=== PATIENT | male | born 1950 | race Caucasian/White ===

== ENCOUNTER → 2016-11-13 | Outpatient (CLI) | payer MEDICARE ==
[2016-11-13 13:14] VITALS: BP 142/92; PULSE 63; RESP 16; TEMP 97.9
--- NOTE | 2016-11-14 10:59 | P.PN ---
Subjective This is follow-up visit for this patient with a history of severe and chronic low back pain secondary to lumbar degenerative disc disease, lumbar facet arthropathy, and failed back surgery syndrome, with the spinal cord stimulatory trial and patient was referred to see Dr. Bingham for possible spinal cord simulator permanent implant, and Dr. Bingham recommend that patient would be better off to have intrathecal pain pump, and he did not recommend to proceed with the spinal cord stim date of implantation we have done interventional pain management injection,, and is currently on pain medications 1-MS Contin 15 mg every 12 hours 2- Percocet 10/325 every 6 hours 3- Cymbalta 30 mg daily Patient denies any side effects of the medication, denies excessive drowsiness or sleepiness, denies suicidal ideation, and reports that the current pain medication is NOT helping To control the pain and improve activity of daily living Physical Examinations : 1-Constitutiona : Cooperative , not in acute distress . 2-HEENT : nech ; supple , no Lymphadenopathy , no Thyromegaly , normal thyroid size . eyes : no ptosis , no icterus, no photophobia . ENT : normal of hearing , normal oropharynx , no Thrush . 3- Respiratory : Chest clear to auscultations Bilaterally , no wheezing , no Rhonchi . 4- Cardiovascular : regular rate and rhythem , S1 , S2 , no S3 , no S4. 5- Gastrointestinal : abdomen soft no tenderness , bowel sounds positive all four quadrents , no organomegally . 6- Genitourinary : Defferred . 7- neurologic : Cranial nerve II to XII intact , no focal neurological deffecit . 8-psychatric : alert , oriented X 3 , appropriate affect , intact judgment and insight . 9-Lymphatic : no Lymphadenopathy . 10- musculoskeltal : exams of the cervical spine = motor strength normal bilateral upper extremities facet loading test cervical area positive. exams of the Lumber spine = motor strength lower extremities ,thigh and legs .5/5 deep tendon reflexes : normal Knee Jerk , normal ankle Jerk . lumber facet Loading Test positive strait leg raising test positive at 30 degree , RT ,LT , Fabere test positive RT and positive LT . Range of motion: Range of motion in flexion of the lumbar spine 30 degrees Range of motion range of motion of extension of the lumbar spine 10 Sever tenderness over the Sacroiliac joint on the Right , and Left side Assessment and plan = - Chronic low back pain secondary to lumbar degenerative disc disease , lumbar spondylosis with facet arthropathy without myelopathy , failed back surgery syndrome -chronic and current use of high-risk medication (Opioids). The patient was counseled about risk of opioid use, psychological risk associated with opioids and was orally counseled to not overuse , abuse , divert ,or sell dictations to take medications as prescribed only , and to restore medication in safe location , and patient counseled against driving while using narcotic medications, and also not to use alcohol or any illicit recreational drugs the patient's verbalized understanding that the lack of compliance will result in failure to renew narcotic prescription and possible discharge from the clinic - diagnoses, prognosis, and treatment options including but not limited to physical therapy, surgical interventions, interventional therapies and medication management including narcotics and adjuvant medication were discussed with the patient and all questions answered to the patient's satisfaction. -medication refile =1- increase MS Contin to 15 mg every 8 hours dispense 90 with 1 refill 2- continue Percocet 10/325 every 6 hours for breakthrough pain dispense 120 with one refill 3-continue Cymbalta 30 mg daily and patient will be candidate for intrathecal pain pump in the future if pain is not well controlled this option discussed with the patient and he preferre not to do intrathecal pain pump now, he preferred to wait to evaluate the efficacy of the medication management Objective - Vital Signs Vital signs: Vital Signs Temp 97.9 F 11/13/16 13:03 Pulse 63 11/13/16 13:03 Resp 16 11/13/16 13:03 BP 142/92 11/13/16 13:03 Pulse Ox 95 11/13/16 13:03 Intake & Output 11/13/16 11/14/16 11/14/16 18:59 06:59 18:59 Weight 103.873 kg
== END | disposition home or self-care (01) ==
LOC: PNWHC3 12:42
PROVIDERS: ATTEND Specialist
DX: G89.29 Other chronic pain (principal); M51.36 Other intervertebral disc degeneration, lumbar region; M47.816 Spondylosis without myelopathy or radiculopathy, lumbar region; M46.96 Unspecified inflammatory spondylopathy, lumbar region; Z79.891 Long term (current) use of opiate analgesic; Z79.899 Other long term (current) drug therapy
CPT/HCPCS: 99211

== ENCOUNTER → 2017-01-08 | Outpatient (CLI) | payer MEDICARE ==
[2017-01-08 12:22] VITALS: BP 139/79; PULSE 55; RESP 16; TEMP 98.1
--- NOTE | 2017-01-08 13:10 | P.CONS ---
History of Present Illness - Reason for Consult Consult date: 01/08/17 - Chief Complaint Severe persistent low back pain radiating into the legs - History of Present Illness This pleasant 66-year-old male presents today for continuing evaluation of possible therapeutic intervention with regards to his chronic low back and lower extremity related pain complaints. He is interviewed and examined and the chart is reviewed full with patient's full consent. Mr. Romero relates long-standing history of low back lower extremity related symptoms dating back many many years. He most recently has undergone a trial of the spinal cord stimulator which did not provide him with a noticeable and/or significant improvement in his levels pain symptomatology, or his quality of life. The stimulator lead was eventually removed and he is back to essentially his baseline level of discomfort. Despite taking 45 mg of MS Contin in 3 divided doses daily as well as for 10 mg oxycodone tablets as breakthrough medication on a daily basis, he still is experiencing significant discomfort and disability almost every day. He describes pain still as an aching throbbing burning sensation in the midportion of his low back with direct and immediate extension and the bilateral paravertebral areas increased amounts of activity or exercise also workings both the neuraxial as well as the radicular component to his pain. It was at this point time I had a long discussion with Mr. Romero regarding a variety of therapeutic options available to him. I told him that I was not ready to completely give up on either spinal cord stimulation and/or intrathecal pump placement as a definitive course of therapy for him. At today' s visit however I we agreed that we would increase his total MS Contin dosing to 60 mg in 2 divided doses (up from 45 mg), and continue with the oxycodone dosing for breakthrough pain medication as previously ordered. We would see the efficacy of his new pharmacologic regimen, and make further decisions based upon his been a pleasure again participating this very nice traumas care and we look forward to seeing him in the next 4-6 weeks Past Medical History Past Medical History: Eye Disorder, Musculoskeletal Disorder, Osteoarthritis (OA ) Additional Past Medical History / Comment(s): degenerative arthritis of the spine, macular degeneration rt eye, PAIN CLINIC History of Any Multi-Drug Resistant Organisms: None Reported Past Surgical History: Back Surgery, Heart Catheterization, Hernia Repair, Joint Replacement, Orthopedic Surgery Additional Past Surgical History / Comment(s): back surgeries x4 with fusion of 5 disc, ramin. knee replacement, hemorrhoid, COLONOSCOPY, l hand tendon arthroscopy 06/03/2016, r hand surgery 07/2016, RT EYE injection 07/12/16 FOR MACULAR DEGENERATION Past Anesthesia/Blood Transfusion Reactions: No Reported Reaction Past Psychological History: No Psychological Hx Reported Smoking Status: Former smoker Past Alcohol Use History: Occasional Additional Past Alcohol Use History / Comment(s): STARTED SMOKING AT AGE 18 QUIT 1980 SMOKED 1/2PPD Past Drug Use History: None Reported Additional Drug Use History / Comment(s): quit smoking 40 yrs ago, only smoked 2 -3 yrs. - Past Family History Father Family Medical History: Cancer Additional Family Medical History / Comment(s): PROSTATE CANCER Medications and Allergies Home Medications Medication Instructions Recorded Confirmed Type Ascorbic Acid [Vitamin C] 500 mg PO DAILY 09/12/15 01/08/17 History Cholecalciferol [Vitamin D3] 1,000 unit PO DAILY 09/12/15 01/08/17 History DULoxetine HCL [Cymbalta] 30 mg PO HS 09/12/15 01/08/17 History Vit A/Vit C/Vit E/Zinc/Copper 1 cap PO DAILY 09/12/15 01/08/17 History [ICAPS SOFTGEL] Morphine Sulfate ER [Ms Contin] 30 mg PO BID 01/08/17 01/08/17 History Allergies Allergy/AdvReac Type Severity Reaction Status Date / Time Iodine and Iodide Containing Allergy Severe Rash/Hives Verified 01/08/17 12:13 Produc fentanyl [From Duragesic] Allergy Rash/Hives Verified 01/08/17 12:13 iodine Allergy Rash/Hives Verified 01/08/17 12:13 Physical Exam Osteopathic Statement: *. No significant issues noted on an osteopathic structural exam other than those noted in the History and Physical/Consult. Vitals: Vital Signs Temp Pulse Resp BP Pulse Ox 01/08/17 12:15 98.1 F 55 L 16 139/79 95 Intake and Output 01/07/17 01/08/17 01/08/17 22:59 06:59 14:59 Other: Weight 104.326 kg Patient Weight 01/09/17 06:59 Weight 104.326 kg
== END | disposition home or self-care (01) ==
LOC: PNWHC3 11:58
PROVIDERS: ATTEND Anesthesiology
DX: G89.29 Other chronic pain (principal); M54.5 Low back pain; M79.662 Pain in left lower leg; M79.661 Pain in right lower leg; M47.9 Spondylosis, unspecified; Z98.1 Arthrodesis status; Z79.899 Other long term (current) drug therapy; Z87.891 Personal history of nicotine dependence; Z88.8 Allergy status to other drugs, medicaments and biological substances
CPT/HCPCS: 99211

== ENCOUNTER → 2017-03-05 | Outpatient (CLI) | payer MEDICARE ==
[2017-03-05 14:51] VITALS: BP 153/89; PULSE 57; RESP 16; TEMP 98
--- NOTE | 2017-03-05 15:24 | P.PN ---
Subjective This is follow-up visit for this patient with a history of severe and chronic low back pain , diagnosed with failed back surgery syndrome and lumbar area, patient had multiple lumbar laminectomy and fusion surgeries, and he continued to have severe low back pain we have done interventional pain management injection, spinal cord stimulator trial, and it was negative, and is currently on pain medications 1-MS Contin 60 mg twice a day 2-Percocet 10/325 every 6 hours 3-symbiotic for 30 mg daily at bedtime Patient denies any side effects of the medication, denies excessive drowsiness or sleepiness, denies suicidal ideation, and reports that the current pain medication is NOT helping To control the pain and improve activity of daily living Patient denies any motor or sensory deficit , patient denies any fever or night sweats, denies any change in the bowel movements or urination, the pain intensity interfering with his quality of life and patient not able to do any activity of daily livings because of the intensity of the pain Physical Examinations : 1-Constitutiona : Cooperative , not in acute distress . 2-HEENT : nech ; supple , no Lymphadenopathy , no Thyromegaly , normal thyroid size . eyes : no ptosis , no icterus, no photophobia . ENT : normal of hearing , normal oropharynx , no Thrush . 3- Respiratory : Chest clear to auscultations Bilaterally , no wheezing , no Rhonchi . 4- Cardiovascular : regular rate and rhythem , S1 , S2 , no S3 , no S4. 5- Gastrointestinal : abdomen soft no tenderness , bowel sounds positive all four quadrents , no organomegally . 6- Genitourinary : Defferred . 7- neurologic : Cranial nerve II to XII intact , no focal neurological deffecit . 8-psychatric : alert , oriented X 3 , appropriate affect , intact judgment and insight . 9-Lymphatic : no Lymphadenopathy . 10- musculoskeltal : exams of the cervical spine = motor strength normal bilateral upper extremities facet loading test cervical area positive. exams of the Lumber spine = motor strength lower extremities ,thigh and legs .5/5 deep tendon reflexes : normal Knee Jerk , normal ankle Jerk . lumber facet Loading Test positive strait leg raising test positive at 30 degree , RT ,LT , Fabere test positive RT and positive LT . Range of motion: Range of motion in flexion of the lumbar spine 30 degrees Range of motion range of motion of extension of the lumbar spine 10 Sever tenderness over the Sacroiliac joint on the Right , and Left side Assessment and plan = - Chronic low back pain secondary to lumbar failed back surgery syndrome and lumbar area - chronic and current use of high-risk medication (Opioids). The patient was counseled about risk of opioid use, psychological risk associated with opioids and orally counseled to not overuse , divert,or sell dictations to take medications as prescribed only , and to restore medication in safe location , and the patient counseled against driving while using narcotic medications, and also not to use alcohol or any illicit recreational drugs, the patient's verbalized understanding that the lack of compliance will result in failure to renew narcotic prescription and possible discharge from the clinic - diagnoses, prognosis, and treatment options including but not limited to physical therapy, surgical interventions, interventional therapies , and medication management including narcotics and adjuvant medication were discussed with the patient and all questions answered Patient continued to have severe pain , even though he is on a high-dose pain medication, patient could be a candidate to have intrathecal pain pump, risk and benefit of intrathecal pain pump discussed with the patient and he agreed with the preceding patient will be scheduled to have, intrathecal pain pump trial, patient already had psychiatric evaluation done in the past, there was no contraindication to the pump, patient given prescription refills for MS Contin 60 mg twice a day dispense 60 with 1 refill and Percocet 10/325 every 6 hours dispense 120 with one refill and Cymbalta 30 mg daily at bedtime dispense 30 with one refill Objective - Vital Signs Vital signs: Vital Signs Temp 98.0 F 03/05/17 14:45 Pulse 57 L 03/05/17 14:45 Resp 16 03/05/17 14:45 BP 153/89 03/05/17 14:45 Pulse Ox 97 03/05/17 14:45 Intake & Output 03/04/17 03/05/17 03/05/17 18:59 06:59 18:59 Weight 102.058 kg
== END | disposition home or self-care (01) ==
LOC: PNWHC3 13:37
PROVIDERS: ATTEND Specialist
DX: M54.5 Low back pain (principal); G89.29 Other chronic pain; M96.1 Postlaminectomy syndrome, not elsewhere classified; Z79.891 Long term (current) use of opiate analgesic
CPT/HCPCS: 99211

== ENCOUNTER 2017-04-21 06:45 | Day surgery (SDC) | payer MEDICARE ==
[2017-04-21] MEDS ORDERED: LACTATED RINGERS 1,000 ML IV SCH (07:45)
[2017-04-21] MEDS ORDERED: MORPHINE SULFATE (PF) 1 MG/ML AMP INTRATHECA ONE (08:00)
[2017-04-21] MEDS ORDERED: LIDOCAINE 1% 20 ML VIAL (10MG/ML) FOR IV START INTRADERMA ONE (08:07)
[2017-04-21 08:22] VITALS: TEMP 97.8
[2017-04-21] MEDS ORDERED: MIDAZOLAM 2 MG/2 ML VIAL ONE (08:28)
[2017-04-21] MEDS ORDERED: IOHEXOL 180 MG/ML 1 ML ML ONE (08:28)
[2017-04-21] MEDS ORDERED: MORPHINE SULFATE (PF) 1 MG/ML AMP ONE (08:28)
[2017-04-21] MEDS ORDERED: IV FLUID CONTINUATION 1,000 ML IV ONE (08:46)
[2017-04-21 09:23] VITALS: BP 153/82; PULSE 55; RESP 16
--- NOTE | 2017-04-21 09:27 | FL ---
EXAMINATION TYPE: FL guided pain mgmt statistic DATE OF EXAM: 04/21/2017 CLINICAL HISTORY: Low back pain. Lumbar pain pump trial. TECHNIQUE: Fluoroscopy. COMPARISON: MRI lumbar spine August 26, 2016. FINDINGS: Fluoroscopic guidance was provided during pain relief procedure performed by Dr. Clark . A total of 8 seconds of fluoroscopic time was utilized during the procedure and two spot images are a cquired. Images acquired shows needle localization from posterior approach at L4 level. Artificial d isc material is present above this. IMPRESSION: As Above.
--- NOTE | 2017-04-21 11:27 | P.PCN ---
Date of Procedure: 04/21/17 Preoperative Diagnosis: Postoperative Diagnosis: Procedure(s) Performed: Implants: Surgeon: Joon Clark Pathology: none sent Condition: stable Disposition: PACU Indications for Procedure: Operative Findings: Description of Procedure: PREOPERATIVE DIAGNOSIS: -Postlaminectomy syndrome, lumbar -Intractable back pain POSTOPERATIVE DIAGNOSIS: same ANESTHESIA: : Local with 1% lidocaine; IV sedation with Versed. EBL: Minimal. PROCEDURE INDICATION: History of back pain secondary to lumbar postlaminectomy syndrome that has been only moderately responsive to oral opioids but not without intolerable opioid-related side effects including sedation and constipation. Only intrathecal fentanyl and morphine are available at our institution and the patient has an allergy to fentanyl and thus intrathecal morphine was used. No use of blood thinners. Fluoroscopy was used to optimize visualization of the needle placement, to maximize safety, and to decrease patients discomfort. Patient did not use any of his oral narcotics this morning. PROCEDURE DESCRIPTION: The patient was seen and identified in the preoperative area. Risks, benefits, complications, and alternatives, with risks including but not limited to bleeding, infection, nerve damage, incomplete pain relief, and allergic reactions to medications, were discussed with the patient. The patient agreed to proceed with the procedure and signed the consent after all questions were answered. IV was started, and vital signs were stable. Patient was taken to the OR and time out was completed. The patient was placed in the prone position on procedure table and a pillow was placed under the abdomen to reduce lumbar lordosis. The lumbosacral area was prepped and draped in the usual sterile fashion. Critical pause was taken. Vital signs were closely monitored during the procedure. Conscious sedation was used during the procedure to decrease patients anxiety. The fluoroscopic camera was then placed over the lumbar spine to identify the L4-5 interlaminar space. The skin and deeper structures were infiltrated with 1 mL of 1% lidocaine. Then a 22-gauge 3-1/2-inch spinal needle was guided by fluoroscopy using the paramedian approach into the intrathecal space and there was positive back flow of CSF. There was no paresthesia. Then after negative aspiration for blood and negative for paresthesia and positive aspiration for CSF, preservative free morphine 1 mg was injected and 1 ml PF 0.9% NS was injected after to spread the medication. The needle was withdrawn intact, skin was cleansed, and bandages were applied. COMPLICATIONS: None. COMMENTS: Patient reported a 70% improvement in pain level after the procedure but was still having some pain with walking. DISPOSITION / PLANS: The patient was placed in a supine position and transferred to the recovery area in a stable condition for observation for 4hrs and remained stable until discharge home. Level of pain and occurrence of any side effects were monitored throughout the stay. Home discharge instructions given to the patient by the staff and it is understood that someone needed to stay with the patient over the next 24hrs and if difficulty of breathing or changes in the level of consciousness should occur to go to the nearest ER; I also educated the patient's regarding nausea, vomiting, constipation, sedation, possibility of severe respiratory depression, and possible postdural puncture headache. The patient was reexamined prior to discharge and there were no issues.
== END 2017-04-21 10:23 | disposition home or self-care (01) ==
LOC: ORPAIN 06:45
PROVIDERS: ATTEND Anesthesiology
DX: G89.29 Other chronic pain (principal); M96.1 Postlaminectomy syndrome, not elsewhere classified; F32.9 Major depressive disorder, single episode, unspecified; Z88.5 Allergy status to narcotic agent; Z88.8 Allergy status to other drugs, medicaments and biological substances; Y83.8 Other surgical procedures as the cause of abnormal reaction of the patient, or of later complication, without mention of misadventure at the time of the procedure; Z79.891 Long term (current) use of opiate analgesic; Z79.899 Other long term (current) drug therapy
CPT/HCPCS: 62350; J2250; Q9965; J2274; 99152

== ENCOUNTER → 2017-05-26 | Outpatient (CLI) | payer MEDICARE ==
[2017-05-26 11:09] VITALS: BP 126/77; PULSE 56; RESP 16; TEMP 98.6
--- NOTE | 2017-05-26 11:33 | P.PN ---
Progress Note - Text This is a 67-year-old gentleman with history of failed back surgery syndrome. The patient underwent intrathecal morphine trial a few weeks ago which gave him more than 80% of pain relief for about 24 hours. It also give him short period of difficulty with urination. During this 24 hours of pain improvement he did not use any of his oral opioids. The patient denies any history of prostate problems. This point I think the patient may benefit from getting intrathecal morphine pump implantation I will refer him Dr. Bingham for that. The plan will be to reduce his oral opioids gradually over time after he gets the pump placed. Today I'll give her prescription for 2 months of his MS Contin 60 mg twice a day and Percocet 10 mg 3-4 times a day. He is alert oriented 3 in no apparent distress he does not show any drug-seeking behavior.
== END ==
LOC: PNWHC3 10:51
PROVIDERS: ATTEND Anesthesiology
DX: M54.9 Dorsalgia, unspecified (principal)
CPT/HCPCS: 99211

== ENCOUNTER → 2017-07-21 | Outpatient (CLI) | payer MEDICARE ==
[2017-07-21 13:31] VITALS: BP 138/68; PULSE 58; RESP 16; TEMP 97.9
--- NOTE | 2017-07-21 13:48 | P.PN ---
Progress Note - Text Progress Note Date: 07/21/17 This is a 67-year-old male with history of failed back surgery syndrome and chronic lower back pain. The patient had very good response to an intrathecal opioid trial and he was scheduled to have intrathecal opioid pump placed by Dr. Bingham however the case was canceled due to the inability to receive the pump from its commercial appraiser.] The patient is doing relatively well with his Daily dose of opioids including MS Contin 60 mg twice a day and Percocet 10 mg 4 times a day. And today I will give him prescription for the above-mentioned medications for 2 months in addition to his Cymbalta 30 mg once a day. The patient is alert oriented 3 no apparent distress he came with his and he denies any suicidal ideation ideation and he does not show any signs of oversedation. We will see the patient 2 months from now.
== END ==
LOC: PNWHC3 12:47
PROVIDERS: ATTEND Anesthesiology
DX: M54.5 Low back pain (principal); G89.29 Other chronic pain; Z79.891 Long term (current) use of opiate analgesic
CPT/HCPCS: 99211

== ENCOUNTER → 2017-09-11 | Outpatient (CLI) | payer MEDICARE ==
[2017-09-11 12:16] VITALS: BP 130/72; PULSE 55; RESP 16
--- NOTE | 2017-09-11 13:59 | P.PCN ---
Date of Procedure: 09/11/17 Procedure(s) Performed: OPERATION: Intrathecal pain pump analysis, programming and reprogramming, and intrathecal pain pump initial filling . PREOPERATIVE DIAGNOSES: 1. opioid tolerance 2. failed back surgery syndrome lumbar area POSTOPERATIVE DIAGNOSES: Same as. Preop Diagnoses ANESTHESIA: None. CONDITION: Stable. Description of the procedure; Intrathecal pain pump analysed ,it showed patient currently had reservoir volume[ 19,5 ] mL. The patient is receiving medication normal saline, (this is the initial pump filling. The location of the pump ( left upper quadrent abdominal area ) Prepped with chlorhexidine x3 , then using 22-gauge needle [employer] kit advanced through the pump port, Total of [ 20 ] ml removed from the pump, the pump refills with the new medication total volume [ 40 ] ml . The concentration of morphine sulfate 5 mg /ml , The patient will get daily dose morphine sulfate 0.6 mg/day and patien follow -up in the pain clinic in 2-3 weeks for medication adjustment Condition for Percocet 7.5/325 every 6 hours dispensed 90 with 2 refills given
== END | disposition home or self-care (01) ==
LOC: PNWHC3 11:28
PROVIDERS: ATTEND Specialist
DX: Z01.818 Encounter for other preprocedural examination (principal); Z79.891 Long term (current) use of opiate analgesic; Z79.899 Other long term (current) drug therapy
CPT/HCPCS: 62370; G0463; 99211

== ENCOUNTER → 2017-09-25 | Outpatient (CLI) | payer MEDICARE ==
[2017-09-25 12:16] VITALS: BP 133/65; PULSE 55; RESP 16
--- NOTE | 2017-09-25 12:51 | P.PN ---
Subjective Progress Note Date: 09/25/17 this is 67 years old male , with chronic pain syndrome secondary to ,failed back surgery syndrome ,and opioid tolerance, he was on MS Contin 60 mg twice a day and Percocet 10/325 every 6 hours, she had intrathecal pain pump implanted few weeks ago, and last visit we started him on intrathecal opioid, and patient here today to evaluate his response to the intrathecal treatment, the Pain pump analyzed, and short patient currently on morphine sulfate intrathecally concentration 5 mg per mL and is receiving a daily dose of morphine 0.6 mg per day, patients reported that his pain level 3/10 ,and he reported that he feels symptoms of withdrawal,if he does not take his Percocet ,he feels agitated and some runny nose , denies any side effect of intrathecal treatment , the intrathecal pain medication that helped him significantly and he is able to function more , his activity of daily livings improved significantly ,today, I analyzed, the intrathecal pain pump ,and I increased the dose to 0.7 mg per day , 17% increase dose ,and patient will follow up in the pain clinic in 2-1/2 months for intrathecal pain pump refill , and a give the patient prescription for Percocet 5/325 twice a day 60 with 1 refill and the next visit he will not need any oral medication Objective - Vital Signs Vital signs: Vital Signs Temp Pulse 55 L 09/25/17 12:09 Resp 16 09/25/17 12:09 BP 133/65 09/25/17 12:09 Pulse Ox 97 09/25/17 12:09 Intake & Output 09/24/17 09/25/17 09/25/17 18:59 06:59 18:59 Weight 101.605 kg
== END | disposition home or self-care (01) ==
LOC: PNWHC3 11:46
PROVIDERS: ATTEND Specialist
DX: G89.4 Chronic pain syndrome (principal); Z79.891 Long term (current) use of opiate analgesic; Z98.890 Other specified postprocedural states
CPT/HCPCS: 99211

== ENCOUNTER → 2017-11-24 | Day surgery (SDC) | payer MEDICARE ==
[2017-11-13 14:30] VITALS: BMI 33.3
[~2017-11-24] MED LIST: HYDROmorphone 0.5 MG/0.5 ML SYRINGE IVP PRN; KETAMINE 10 MG/ML 20 ML VIAL ONE; LACTATED RINGERS 1,000 ML IV ONE; LACTATED RINGERS 1,000 ML IV SCH; LIDOCAINE 1% 20 ML VIAL (10MG/ML) FOR IV START INTRADERMA PRN; LIDOCAINE 1% INJ 10MG/ML (20 ML MDV) ONE; MIDAZOLAM 2 MG/2 ML VIAL IV ONE; MIDAZOLAM 2 MG/2 ML VIAL ONE; ONDANSETRON 4 MG/2 ML VIAL IVP ONE; PROPOFOL 10 MG/ML 20 ML VIAL IV ONE; Pre Op ABX Message 1 EACH MISC MISCELLANE ONE; ROPIVACAINE 5 MG/ML 30 ML VIAL ONE; fentaNYL (PF) 50 MCG/ML 2 ML AMP ONE
[2017-11-24 13:29] VITALS: RESP 16; TEMP 98.2
[2017-11-24 15:55] VITALS: BP 155/95; PULSE 62
--- NOTE | 2017-11-24 16:41 | XR ---
Fluoroscopy INDICATION: Pain FINDINGS: Fluoroscopy time: 41 seconds. Images obtained: 2. IMPRESSIONS: 1. Documentation of fluoroscopy.
--- NOTE | 2017-11-24 18:09 | OP ---
OPERATIVE REPORT DATE OF SERVICE: 11/24/2017. 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 PROCEDURE: Excision of scaphoid with midcarpal arthritis, distal radial bone graft, and K-wire fixation of the right wrist. BEVERAGE DISTILLER: Liz Gambino NP DESCRIPTION OF PROCEDURE: The patient was taken to the Operative Suite after an axillary block was performed by the Department of Anesthesia with good result. The hand was prepped and draped in the usual manner. The arm was then elevated, exsanguinated, and cuff was inflated to 250 mm of mercury. Longitudinal incision was made over the dorsum of the wrist. Dissection was taken through the skin and subcutaneous tissue, with care taken to avoid sensory nerves. The extensor retinaculum was then opened in the third compartment, reflecting the extensor pollicis longus to the radial side. The subperiosteal dissection was then performed underneath the 4th and 5th dorsal extensor compartments. A longitudinal arthrotomy was therefore performed and developed, exposing the wrist joint. Intraoperatively, the radial scaphoid joint was completely devoid of articular cartilage. In addition, the capital lunate joint was also devoid of articular cartilage. The radiolunate joint however, was well preserved. The scaphoid was osteotomized into small fragments and removed by a rongeur, in piecemeal fashion. Combination of rongeur, small osteotomy and curette was then used to decorticate the lunate triquetrum, triquetrum hamate and hamate capitate joints. At this time, Kirby's tubercle was osteotomized and a generous portion of cancellous bone was harvested from the distal radius. This bone was then packed into the four quadrant fusion just described. Fixation was accomplished internally with either Luis screws or K wires. Note that prior to fixation a ?jaelyn stick? dorsal K wire was drilled through the lunate so it could be reduced and taken out of its DISI deformity. The wound had been thoroughly irrigated throughout the procedure, including prior to application of the bone graft. The wrist was again irrigated at this point and the dorsal capsule was closed where possible. The extensor retinaculum was then closed with a running 4-0 PDS suture. The wound was again irrigated. Tourniquet was released. Hemostasis acquired with pressure and electrocautery. The skin was then closed with running 5-0 nylon suture. A soft, bulky dressing was then applied, followed by application of a volar plaster splint, immobilizing the wrist in a neutral position. The patient was then taken to the Recovery Room in satisfactory condition. VIDHYA / SUNDAY: [id number] /
== END ==
LOC: OR 11:59
PROVIDERS: ATTEND Orthopaedic Surgery Hand Surgery
DX: M19.031 Primary osteoarthritis, right wrist (principal); I10 Essential (primary) hypertension; I25.10 Atherosclerotic heart disease of native coronary artery without angina pectoris; E11.9 Type 2 diabetes mellitus without complications; G89.29 Other chronic pain; M54.5 Low back pain; Z86.19 Personal history of other infectious and parasitic diseases; Z86.11 Personal history of tuberculosis; J45.909 Unspecified asthma, uncomplicated; E07.9 Disorder of thyroid, unspecified; B20 Human immunodeficiency virus [HIV] disease; R60.0 Localized edema; Z86.73 Personal history of transient ischemic attack (TIA), and cerebral infarction without residual deficits; Z79.891 Long term (current) use of opiate analgesic; Z91.041 Radiographic dye allergy status
CPT/HCPCS: 73100; 25332; J2250; J2001; J3010; J2795; J2704

== ENCOUNTER → 2017-12-03 | Day surgery (SDC) | payer MEDICARE ==
[2017-12-03 13:18] VITALS: BP 154/96; PULSE 57; RESP 16
--- NOTE | 2017-12-03 13:42 | P.PN ---
Progress Note - Text Progress Note Date: 12/03/17 PROCEDURE: Intrathecal pain pump analysis, programming and reprogramming, and intrathecal pain pump refill. PREOPERATIVE DIAGNOSES: 1. near empty intrathecal pain pump time for refill. 2. opioid tolerance 3. lumbar PLPS POSTOPERATIVE DIAGNOSES: 1. near empty intrathecal pain pump time for refill. 2. opioid tolerance 3. lumbar PLPS ANESTHESIA: None. CONDITION: Stable. 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 Patient previously had an intrathecal pump placed, which is now close to empty, and patient presents for refill today. Patient denies any side effects of the intrathecal medication, including new weakness, new numbness , excessive drowsiness or sleepiness, nausea/vomiting, weight gain, or night sweats. Patient also denies suicidal ideation, and reports that the current pain medication is helping control the chronic pain and improve the patient's activities of daily living. DESCRIPTION: The intrathecal pain pump was analyzed and showed that the patient currently has reservoir volume of [11.6] mL. The patient is receiving intrathecal Morphine sulfate PF at concentration [5] mg / ml. Patient receiving daily dose of Morphine Sulfate [0.7] mg/day. The location of the pump (left buttock) was prepped with chlorhexidine x3. Then , the 22-gauge needle from the [employer] kit was advanced through the pump port. Total of [14] ml was removed from the pump, and it was refilled with the new medication total volume of [40] ml of a solution containing morphine sulfate at concentration [5] mg /ml. The patient will continue with dose increase 15% morphine [0.8] mg/day. The patient is no longer using any oral opioids and is off most of his adjuvant medications as well. Patient will follow up in three months for pump refill.
== END ==
LOC: PNWHC3 12:57
PROVIDERS: ATTEND Anesthesiology
DX: G89.29 Other chronic pain (principal); M96.1 Postlaminectomy syndrome, not elsewhere classified; Z45.1 Encounter for adjustment and management of infusion pump; Z79.891 Long term (current) use of opiate analgesic
CPT/HCPCS: 62370

== ENCOUNTER 2017-12-08 21:00 | Observation (INO) | payer MEDICARE ==
--- NOTE | 2017-12-08 21:49 | ED ---
SOB HPI - General Chief Complaint: Shortness of Breath Stated Complaint: chest pain/labored breathing Time Seen by Provider: 12/08/17 21:18 Source: patient, family Mode of arrival: wheelchair Limitations: no limitations - History of Present Illness MD Complaint: chest pain Onset/Timin -: hour(s) Severity: moderate Quality: sharp Consistency: intermittent Worsens With: movement, inspiration Associated Symptoms: denies other symptoms Treatments Prior to Arrival: none - Related Data Home Medications Medication Instructions Recorded Confirmed Ascorbic Acid [Vitamin C] 500 mg PO DAILY 09/12/15 12/03/17 Cholecalciferol [Vitamin D3] 1,000 unit PO DAILY 09/12/15 12/03/17 Vit A/Vit C/Vit E/Zinc/Copper 1 cap PO DAILY 09/12/15 12/03/17 [ICAPS SOFTGEL] Morphine Pain Pump 0.597 pump SQ CONTINUOUS 11/13/17 12/03/17 Hydrocodone/Acetaminophen [[place] 1 tab PO Q4H PRN 12/03/17 12/03/17 10-325] Allergies Allergy/AdvReac Type Severity Reaction Status Date / Time No Known Allergies Allergy Verified 12/09/17 00:13 Review of Systems ROS Statement: Those systems with pertinent positive or pertinent negative responses have been documented in the HPI. ROS Other: All systems not noted in ROS Statement are negative. Constitutional: Denies: fever, chills Respiratory: Reports: dyspnea. Denies: cough, wheezes, hemoptysis Cardiovascular: Reports: as per HPI, chest pain. Denies: palpitations, orthopnea, edema, syncope Gastrointestinal: Denies: abdominal pain, nausea, vomiting Genitourinary: Denies: dysuria Musculoskeletal: Denies: back pain Skin: Denies: rash Neurological: Denies: headache Past Medical History Past Medical History: Deep Vein Thrombosis (DVT), Eye Disorder, Musculoskeletal Disorder, Osteoarthritis (OA) Additional Past Medical History / Comment(s): degenerative arthritis of the spine, macular degeneration rt eye, PAIN CLINIC History of Any Multi-Drug Resistant Organisms: None Reported Past Surgical History: Back Surgery, Heart Catheterization, Hernia Repair, Joint Replacement, Orthopedic Surgery Additional Past Surgical History / Comment(s): back surgeries x4 with fusion of 5 disc, ramin. knee replacement, hemorrhoid, COLONOSCOPY, l hand tendon arthroscopy 06/03/2016, r hand surgery 07/2016, RT EYE injection 07/12/16 FOR MACULAR DEGENERATION. Intrathecal Pain Pump surgically implanted - 08-25-2017. RIGHT HAND SURGERY WITH PINS. right hand bone graft 11/24/17. Past Anesthesia/Blood Transfusion Reactions: No Reported Reaction Past Psychological History: No Psychological Hx Reported Smoking Status: Former smoker - Past Family History Father Family Medical History: Cancer Additional Family Medical History / Comment(s): PROSTATE CANCER General Exam Limitations: no limitations General appearance: alert, in no apparent distress Head exam: Present: atraumatic, normocephalic Eye exam: Present: normal appearance. Absent: scleral icterus, conjunctival injection ENT exam: Present: normal oropharynx Respiratory exam: Present: chest wall tenderness. Absent: normal lung sounds bilaterally, respiratory distress, wheezes, rales, rhonchi, stridor, accessory muscle use, decreased breath sounds, prolonged expiratory Cardiovascular Exam: Present: regular rate, normal rhythm, normal heart sounds. Absent: systolic murmur, diastolic murmur, rubs, gallop GI/Abdominal exam: Present: soft. Absent: distended, tenderness, guarding, rebound Extremities exam: Present: normal inspection, normal capillary refill. Absent: pedal edema, calf tenderness Back exam: Present: normal inspection. Absent: CVA tenderness (R), CVA tenderness (L) Neurological exam: Present: alert Skin exam: Present: warm, dry, intact, normal color. Absent: rash Course Vital Signs 12/08/17 12/08/17 12/09/17 21:01 22:51 00:12 Temperature 97.8 F 98.5 F Pulse Rate 83 65 64 Respiratory 20 18 18 Rate Blood Pressure 152/81 125/61 144/66 O2 Sat by Pulse 97 97 97 Oximetry Medical Decision Making - Lab Data Result diagrams: 12/08/17 21:25 12/08/17 21:25 Lab Results 12/08/17 12/08/17 12/08/17 Range/Units 21:25 21:25 21:25 WBC 8.2 (3.8-10.6) k/uL RBC 4.48 (4.30-5.90) m/uL Hgb 12.4 L (13.0-17.5) gm/dL Hct 39.1 (39.0-53.0) % MCV 87.2 (80.0-100.0) fL MCH 27.6 (25.0-35.0) pg MCHC 31.7 (31.0-37.0) g/dL RDW 12.1 (11.5-15.5) % Plt Count 380 (150-450) k/uL Neutrophils % 53 % Lymphocytes % 33 % Monocytes % 10 % Eosinophils % 2 % Basophils % 1 % Neutrophils # 4.3 (1.3-7.7) k/uL Lymphocytes # 2.7 (1.0-4.8) k/uL Monocytes # 0.8 (0-1.0) k/uL Eosinophils # 0.2 (0-0.7) k/uL Basophils # 0.1 (0-0.2) k/uL D-Dimer 1.78 H (<0.60) mg/L FEU Sodium 141 (137-145) mmol/L Potassium 4.3 (3.5-5.1) mmol/L Chloride 104 (98-107) mmol/L Carbon Dioxide 28 (22-30) mmol/L Anion Gap 9 mmol/L BUN 14 (9-20) mg/dL Creatinine 0.80 (0.66-1.25) mg/dL Est GFR (MDRD) Af Amer >60 (>60 ml/min/1.73 sqM) Est GFR (MDRD) Non-Af >60 (>60 ml/min/1.73 sqM) Glucose 117 H (74-99) mg/dL Calcium 9.4 (8.4-10.2) mg/dL Total Bilirubin 0.2 (0.2-1.3) mg/dL AST 21 (17-59) U/L ALT 24 (21-72) U/L Alkaline Phosphatase 117 (38-126) U/L Troponin I (0.000-0.034) ng/mL Total Protein 7.2 (6.3-8.2) g/dL Albumin 3.6 (3.5-5.0) g/dL Amylase 53 (30-110) U/L Lipase 190 (23-300) U/L 12/08/17 Range/Units 21:25 WBC (3.8-10.6) k/uL RBC (4.30-5.90) m/uL Hgb (13.0-17.5) gm/dL Hct (39.0-53.0) % MCV (80.0-100.0) fL MCH (25.0-35.0) pg MCHC (31.0-37.0) g/dL RDW (11.5-15.5) % Plt Count (150-450) k/uL Neutrophils % % Lymphocytes % % Monocytes % % Eosinophils % % Basophils % % Neutrophils # (1.3-7.7) k/uL Lymphocytes # (1.0-4.8) k/uL Monocytes # (0-1.0) k/uL Eosinophils # (0-0.7) k/uL Basophils # (0-0.2) k/uL D-Dimer (<0.60) mg/L FEU Sodium (137-145) mmol/L Potassium (3.5-5.1) mmol/L Chloride (98-107) mmol/L Carbon Dioxide (22-30) mmol/L Anion Gap mmol/L BUN (9-20) mg/dL Creatinine (0.66-1.25) mg/dL Est GFR (MDRD) Af Amer (>60 ml/min/1.73 sqM) Est GFR (MDRD) Non-Af (>60 ml/min/1.73 sqM) Glucose (74-99) mg/dL Calcium (8.4-10.2) mg/dL Total Bilirubin (0.2-1.3) mg/dL AST (17-59) U/L ALT (21-72) U/L Alkaline Phosphatase (38-126) U/L Troponin I <0.012 (0.000-0.034) ng/mL Total Protein (6.3-8.2) g/dL Albumin (3.5-5.0) g/dL Amylase (30-110) U/L Lipase (23-300) U/L - EKG Data -: EKG Interpreted by Ca EKG shows normal: sinus rhythm, axis (Normal), intervals (Normal), QRS complexes (Normal), ST-T waves (Normal) Rate: normal (Rate 72 bpm) Interpretation: normal EKG Disposition Clinical Impression: Pleuritic chest pain Disposition: ADMITTED IP TO THIS [facility] Condition: Fair Referrals: Rolo Sesay MD [Primary Care Provider] - 1-2 days
[2017-12-08] MEDS ORDERED: MORPHINE SULFATE 4 MG/ML SYRINGE IV STA (21:55)
[2017-12-08 22:24] LABS: Basophils # (A) 0.1 k/uL (0-0.2); Basophils % (A) 1 %; Eosinophils # (A) 0.2 k/uL (0-0.7); Eosinophils % (A) 2 %; HCT 39.1 % (39.0-53.0); HGB 12.4 gm/dL (13.0-17.5); Lymphocytes # (A) 2.7 k/uL (1.0-4.8); Lymphocytes % (A) 33 %; MCH 27.6 pg (25.0-35.0); MCHC 31.7 g/dL (31.0-37.0); MCV 87.2 fL (80.0-100.0); Mean Platelet Volume 7.2; Monocytes # (A) 0.8 k/uL (0-1.0); Monocytes % (A) 10 %; Neutrophils # (A) 4.3 k/uL (1.3-7.7); Neutrophils % (A) 53 %; Platelet Count 380 k/uL (150-450); RBC 4.48 m/uL (4.30-5.90); RDW 12.1 % (11.5-15.5); WBC 8.2 k/uL (3.8-10.6)
--- NOTE | 2017-12-08 22:34 | XR ---
EXAMINATION TYPE: XR chest 2V DATE OF EXAM: 12/08/2017 COMPARISON: 08/09/2016 HISTORY: Postop. Spinal cord stimulator TECHNIQUE: Frontal and lateral views of the chest are obtained. FINDINGS: There is small linear density at the right lung base. The other lung dickey are clear. The re is no heart failure. There are chest leads. There is no evidence of pleural effusion. There is no pneumothorax. IMPRESSION: There is new mild subsegmental atelectasis at right lung base compared to old exam. Norm al heart.
[2017-12-08 22:43] LABS: ALT 24 U/L (21-72); AST 21 U/L (17-59); Albumin 3.6 g/dL (3.5-5.0); Alkaline Phosphatase 117 U/L (38-126); Amylase 53 U/L (30-110); Anion Gap 9 mmol/L; Blood Urea Nitrogen 14 mg/dL (9-20); Calcium 9.4 mg/dL (8.4-10.2); Carbon Dioxide 28 mmol/L (22-30); Chloride 104 mmol/L (98-107); Glucose 117 mg/dL (74-99); Lipase 190 U/L (23-300); Potassium 4.3 mmol/L (3.5-5.1); Sodium 141 mmol/L (137-145); Total Bilirubin 0.2 mg/dL (0.2-1.3); Total Protein 7.2 g/dL (6.3-8.2)
[2017-12-08] MEDS ORDERED: RX INFO: IV CONTRAST WAS GIVEN 1 EACH MISC MISCELLANE PRN (23:21)
[2017-12-08] MEDS ORDERED: methylPREDNISolone SOD SUCCI 125 MG/2 ML VIAL IV STA (23:23)
[2017-12-08] MEDS ORDERED: FAMOTIDINE 20 MG/2 ML VIAL IV STA (23:23)
[2017-12-08] MEDS ORDERED: diphenhydrAMINE 50 MG/ML 1 ML VIAL IVP STA (23:23)
--- NOTE | 2017-12-09 00:22 | CT ---
EXAMINATION TYPE: CT chest angio for PE DATE OF EXAM: 12/09/2017 COMPARISON: NONE HISTORY: No prior, chest pain, indigestion, pt s/p wrist surgery 2 weeks, elevated d-dimer, R/O PE CT DLP: 1000.30 mGycm Automated exposure control for dose reduction was used. CONTRAST: CT Chest for pulmonary embolism performed with with IV Contrast, patient injected with 100 mL of Omni paque 350. FINDINGS: There are 3-D post processed images. The lungs are clear of consolidation. There is no evidence of a pulmonary mass. There is mild linear density at the lung bases consistent with subsegmental atelectasis. There is no pericardial effusion. There is no pleural effusion. Thoracic aorta appears normal. There is no sign of aneurysm or dissection. I see no filling defects in the pulmonary arteries. There is no mediastinal adenopathy. There are no hilar masses. The bony thorax is intact. There is mild spurring in the thoracic spine. There is subop timal contrast opacification of the smaller branches of the pulmonary arteries. IMPRESSION: No evidence of pulmonary embolism. Patchy atelectasis at the lung bases.
[2017-12-09] MEDS ORDERED: ONDANSETRON 4 MG/2 ML VIAL IVP PRN (01:14)
[2017-12-09] MEDS ORDERED: MORPHINE SULFATE 4 MG/ML SYRINGE IV PRN (01:14)
[2017-12-09] MEDS ORDERED: ACETAMINOPHEN TAB 325 MG TAB PO PRN (01:14)
[2017-12-09] MEDS ORDERED: NALOXONE 0.4 MG/ML 1 ML VIAL IV PRN (01:14)
[2017-12-09] MEDS ORDERED: ENOXAPARIN 100 MG/ML SYRINGE SQ STA (01:14)
[2017-12-09] MEDS ORDERED: SODIUM CHLORIDE 0.9% 1,000 ML IV SCH (01:15)
[2017-12-09 02:24] VITALS: BMI 33.3
[2017-12-09] MEDS ORDERED: HYDROcodone/APAP 10-325MG 1 EACH TAB PO PRN (05:32)
[2017-12-09] MEDS ORDERED: MORPHINE SQ SCH (05:45)
--- NOTE | 2017-12-09 06:47 | P.HPIM ---
History of Present Illness H&P Date: 12/09/17 Chief Complaint: Right-sided chest pain 67-year-old male with past medical history of osteoarthritis. Patient presented to the hospital with 1 day history of right-sided chest pain described as intermittent sharp in nature 10 out of 10 in severity precipitated by movement and deep breaths lasting few seconds at a time. No radiation of the pain . Not associated with any coughing, fevers, chills, any trauma, denies any sick contacts or any recent traveling, denies any diagnoses of cancer. He reports that possibly similar event happened years ago where he was diagnosed with some acid reflux at that time so at home when he experienced the pain on Friday morning when he was going to the [place] it was associated with some sweating he tried some Tums however that did not help he tried to power through it for a day but because of the pain has persisted he decided to come to the hospital. Patient reports that he had some surgery done to his right hand 2 weeks ago where bone graft and pins were inserted, and the ER d-dimer was checked and was elevated for which CTA of the chest was performed that showed no PE. However due to persistence of the pain patient was admitted for observation and further management. Review of Systems Constitutional: Patient denies fever, denies chills, denies night sweating, denies significant weight changes Eyes: Patient denies visual changes, denies eye pain ENT: Patient denies ear pain, denies rhinorrhea, denies sore throat Cardiovascular: Patient denies exertional dyspnea, denies peripheral leg edema, denies orthopnea, denies paroxysmal nocturnal dyspnea Respiratory:Patient denies cough, denies wheezing, denies shortness of breath Gastrointestinal: Patient denies diarrhea, denies constipation, denies nausea , denies vomiting, denies abdominal pain Genitourinary: Patient denies dysuria, denies hematuria, denies changes in urinary habits, denies genital lesions Musculoskeletal: Patient denies muscle pain, chronic low back pain, currently patient has a pain pump intrathecally Psychiatric: Patient denies changes in mood or memory, denies suicidal ideation, denies anxiety Endocrine: Patient denies heat intolerance, denies cold intolerance, denies excessive thirst, denies polyuria Neurological: Patient denies focal neurologic deficits, denies weakness, denies numbness, denies tingling Hem/Lymphatic: Patient denies bleeding tendency, denies bruising, denies swollen lymph glands Allergic/Immun: Patient denies recent allergic reactions Skin: Patient denies rashes, denies pruritis, denies ulcers Past Medical History Past Medical History: Eye Disorder, Musculoskeletal Disorder, Osteoarthritis (OA ) Additional Past Medical History / Comment(s): degenerative arthritis of the spine, macular degeneration rt eye, PAIN CLINIC History of Any Multi-Drug Resistant Organisms: None Reported Past Surgical History: Back Surgery, Heart Catheterization, Hernia Repair, Joint Replacement, Orthopedic Surgery Additional Past Surgical History / Comment(s): back surgeries x4 with fusion of 5 disc, raimn. knee replacement, hemorrhoid, COLONOSCOPY, L hand tendon arthroscopy 06/03/2016, r hand surgery 07/2016, RT EYE injection 07/12/16 FOR MACULAR DEGENERATION. Intrathecal Pain Pump surgically implanted - 08-25-2017. RIGHT HAND SURGERY WITH PINS. right hand bone graft 11/24/17. Past Anesthesia/Blood Transfusion Reactions: No Reported Reaction Smoking Status: Former smoker - Past Family History Mother Family Medical History: No Reported History Father Family Medical History: Cancer Additional Family Medical History / Comment(s): PROSTATE CANCER Medications and Allergies Home Medications Medication Instructions Recorded Confirmed Type Ascorbic Acid [Vitamin C] 500 mg PO DAILY 09/12/15 12/09/17 History Cholecalciferol [Vitamin D3] 1,000 unit PO DAILY 09/12/15 12/09/17 History Vit A/Vit C/Vit E/Zinc/Copper 1 cap PO DAILY 09/12/15 12/09/17 History [ICAPS SOFTGEL] Morphine Pain Pump 0.597 pump SQ CONTINUOUS 11/13/17 12/09/17 History Hydrocodone/Acetaminophen [[place] 1 tab PO Q4H PRN 12/03/17 12/09/17 History 10-325] Allergies Allergy/AdvReac Type Severity Reaction Status Date / Time No Known Allergies Allergy Verified 12/09/17 00:13 Physical Exam Vitals: Vital Signs Temp Pulse Pulse Resp BP BP Pulse Ox 12/09/17 03:03 98.5 F 60 18 160/82 99 12/09/17 01:40 99.0 F 62 18 119/59 97 12/09/17 00:12 98.5 F 64 18 144/66 97 12/08/17 22:51 65 18 125/61 97 02/26/18 21:01 97.8 F 83 20 152/81 97 Intake and Output 12/08/17 12/08/17 12/09/17 14:59 22:59 06:59 Other: # Voids 1 Weight 102.512 kg 102.5 kg Patient Weight 12/09/17 06:59 Weight 102.5 kg Constitutional: No acute distress, conversant, pleasant Eyes: Anicteric sclerae, moist conjunctiva, no lid-lag Pupils equal round reactive to light ENMT: NC/AT Oropharynx clear, no erythema, exudates Neck: Supple, FROM, no masses, or JVD No carotid bruits No thyromegaly Lungs: Clear to auscultation Clear to percussion Normal respiratory effort, no accessory muscle use Cardiovascular: Heart regular in rate and rhythm, No murmurs, gallops, or rubs No peripheral edema Abdominal: Soft Nontender, no guarding, rebound or rigidity Abdomen moving with respiration Normoactive bowel sounds No hepatomegaly, No splenomegaly No palpable mass No abdominal wall hernia noted Skin: Normal temperature, tone, texture, turgor No induration No subcutaneous nodules No rash, lesions No ulcers Extremities: right arm with surgical dressing and splint due to recent surgeyr No digital cyanosis No clubbing Pedal pulses intact and symmetrical Radial pulses intact and symmetrical No calf tenderness Psychiatric: Alert and oriented to person, place and time Appropriate affect fair judgment Neuro Muscles Strength 5/5 in all 4 extremities (limited exam over right upper extremity , due to recent surgery Sensation to light touch grossly present throughout Cranial nerves II-XII grossly intact No focal sensory deficits Lymphatics: no palpable cervical or supraclavicular , or inguinal lymph nodes Results CBC & Chem 7: 12/08/17 21:25 12/08/17 21:25 Labs: Abnormal Lab Results - Last 24 Hours (Table) 12/08/17 12/08/17 12/08/17 Range/Units 21:25 21:25 21:25 Hgb 12.4 L (13.0-17.5) gm/dL D-Dimer 1.78 H (<0.60) mg/L FEU Glucose 117 H (74-99) mg/dL Thrombosis Risk Factor Assmnt - Choose All That Apply Each Risk Factor Represents 2 Points: Age 61-74 years Thrombosis Risk Factor Assessment Total Risk Factor Score: 2 Thrombosis Risk Factor Assessment Level: Low Risk Assessment and Plan (1) Pleuritic chest pain Narrative/Plan: This musculoskeletal in origin due to abnormal positioning after recent surgery in his right hand due to fear of pain. CT angiogram the chest showed no evidence of acute PE Patient declined the use of any patches I was suggesting lidocaine patch We'll consider warm compressors to see if it helps with the pain Continue with when necessary NSAIDs Check ambulatory oxygen saturation Respiratory spirometry to help with some atelectasis that was found on the CAT scan Current Visit: Yes Status: Acute Code(s): R07.81 - PLEURODYNIA SNOMED Code (s): 1689497 (2) Elevated d-dimer Narrative/Plan: this could be related to recent surgery CTA of the chest showed no evidence of acute PE. discontinue theraputic dose of lovenox EKG unremarkable no hypoxemia Current Visit: Yes Status: Acute Code(s): R79.89 - OTHER SPECIFIED ABNORMAL FINDINGS OF BLOOD CHEMISTRY SNOMED Code(s): 343971690 (3) Osteoarthritis Narrative/Plan: chronic back pain, patient has intrathecal pain pump , surgically implanted Current Visit: No Status: Chronic Code(s): M19.90 - UNSPECIFIED OSTEOARTHRITIS, UNSPECIFIED SITE SNOMED Code(s): 703550245 (4) Anemia Narrative/Plan: mild , asymptomatic, possibly related to blood loss from recent surgery 2 weeks ago denies any evidence of GI bleeding check FOBT, iron studies Current Visit: Yes Status: Acute Code(s): D64.9 - ANEMIA, UNSPECIFIED SNOMED Code(s): 351841192 (5) Elevated blood pressure reading Narrative/Plan: continue to monitor patient denies any diagnosis of Hypertension possibly related to anxiety of being hospitalized Current Visit: Yes Status: Acute Code(s): R03.0 - ELEVATED BLOOD-PRESSURE READING, W/O DIAGNOSIS OF HTN SNOMED Code(s): 61789857 (6) DVT prophylaxis Narrative/Plan: Lovenox. SC Current Visit: Yes Status: Acute Code(s): LWU8094 - SNOMED Code(s): 556571775 Plan: Surrogate decision-maker: Jaylene , patient CODE STATUS:full code DVT prophylaxis: Lovenox sc Discussed with: Patient, ER, RN Anticipated discharge: <[address]: home A total of 50 minutes were spent on the care of this complex patient more than 50% of the time was spent in counseling and care coordination.
[2017-12-09] MEDS ORDERED: IBUPROFEN 800 MG TAB PO PRN (07:04)
[2017-12-09 07:45] VITALS: BP 121/63; PULSE 51; RESP 16; TEMP 98.2
[2017-12-09] MEDS ORDERED: HEPARIN SODIUM,PORCINE 5,000 UNIT/ML 1 ML VIAL SQ SCH (08:00)
[2017-12-09] MEDS ORDERED: FAMOTIDINE 20 MG TAB PO SCH (09:00)
[2017-12-09] MEDS ORDERED: ENOXAPARIN 100 MG/ML SYRINGE SQ SCH (09:00)
[2017-12-09] MEDS ORDERED: VIT A,C & E-LUTEIN-MINERALS 1 EACH TAB PO SCH (09:00)
--- NOTE | 2017-12-09 09:30 | P.DS ---
Providers Date of admission: 12/09/17 01:17 Expected date of discharge: 12/09/17 Attending physician: Beena Mcahado MD Primary care physician: Rolo Sesay MD - Discharge Diagnosis(es) (1) Pleuritic chest pain Current Visit: Yes Status: Acute (2) Elevated d-dimer Current Visit: Yes Status: Acute (3) Elevated blood pressure reading Current Visit: Yes Status: Acute Hospital Course: Patient is a 67-year-old male with a recent right hand surgery done 2 weeks prior which involved a bone graft, pins, who presented to the ED with right- sided chest pain worse on deep breaths. Patient does report he has been sleeping in an awkward positions due to the right hand casting. Patient states that the right-sided chest pain is worsened with deep breaths, improved with more shallow breaths. Denies any associated shortness of breath beyond the difficulty breathing associated with pain on deep breaths. While in the ED, a d -dimer was done which was elevated however patient did have a recent surgery, started on enoxaparin in the ED. Patient underwent CT angiogram of the chest which showed no evidence of pulmonary embolism. The patient was then sent to the observation unit due to the pleuritic chest pain and elevated d-dimer. The ED also ordered bilateral lower extremity duplex and a VQ scan. Patient reports improved symptoms of his right sided pleuritic chest pain with the incentive spirometer. Instructed the patient to take Tylenol or Motrin alternating if needing medication for the pain, continued use of the incentive spirometer, warm compresses to the area. D-dimer is elevated secondary to his recent surgery, CT angiogram of the chest showed no evidence of pulmonary embolism. There is no role of doing a VQ scan in this setting, discontinued. Patient reports no new lower extremity swelling, no calf tenderness; no role of bilateral LE duplex in this setting, canceled. The patient did have an elevated blood pressure reading while in the ED however this was in the setting of having ongoing pleuritic pain, has since resolved. Patient discharged home. Patient Condition at Discharge: Good Plan - Discharge Summary Discharge Rx Participant: No New Discharge Prescriptions: No Action Vit A/Vit C/Vit E/Zinc/Copper [ICAPS SOFTGEL] 1 cap PO BID Cholecalciferol [Vitamin D3] 1,000 unit PO DAILY Ascorbic Acid [Vitamin C] 500 mg PO BID Morphine Pain Pump 0.597 pump SQ CONTINUOUS Hydrocodone/Acetaminophen [Marcus 10-325] 1 tab PO Q4H PRN PRN Reason: Pain Discharge Medication List Ascorbic Acid [Vitamin C] 500 mg PO BID 09/12/15 [History] Cholecalciferol [Vitamin D3] 1,000 unit PO DAILY 09/12/15 [History] Vit A/Vit C/Vit E/Zinc/Copper [ICAPS SOFTGEL] 1 cap PO BID 09/12/15 [History] Morphine Pain Pump 0.597 pump SQ CONTINUOUS 11/13/17 [History] Hydrocodone/Acetaminophen [Marcus 10-325] 1 tab PO Q4H PRN 12/03/17 [History] Follow up Appointment(s)/Referral(s): Rolo Sesay MD [Primary Care Provider] - 1-2 days Activity/Diet/Wound Care/Special Instructions: Activity as tolerated Discharge Disposition: HOME SELF-CARE
[2017-12-09 13:09] LABS: Iron Saturation 10.38 (15.00-50.00)
== END 2017-12-09 10:55 | disposition home or self-care (01) ==
LOC: EC 21:00 → 3OBS 12-09 01:17
PROVIDERS: ADMIT Internal Medicine; ATTEND Internal Medicine
DX: R07.81 Pleurodynia (principal); R79.89 Other specified abnormal findings of blood chemistry; R03.0 Elevated blood-pressure reading, without diagnosis of hypertension; R61 Generalized hyperhidrosis; J98.11 Atelectasis; G89.29 Other chronic pain; M54.9 Dorsalgia, unspecified; D64.9 Anemia, unspecified; Z98.890 Other specified postprocedural states; M19.90 Unspecified osteoarthritis, unspecified site; H35.30 Unspecified macular degeneration; M46.90 Unspecified inflammatory spondylopathy, site unspecified; Z96.89 Presence of other specified functional implants; Z86.718 Personal history of other venous thrombosis and embolism; Z98.1 Arthrodesis status; Z87.891 Personal history of nicotine dependence; Z80.42 Family history of malignant neoplasm of prostate
CPT/HCPCS: 36415; 71046; 71275; 80053; 82150; 82728; 83540; 83550; 83690; 84484; 85025; 85379; 93005; 96372; 96374; 99285

== ENCOUNTER → 2018-01-23 | Day surgery (SDC) | payer MEDICARE ==
[2018-01-19 15:41] VITALS: BMI 33.5
[~2018-01-23] MED LIST changes: +BUPIVACAINE (PF) 0.5% 30 ML VIAL SQ ONE; +DEXAMETHASONE SOD PHOSPHATE 10 MG/ML 1 ML VIAL IV ONE; -HYDROmorphone 0.5 MG/0.5 ML SYRINGE IVP PRN; -KETAMINE 10 MG/ML 20 ML VIAL ONE; -LACTATED RINGERS 1,000 ML IV ONE; +LIDOCAINE 1% 20 ML VIAL (10MG/ML) FOR IV START INTRADERMA ONE; -LIDOCAINE 1% 20 ML VIAL (10MG/ML) FOR IV START INTRADERMA PRN; -LIDOCAINE 1% INJ 10MG/ML (20 ML MDV) ONE; +LIDOCAINE 2% INJ 20 MG/ML SQ ONE; -MIDAZOLAM 2 MG/2 ML VIAL IV ONE; +MIDAZOLAM 2 MG/2 ML VIAL IV PRN; -Pre Op ABX Message 1 EACH MISC MISCELLANE ONE; -ROPIVACAINE 5 MG/ML 30 ML VIAL ONE; +ceFAZolin IN SWFI 2 GM/20 ML SYRINGE IVP ONE; +fentaNYL (PF) 50 MCG/ML 2 ML AMP IV PRN
[2018-01-23 11:36] VITALS: TEMP 98.8
[2018-01-23 14:44] VITALS: BP 152/92; PULSE 80; RESP 16
--- NOTE | 2018-01-23 14:55 | XR ---
Fluoroscopy INDICATION: Pain, pin removal FINDINGS: Fluoroscopy time: 4 seconds. Images obtained: 2. IMPRESSIONS: 1. Documentation of fluoroscopy.
--- NOTE | 2018-01-23 14:56 | FL ---
Fluoroscopy INDICATION: Pain FINDINGS: Fluoroscopy time: 4 seconds. Images obtained: 2. IMPRESSIONS: 1. Documentation of fluoroscopy.
--- NOTE | 2018-01-23 21:01 | OP ---
OPERATIVE REPORT DATE OF SERVICE: 01/23/2018. PREOPERATIVE DIAGNOSIS:: Status post midcarpal fusion right wrist with retained K-wires x4. POSTOPERATIVE DIAGNOSIS:: Status post midcarpal fusion right wrist with retained K-wires x4. OPERATION:: Removal of K-wires right wrist midcarpal fusion x4. ESTIMATED BLOOD LOSS:: SPECIMEN TAKEN:: INDICATIONS: A 67-year-old man had an excision of scaphoid with midcarpal fusion 8 weeks ago with apparent solid fusion and no other complications. The pins are irritating, but not infected and it is time for their removal. NARRATIVE:: A 67-year-old man was taken operative suite, given IV sedation and his right arm was prepped and draped in the usual manner. It was elevated, exsanguinated. Cuff was inflated to 250 mmHg. Using C-arm fluoroscopy, each of the 4 pins were identified and removed through small incisions. A final C-arm picture demonstrated complete removal of the hardware and an apparent stable, solid midcarpal fusion in good alignment. The tourniquet was released. His wounds were irrigated. Two of the wounds were small enough they not require any closure. A 3rd incision was approximately 1-2 cm in length. The wound was closed with 2 or 3 simple sutures of 5-0 nylon. Soft bulky dressing with a couple of ABD pads to create a soft cast was applied and he was taken to recovery room in satisfactory condition. Note that prior to wound closure, the incision sites were anesthetized with a combination of Xylocaine and Marcaine, both without epinephrine. Postoperatively, he will change his dressing in a couple days with routine wound cleansing. He will then proceed with use of a Velcro standard wrist splint with no strenuous activities until recheck in a couple of weeks. MMODL / IJN: [id number] /
== END ==
LOC: OR 10:42
PROVIDERS: ATTEND Orthopaedic Surgery Hand Surgery
DX: T84.84XA Pain due to internal orthopedic prosthetic devices, implants and grafts, initial encounter (principal); Z98.1 Arthrodesis status; M19.032 Primary osteoarthritis, left wrist; M19.031 Primary osteoarthritis, right wrist; H91.90 Unspecified hearing loss, unspecified ear; K21.9 Gastro-esophageal reflux disease without esophagitis; Z79.891 Long term (current) use of opiate analgesic; Z91.09 Other allergy status, other than to drugs and biological substances; Z87.891 Personal history of nicotine dependence
CPT/HCPCS: 73100; 20670; J2001; J2250; J1100; J3010; J2704; J0690

== ENCOUNTER → 2018-03-04 | Day surgery (SDC) | payer MEDICARE ==
[2018-03-04 14:53] VITALS: BP 152/82; PULSE 59; RESP 18
--- NOTE | 2018-03-04 15:17 | P.PCN ---
Date of Procedure: 03/04/18 Surgeon: Darrel Santos Description of Procedure: OPERATION: Intrathecal pain pump analysis, programming and reprogramming, and intrathecal pain pump refill. PREOPERATIVE DIAGNOSES: 1. near empty intrathecal pain pump time for refill. 2. 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 near empty intrathecal pain pump time for refill. 2. 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 CONDITION: Stable. Description of the procedure; Intrathecal pain pump analysed ,it showed patient currently had reservoir volume[ ] mL. The patient is receiving medication morphine 5 mg/ ml. Pain is well controlled , patient using medication for breakthrough pain [ ] orally . The location of the pump left lower abdomen Prepped with chlorhexidine x3 , then using 22-gauge needle Music[employer] kit advanced through the pump port, Total of and a 25 ml removed from the pump, the pump refills with the new medication total volume 40 ml . The concentration [ 5] mg /ml. The patient will continue to see the daily dose [ 0.9] mg/day and patient will follow up with the pain clinic in 3 months. This represents a 12% increase in his amount of medication. I discussed with him at length the risks and benefits of increasing his medication. He reports that he has seen a significant increase in his activity after having intrathecal pump placed and that it has substantially improved his quality of life.
== END | disposition home or self-care (01) ==
LOC: PNWHC3 13:40
PROVIDERS: ATTEND Pain Medicine Pain Medicine
DX: Z45.1 Encounter for adjustment and management of infusion pump (principal); M96.1 Postlaminectomy syndrome, not elsewhere classified
CPT/HCPCS: 62370

== ENCOUNTER → 2018-05-27 | Day surgery (SDC) | payer MEDICARE ==
[2018-05-26 15:56] VITALS: BMI 33.7
[2018-05-27 14:13] VITALS: BP 144/81; PULSE 63; RESP 18; TEMP 98
--- NOTE | 2018-05-27 15:12 | P.PCN ---
Date of Procedure: 05/27/18 Procedure(s) Performed: Surgeon: Darrel Santos Description of Procedure: OPERATION: Intrathecal pain pump analysis, programming and reprogramming, and intrathecal pain pump refill. PREOPERATIVE DIAGNOSES: 1. near empty intrathecal pain pump time for refill. 2. 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 near empty intrathecal pain pump time for refill. 2. 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 CONDITION: Stable. Description of the procedure; Intrathecal pain pump analysed ,it showed patient currently had reservoir volume[ 24.9 ] mL. The patient is receiving medication morphine 5 mg/ ml. Pain is well controlled , patient not using any medication for breakthrough pain The location of the pump left lower abdomen Prepped with chlorhexidine x3 , then using 22-gauge needle cookdinner kit advanced through the pump port, Total of and a 25 ml removed from the pump, the pump refills with the new medication total volume 40 ml . The concentration [ 5] mg /ml. The patient will continue to see the daily dose [ 0.9] mg/day and patient will follow up with the pain clinic in 3 months. He reports that he has seen a significant increase in his activity after having intrathecal pump placed and that it has substantially improved his quality of life.
== END | disposition home or self-care (01) ==
LOC: PNWHC3 13:47
PROVIDERS: ATTEND Specialist
DX: Z45.1 Encounter for adjustment and management of infusion pump (principal); M96.1 Postlaminectomy syndrome, not elsewhere classified
CPT/HCPCS: 62370

== ENCOUNTER → 2018-08-19 | Day surgery (SDC) | payer MEDICARE ==
[2018-08-14 14:48] VITALS: BMI 33.0
[2018-08-19 14:32] VITALS: BP 123/60; PULSE 95; RESP 16
--- NOTE | 2018-08-19 15:18 | P.PCN ---
Date of Procedure: 08/19/18 Preoperative Diagnosis: Failed back surgery syndrome Near empty intrathecal morphine pump Postoperative Diagnosis: Same as above Procedure(s) Performed: Intrathecal morphine pump refill and reprogramming Anesthesia: none Surgeon: Elizabeth Lerner Pathology: none sent Condition: stable Description of Procedure: This is a 68-year-old gentleman with history of failed back surgery syndrome with intrathecal morphine pump at a dose of 0.9 mg per day. He denies any new neurologic symptoms in the lower extremities, or any bowel or bladder dysfunction. His neuro exam of the lower extremities showed absent deep tendon reflexes bilaterally and symmetrically and decreased but symmetrical muscle strength to 4 out of 5 bilaterally and symmetrically. 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 The patient has only morphine in his pump solution. The pump location is in the left lower abdomen. I used 22-gauge Medtr[employer] needle to get physical the pump port and obtained a 24 MLS of residuals then I replaced them with 4 MLS of the new solution of morphine 5 mg per mL. I will increase his daily dose of morphine to 1 mg per day and I will give him a bolus of 0.1 mg over 30 minutes today. I think the patient may benefit from adding bupivacaine to the pump solution. I injected 40 MLS of the solution incrementally with frequent aspiration to avoid any subcu infiltration. Patient tolerated procedure well. He will be seen 3 months from now.
== END | disposition home or self-care (01) ==
LOC: PNWHC3 13:52
PROVIDERS: ATTEND Anesthesiology
DX: M96.1 Postlaminectomy syndrome, not elsewhere classified (principal); Z45.1 Encounter for adjustment and management of infusion pump
CPT/HCPCS: 62370

== ENCOUNTER → 2018-11-18 | Day surgery (SDC) | payer MEDICARE ==
[2018-11-12 15:44] VITALS: BMI 32.1
[2018-11-18 13:10] VITALS: BP 159/90; PULSE 54; RESP 16
--- NOTE | 2018-11-18 13:46 | P.PN ---
Subjective Progress Note Date: 11/18/18 This is a 68-year-old gentleman with history of failed back surgery syndrome. The patient's pain has been reasonably controlled with intrathecal morphine pump area and he denies any new paresthesia or weakness in the lower extremities. His intrathecal solution were changed today by adding bupivacaine 5 mg per 1 MLS to the morphine solution of 5 mg per 1 MLS. The pump refill will be done with reprogramming. Today, pt denies new-onset weakness, bowel/bladder incontinence, or any other signs or symptoms of cauda equina syndrome. There are no signs of acute intoxication, and no indications of medication diversion or overuse. In addition to above, 13-point review of systems is also negative for chest pain , shortness of breath, changes in vision, changes in hearing, new onset weakness , abdominal pain, diarrhea, extreme fatigue, malaise, fever, skin changes, homicidal or suicidal ideation, or bowel or bladder incontinence. Vital Signs: Reviewed in EMR Gen: AAOx3, NAD HEENT: PERRLA,hearing grossly normal Pulm: resp unlabored,CTA Heart:S1,S2, No Mur Neck: supple, trachea midline Neuro exam of the lower extremities: Normal muscle strength in the lower extremities. Absent left knee reflex and decreased right knee reflex. Normal left ankle reflex and absent right ankle reflex. Straight leg raising test: Negative bilaterally Colt's test: Range of motion of the lumbar spine: Decreased Facet loading test: Tenderness in the paravertebral musculature: Positive on the lumbar area Neuro: CN II-XII grossly intact, Imaging: Reviewed in EMR/chart Assessment: Failed back surgery syndrome Opioid dependence Intrathecal opioid infusion for pump Plan: 1. Explanation: Opioid and psychological risk scores were reviewed. Diagnoses , prognoses, and multiple treatment options including but not limited to physical therapy, interventional therapies, adjuvant medical therapies, narcotic medication therapies, and surgery were discussed with the patient and all questions were answered to the patient's satisfaction. 2. Opioid agreement: Signed with the patient and the patient is warned not to use opioids while driving or before driving and not to combine opioids with benzodiazepines or alcohol. 3. Counseling: The patient was counseled extensively on SMOKING CESSATION, BODY MASS INDEX, EXERCISE. Specifically, the patient was instructed regarding the importance of smoking cessation, obesity, and exercise in the context of both chronic pain and overall health. 4. Procedures: Pump refill and reprogramming 5. Consultations: None 6. Investigations: None 7. Medications: The patient has been off oral opioids 8. Disposition: Return to clinic in 12 weeks 9. Maps were reviewed and were appropriate. PQRS measures: 1-Patient's medications are documented in the chart. 2-Tobacco use is negative, counseling given 3-Patient has had a pneumococcal vaccine. 4-Advanced care planning discussed, patient unable to give 5-Opioid contract signed with the patient. 6-Pain positive, follow-up visit or procedure scheduled 7-Patient's blood pressure measured and documented higher than normal, the patient will follow up with his care physician. 8-Patient's weight was measured, and body mass index ABOVE the normal limits, and counseling was done. Patient instructed to follow up with PCP. 9-Patient WAS NOT identified as an unhealthy alcohol user. Controlled Substance Measures Is patient prescribed a controlled substance at discharge?: Yes When asked, does pt state using other controlled substances?: No If prescribed controlled substance>3 days was MAPS reviewed?: Yes If Rx opioid, was Start Talking consent form obtained?: Yes If opioid is for acute pain is fill amount 7 days or less?: No Was information provided regarding opioid addiction?: Yes Objective - Vital Signs Vital signs: Vital Signs Temp Pulse 54 L 11/18/18 13:03 Resp 16 11/18/18 13:03 BP 159/90 11/18/18 13:03 Pulse Ox 94 L 11/18/18 13:03
--- NOTE | 2018-11-18 13:49 | P.PCN ---
Date of Procedure: 11/18/18 Description of Procedure: Preoperative Diagnosis: Failed back surgery syndrome Near empty intrathecal morphine pump Postoperative Diagnosis: Failed back surgery syndrome Procedure(s) Performed: Intrathecal morphine pump refill and reprogramming Anesthesia: none Surgeon: Elizabeth Lerner Pathology: none sent Condition: stable Description of Procedure: The patient assumed the supine position. Skin was prepped with DuraPrep and draped in a sterile manner. A facemask and hat with a sterile gloves were used for complete sterilely for this procedure. The pump location is in the left lower abdomen. I used 22-gauge [facility] [employer] needle to get physical the pump port and obtained a 22 MLS of residuals then I replaced them with 40 MLS of the new solution of morphine 5 mg per mL and bupivacaine 5 mg per mL. I will continue his his daily dose of morphine of 1 mg per day . I injected 40 MLS of the solution incrementally with frequent aspiration to avoid any subcu infiltration. Patient tolerated procedure well. The pump was reprogrammed. He will be seen 3 months from now.
== END ==
LOC: PNWHC3 12:48
PROVIDERS: ATTEND Anesthesiology
DX: Z45.49 Encounter for adjustment and management of other implanted nervous system device (principal); M96.1 Postlaminectomy syndrome, not elsewhere classified; Z79.891 Long term (current) use of opiate analgesic
CPT/HCPCS: 62370

== ENCOUNTER → 2019-02-03 | Day surgery (SDC) | payer MEDICARE ==
[2019-02-03 13:32] VITALS: BP 166/81; PULSE 55; RESP 20
--- NOTE | 2019-02-03 13:52 | P.PCN ---
Date of Procedure: 02/03/19 Surgeon: Darrel Santos Description of Procedure: Procedure: Intrathecal pump refill with analysis and reprogramming Preoperative diagnosis: Postlaminectomy syndrome Postoperative diagnosis: Same Surgeon: Darrel Santos M.D. Anesthesia: Skin local Indication for procedure: This is a very pleasant 68-year-old gentleman with a history of postlaminectomy syndrome who presents today for refill of his intrathecal pump. Procedure in detail: After potential risks and benefits reviewed the patient, the patient signed informed consent. The area over the intrathecal pump was then prepped and draped in the usual sterile fashion. The pump was accessed using the Atterocor refill kit. Their refill protocol was followed. Contents of the pump were aspirated. The new solution was then verified in then injected through a bacteriostatic filter into the pump with aspiration occurring every 3- 5 mL to confirm intrathecal placement. The needle was then withdrawn once the entire volume was injected and a Band-Aid was applied. Amount of fluid removed: 25 mL Current medications solution: Morphine 5 mg per mL and bupivacaine 5 mg per mL Current medication dosage: Medication dosage was 1 mg per day of morphine and bupivacaine. I did increase this to 1.25 mg per day for both. Refill solution injected: Morphine 5 mg per mL and bupivacaine 5 mg per mL Elective replacement interval: 63 months Low reservoir refill date: 06/30/2019
== END ==
LOC: PNWHC3 13:07
PROVIDERS: ATTEND Pain Medicine Pain Medicine
DX: Z45.1 Encounter for adjustment and management of infusion pump (principal); M96.1 Postlaminectomy syndrome, not elsewhere classified
CPT/HCPCS: 62370

== ENCOUNTER → 2019-02-16 | Outpatient (CLI) | payer MEDICARE ==
[2019-02-16 12:15] VITALS: BP 153/79; PULSE 56; RESP 18
--- NOTE | 2019-02-16 13:02 | P.PN ---
Progress Note - Text Progress Note Date: 02/16/19 Zachary 68-year-old gentleman who presents today for follow-up. He reports right lower quadrant pain. He's began having this pain around the same time he had his pump refilled. His pump is in the left lower quadrant. He reports his nagging discomfort in the right lower quadrant. He denies any fevers or chills. He denies any erythema in the area. He denies any respiratory depression or any signs of inflammation near or around the pump. He's had a chronic lower extremity infection which appears to have been some type of fungal infection in the groin and his thighs which she's been treated for by his primary care physician. He currently have given him nystatin cream as well as Flagyl and ciprofloxacin. He reports his pain is about the same as sometimes worse in his back. He reports he believes his pump is working. He came in today due to his concern of the right lower quadrant pain. Physical exam Abdominal exam shows tenderness to palpation in the right lower quadrant, there is no rebound tenderness, there is no significant erythema. There is no tenderness palpation over the pump, there is no erythema, there is no fluctuance around her near the pump. Lower extremity: Strength is 5 out of 5 bilateral. Assessment and plan: Due to the persistent discomfort in the right lower quadrant and the fact that he has a pump placed in the abdomen I would like to rule out any infection and rule out any infectious processes that may be causing his pain. Patient is really concerned because pain is new and is persistent. I do believe a computed tomography scan with and without contrast would be required to rule out any si gnificant infection either intra-abdominal or in the fascia. Patient was instructed to give us a call when he has a CAT scan done and we will review it
== END | disposition home or self-care (01) ==
LOC: PNWHC3 11:51
PROVIDERS: ATTEND Specialist
DX: R10.31 Right lower quadrant pain (principal); Z96.89 Presence of other specified functional implants
CPT/HCPCS: 99211

== ENCOUNTER → 2019-02-18 | Outpatient (CLI) | payer MEDICARE ==
[2019-02-18 17:07] LABS: Blood Urea Nitrogen 12 mg/dL (9-20)
--- NOTE | 2019-02-18 22:13 | CT ---
EXAMINATION TYPE: CT abdomen wo/w con DATE OF EXAM: 02/18/2019 COMPARISON: None HISTORY: Right sided abdominal pain x2 weeks. CT DLP: 2572.3 mGycm, Automated Exposure Control for Dose Reduction was Utilized. CONTRAST: CT scan of the abdomen and pelvis is performed with oral and without and with IV Contrast, patient in jected with 100ml mL of Isovue 300. FINDINGS: LUNG BASES: There is some scattered bibasilar linear scarring and/or atelectasis. Some coronary arter y calcification is present which is noted marker for underlying coronary artery disease. LIVER/GB: Subcentimeter hypodense lesion anterior left hepatic lobe axial image 32 is too small to fu rther characterize but presumed benign. PANCREAS: No significant abnormality is seen. SPLEEN: No significant abnormality is seen. ADRENALS: No significant abnormality is seen. KIDNEYS: No renal calculi seen on noncontrast CT. There is some cortical thinning in both kidneys. T here is symmetric cortical medullary uptake and excretion without hydronephrosis seen bilaterally. BOWEL: Oral contrast only reaches distal jejunal loops in the left abdomen. There is however no suspi cious small or large bowel dilatation. LYMPH NODES: No greater than 1cm abdominal lymph nodes are appreciated. OSSEOUS STRUCTURES: Extensive surgery in the lumbar spine with multilevel laminectomy defects and spi nous process resection. There is artificial disc material at L1-L2, L2-L3, L3-L4, and L4-L5 levels. T here is advanced disc space narrowing L5-S1 level. There is moderate narrowing with some anterior niya dging osteophyte at T12-L1 level. Exaggerated kyphosis is noted at this level. OTHER: Stimulator device is seen in the deep subcutaneous tissue of the left mid abdomen. IMPRESSION: No significant finding is seen to account for patient's clinical symptoms of right-side d abdominal pain.
== END | disposition home or self-care (01) ==
LOC: RADCTMAIN 16:23
PROVIDERS: ATTEND Hospitalist
DX: R10.31 Right lower quadrant pain (principal)
CPT/HCPCS: 82565; 84520; 74170; 36415; Q9967

== ENCOUNTER → 2019-03-04 | Outpatient (CLI) | payer MEDICARE ==
[2019-03-04 12:42] VITALS: BP 149/78; PULSE 60; RESP 16
--- NOTE | 2019-03-10 07:31 | P.PN ---
Progress Note - Text Progress Note Date: 03/04/19 Zachary 68-year-old gentleman, with a history of postlaminectomy pain syndrome, we ordered a computed tomography scan of the abdomen with and without contrast, because patient developed abdominal pain(right side ) after we filled out intrathecal pain pump, the pain pump is located on the left lower quadrant, and patient came for follow-up visit to discuss the results of the computed tomography scan of the abdomen, the computed tomography scan dated 02/18 2019 was negative for any abnormalities, and patient reported that his pain improved , he denies any symptoms, he reported that he feels great he has no motor or sensory deficit. He denies any fevers or chills. He denies any erythema in the area. He denies any respiratory depression or any signs of inflammation near or around the pump. Physical exam Abdominal exam shows tenderness to palpation in the right lower quadrant, there is no rebound tenderness, there is no significant erythema. There is no tenderness palpation over the pump, there is no erythema, there is no fluctuance around her near the pump. Lower extremity: Strength is 5 out of 5 bilateral. Assessment and plan: Post laminectomy pain syndrome, she developed right lower quadrant abdominal pain after intrathecal pain pump refill ( the Pump is located on the left side lower quadrant abdomem ) Computed tomography scan of the abdomen negative for any abnormalities, patient reported that his pain improved he feels very well ,and he reports his pain improved, he denies any nausea or vomiting, and he had no focal neurological deficit. Patient will follow with the pain clinic on his regular pump refill date
== END ==
LOC: PNWHC3 12:01
PROVIDERS: ATTEND Specialist
DX: M96.1 Postlaminectomy syndrome, not elsewhere classified (principal); R10.31 Right lower quadrant pain; Z45.1 Encounter for adjustment and management of infusion pump
CPT/HCPCS: 99211

== ENCOUNTER 2019-04-18 13:49 | Emergency (ER) | payer MEDICARE ==
[2019-04-18 14:00] VITALS: BP 134/81; PULSE 60; RESP 18; TEMP 98.7
--- NOTE | 2019-04-18 14:28 | ED ---
Extremity Problem HPI - General Chief complaint: Extremity Problem,Nontraumatic Stated complaint: Swollen leg Time Seen by Provider: 04/18/19 14:15 Source: patient, RN notes reviewed Mode of arrival: ambulatory Limitations: no limitations - History of Present Illness Initial comments: 68-year-old male presents emergency Department with chief complaint of left leg swelling. Patient states that he fell a few days ago states that he a prescription his knee but that healed over. Patient states that he's noticed pain diffusely in his calf, pain with walking. Denies any bony pain states he has no knee pain does have history of knee replacement to his left leg. Patient states that he has no history of DVT. Patient denies any fevers or chills no re dness to leg. - Related Data Home Medications Medication Instructions Recorded Confirmed Ascorbic Acid [Vitamin C] 500 mg PO DAILY 09/12/15 03/04/19 Cholecalciferol [Vitamin D3] 1,000 unit PO DAILY 09/12/15 03/04/19 Vit A/Vit C/Vit E/Zinc/Copper 1 cap PO BID 09/12/15 03/04/19 [ICAPS SOFTGEL] Morphine Pain Pump 0.597 pump SQ CONTINUOUS 11/13/17 03/04/19 Ibuprofen [Motrin] 400 mg PO Q6HR PRN 08/14/18 03/04/19 Allergies Allergy/AdvReac Type Severity Reaction Status Date / Time No Known Allergies Allergy Verified 04/18/19 13:58 Review of Systems ROS Statement: Those systems with pertinent positive or pertinent negative responses have been documented in the HPI. ROS Other: All systems not noted in ROS Statement are negative. Past Medical History Past Medical History: Eye Disorder, Hearing Disorder / Deafness, Musculoskeletal Disorder, Osteoarthritis (OA) Additional Past Medical History / Comment(s): Degenerative arthritis of the spine, chronic BACK PAIN, macular degeneration ramin. eyes -(wet right eye,dry left eye) Intrathecal pain pump, Bilateral hearing aids History of Any Multi-Drug Resistant Organisms: None Reported Past Surgical History: Back Surgery, Heart Catheterization, Hernia Repair, Joint Replacement, Orthopedic Surgery Additional Past Surgical History / Comment(s): Back surgeries x4 with fusion of 5 discs, bilateral knee replacements, hemorrhoidectomy, COLONOSCOPY, ramin. hand tendon arthroscopy, right eye injection FOR MACULAR DEGENERATION. Intrathecal Pain Pump surgically implanted - 08-25-2017. RIGHT HAND SURGERY WITH PINS, later removed. Right hand bone graft. Past Anesthesia/Blood Transfusion Reactions: No Reported Reaction Past Psychological History: No Psychological Hx Reported Smoking Status: Former smoker Past Alcohol Use History: None Reported, Rare Past Drug Use History: None Reported - Past Family History Mother Family Medical History: No Reported History Father Family Medical History: Cancer Additional Family Medical History / Comment(s): PROSTATE CANCER General Exam Limitations: no limitations General appearance: alert, in no apparent distress Head exam: Present: atraumatic, normocephalic, normal inspection Eye exam: Present: normal appearance, PERRL, EOMI. Absent: scleral icterus, conjunctival injection, periorbital swelling Respiratory exam: Present: normal lung sounds bilaterally. Absent: respiratory distress, wheezes, rales, rhonchi, stridor Cardiovascular Exam: Present: regular rate, normal rhythm, normal heart sounds. Absent: systolic murmur, diastolic murmur, rubs, gallop, clicks GI/Abdominal exam: Present: soft, normal bowel sounds. Absent: distended, tenderness, guarding, rebound, rigid Extremities exam: Present: other (Left lower extremity diffuse swelling noted, pedal pulses equal bilaterally there is tenderness the left calf full range of motion left ankle left knee and left hip) Back exam: Present: normal inspection, full ROM. Absent: tenderness Neurological exam: Present: alert, oriented X3, CN II-XII intact, reflexes normal. Absent: motor sensory deficit Skin exam: Present: warm, dry, intact, normal color. Absent: rash Course Vital Signs 04/18/19 13:56 Temperature 98.7 F Pulse Rate 60 Respiratory 18 Rate Blood Pressure 134/81 O2 Sat by Pulse 98 Oximetry Medical Decision Making - Medical Decision Making 68-year-old male presents emergency Department chief complaint of left leg pain and swelling , ultrasound was obtained negative for acute DVT there is evidence of popliteal cyst and chronic hematoma. Patient will follow-up with Dr. Armando is orthopedic physician and primary care physician. Disposition Clinical Impression: Hematoma of left lower extremity, Popliteal cyst Disposition: HOME SELF-CARE Condition: Stable Instructions (If sedation given, give patient instructions): Hematoma (ED), Bakers Cyst (ED) Additional Instructions: Please return to the Emergency Department if symptoms worsen or any other concerns. Is patient prescribed a controlled substance at d/c from ED?: No Referrals: Rolo Sesay MD [Primary Care Provider] - 1-2 days Time of Disposition: 15:33
--- NOTE | 2019-04-18 15:13 | US ---
EXAMINATION TYPE: US venous doppler duplex LE LT DATE OF EXAM: 04/18/2019 2:56 PM COMPARISON: NONE CLINICAL HISTORY: Pain. Pt states left leg pain and swelling x 1 week s/p fall / no known prior DVT SIDE PERFORMED: Left TECHNIQUE: The lower extremity deep venous system is examined utilizing real time linear array sonog shannon with graded compression, doppler sonography and color-flow sonography. VESSELS IMAGED: External Iliac Vein (EIV) Common Femoral Vein Deep Femoral Vein Greater Saphenous Vein * Femoral Vein Popliteal Vein Small Saphenous Vein * Proximal Calf Veins (* superficial vessels) Left Leg: Negative for DVT, Complex Ventura's cyst within left pop fossa= 7.3 x 2.6 x 5.9 cm/ Non-vasc ular, complex area left medial calf in area of pt's pain= 8.2 x 2.1 x 4.0 cm IMPRESSION: No evidence of deep venous thrombosis in the left leg. Large complex popliteal cyst. Ther e is also a complex calf mass that could be chronic hematoma.
== END 2019-04-18 15:59 | disposition home or self-care (01) ==
LOC: EC 13:49
DX: S80.12XA Contusion of left lower leg, initial encounter (principal); M71.22 Synovial cyst of popliteal space [Baker], left knee; M19.90 Unspecified osteoarthritis, unspecified site; H91.93 Unspecified hearing loss, bilateral; Z87.891 Personal history of nicotine dependence; Z79.891 Long term (current) use of opiate analgesic; Z96.653 Presence of artificial knee joint, bilateral; Z97.4 Presence of external hearing-aid; Z98.1 Arthrodesis status; Z96.9 Presence of functional implant, unspecified; W19.XXXA Unspecified fall, initial encounter
CPT/HCPCS: 99283

== ENCOUNTER → 2019-04-28 | Day surgery (SDC) | payer MEDICARE ==
[2019-04-28 13:50] VITALS: BP 167/76; PULSE 54; RESP 18
--- NOTE | 2019-04-28 16:48 | P.PCN ---
Date of Procedure: 04/28/19 Procedure(s) Performed: OPERATION: Intrathecal pain pump analysis, programming and reprogramming, and intrathecal pain pump refill. PREOPERATIVE DIAGNOSES: 1. near empty intrathecal pain pump time for refill. 2. 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 near empty intrathecal pain pump time for refill. 2. 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 CONDITION: Stable. Description of the procedure; Intrathecal pain pump analysed ,it showed patient currently had reservoir volume[ 19 ] mL. The patient is receiving medication morphine 5 mg/ ml. and Bupivacaine 5 mg per mL Pain is well controlled , patient not using any medication for breakthrough pain The location of the pump left lower abdomen Prepped with chlorhexidine x3 , then using 22-gauge needle [employer] kit advanced through the pump port, Total of and a 20 ml removed from the pump, the pump refills with the new medication total volume 40 ml . The concentration morphine sulfate preservative-free [ 5] mg /ml. Bupivacaine 5 mg per mL The patient will continue to see the daily dose [ 1.25 ] mg/day and bupivacaine 1.25 mg per day and patient will follow up with the pain clinic in 3 months. He reports that he has seen a significant increase in his activity after having intrathecal pump placed and that it has substantially improved his quality of life Patient denies any side effect of the medication , he denies any excessive drowsiness or sleepiness and he reports the intrathecal treatment helping him to do activities of daily livings.
== END ==
LOC: PNWHC3 13:27
PROVIDERS: ATTEND Specialist
DX: Z45.1 Encounter for adjustment and management of infusion pump (principal); M96.1 Postlaminectomy syndrome, not elsewhere classified; Z79.891 Long term (current) use of opiate analgesic
CPT/HCPCS: 62370

== ENCOUNTER → 2019-07-21 | Day surgery (SDC) | payer MEDICARE ==
--- NOTE | 2019-07-22 14:45 | P.PCN ---
Date of Procedure: 07/21/19 Procedure(s) Performed: OPERATION: Intrathecal pain pump analysis, programming and reprogramming, and intrathecal pain pump refill. PREOPERATIVE DIAGNOSES: 1. near empty intrathecal pain pump time for refill. 2. 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 near empty intrathecal pain pump time for refill. 2. 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 Description of the procedure; Intrathecal pain pump analysed ,it showed patient currently had reservoir volume[ 19 ] mL. The patient is receiving medication morphine 5 mg/ ml. and Bupivacaine 5 mg per mL Pain is well controlled , patient not using any medication for breakthrough pain The location of the pump left lower abdomen Prepped with chlorhexidine x3 , then using 22-gauge needle [facility] kit advanced through the pump port, Total of 19 ml removed from the pump, the pump refills with the new medication total volume 40 ml . The concentration morphine sulfate preservative-free [ 5] mg /ml. Bupivacaine 5 mg per mL The patient will continue to see the daily dose [ 1.25 ] mg/day and bupivacaine 1.25 mg per day and patient will follow up with the pain clinic in 3 months. He reports that he has seen a significant increase in his activity after having intrathecal pump placed and that it has substantially improved his quality of life Patient denies any side effect of the medication , he denies any excessive drowsiness or sleepiness and he reports the intrathecal treatment helping him to do activities of daily living. Of note, the patient has lateral hip pain, and was evaluated by Dr. Caballero, and was informed that the pain is likely coming from his low back, he requests a computed tomography scan of the lumbar spine to be performed. I have ordered this today.
== END ==
LOC: PNWHC3 13:09
PROVIDERS: ATTEND Anesthesiology
DX: M96.1 Postlaminectomy syndrome, not elsewhere classified (principal); Z45.1 Encounter for adjustment and management of infusion pump; Z79.891 Long term (current) use of opiate analgesic
CPT/HCPCS: 62370

== ENCOUNTER → 2019-08-05 | Outpatient (CLI) | payer MEDICARE ==
--- NOTE | 2019-08-05 10:18 | CT ---
EXAMINATION TYPE: CT lumbar spine w con DATE OF EXAM: 08/05/2019 COMPARISON: MRI HISTORY: Spondylosis without myelopathy or radiculopathy, back pain CT DLP: 2201 mGycm CONTRAST: CT scan of the lumbar is performed with IV Contrast, patient injected with 100 mL of Isovue 300. TECHNIQUE: CT of the lumbar spine is performed on a spiral scan at 3 mm thick sections. Reconstructed images are performed in the coronal and sagittal planes. FINDINGS: T12-L1: Degenerative disc changes are present. The posterior wall displacement is evident. No spinal canal stenosis or neural foraminal stenosis present. Mild posterior lateral right thecal sac compress ion is present. L1-L2: Disc spacers present. Laminectomy has been performed. No spinal canal stenosis or neural angelique inal stenosis present. L2-L3: Disc spacers present. There is narrowing of the disc height. No posterior wall displacement is evident. No spinal canal stenosis present. Some mild left foraminal narrowing may be present. L3-L4: Disc spacers present. No focal disc herniation is evident. As loss of disc height. Facet degen erative changes are present. No spinal canal stenosis present. Neural foramen are patent. L4-L5: Disc spacers present. There is narrowing of the disc height. No spinal canal stenosis is prese nt. Mild bilateral foraminal narrowing is present. L5-S1: No focal disc herniation or significant disc bulge is evident. There is loss of disc height. M ild vacuum disc phenomenon is present. Spondylosis is present. Laminectomies been performed. There is kyphosis at the thoracolumbar junction. Sacroiliac joint vacuum phenomenon is present. Small pseudomeningocele may be present posterior to the L4 level measuring approximately 1.3 cm. This may be smaller than the comparison MRI. IMPRESSION: 1. Multilevel postsurgical changes including disc spacers at L1-2 through L4-5 laminectomy cell 1 thr ough L5. 2. Mild foraminal narrowing from facet hypertrophy discussed above. 3. Pseudomeningocele posterior to the L4 level. This appears to be slightly smaller than the comparis on MRI 2016. 4. Significant changes from the MRI are not evident.
== END | disposition home or self-care (01) ==
LOC: RADCTMAIN 08:07
PROVIDERS: ATTEND Anesthesiology
DX: M48.061 Spinal stenosis, lumbar region without neurogenic claudication (principal); G96.19 Other disorders of meninges, not elsewhere classified; Z98.890 Other specified postprocedural states
CPT/HCPCS: 82565; 84520; 72132; 36415; Q9967

== ENCOUNTER → 2019-09-29 | Day surgery (SDC) | payer MEDICARE ==
[2019-09-29 11:45] VITALS: BP 148/87; PULSE 56; RESP 16
--- NOTE | 2019-09-30 14:32 | P.PCN ---
Date of Procedure: 09/29/19 Procedure(s) Performed: OPERATION: Intrathecal pain pump analysis, programming and reprogramming, and intrathecal pain pump refill. PREOPERATIVE DIAGNOSES: 1. near empty intrathecal pain pump time for refill. 2. 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 near empty intrathecal pain pump time for refill. 2. 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 CONDITION: Stable. Description of the procedure; Intrathecal pain pump analysed ,it showed patient currently had reservoir volume[ 22.5 ] mL. The patient is receiving medication morphine 5 mg/ ml. and Bupivacaine 5 mg per mL Pain is well controlled , patient not using any medication for breakthrough pain The location of the pump left lower abdomen Prepped with chlorhexidine x3 , then using 22-gauge needle [employer] kit advanced through the pump port, Total of and a 23 ml removed from the pump, the pump refills with the new medication total volume 40 ml . The concentration morphine sulfate preservative-free [ 5] mg /ml. Bupivacaine 5 mg per mL The patient will continue to see the daily dose [ 1.25 ] mg/day and bupivacaine 1.25 mg per day and patient will follow up with the pain clinic in 3 months. He reports that he has seen a significant increase in his activity after having intrathecal pump placed and that it has substantially improved his quality of life Patient denies any side effect of the medication , he denies any excessive drowsiness or sleepiness and he reports the intrathecal treatment helping him to do activities of daily livings. - PQRS measures = - Patient's medications are documented in the chart. -Tobacco use is negative and counseling.Given. -Patient's has received pneumococcal vaccine. -Advanced care planning discussed, patient not eligible. -Opiate contract signed. -Pain positive and follow-up visit/procedure is scheduled. -Patient's blood pressure measured [ 148/87 ] , and documented in the record ,and patient will follow up with the primary care. -Patient's weight was measured and body mass index above the normal limits and counseling was done. and patient instructed to follow-up with the primary care physician. -Patient was not identified as an unhealthy alcohol user
== END ==
LOC: PNWHC3 11:26
PROVIDERS: ATTEND Specialist
DX: Z45.1 Encounter for adjustment and management of infusion pump (principal); M96.1 Postlaminectomy syndrome, not elsewhere classified
CPT/HCPCS: 62370; 99211

== ENCOUNTER → 2019-12-22 | Day surgery (SDC) | payer MEDICARE ==
[2019-12-22 13:18] VITALS: BP 137/70; PULSE 70; RESP 18; TEMP 98.6
--- NOTE | 2019-12-22 15:21 | P.PCN ---
Date of Procedure: 12/22/19 Procedure(s) Performed: OPERATION: Intrathecal pain pump analysis, programming and reprogramming, and intrathecal pain pump refill. PREOPERATIVE DIAGNOSES: 1. near empty intrathecal pain pump time for refill. 2. 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 near empty intrathecal pain pump time for refill. 2. 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 CONDITION: Stable. Description of the procedure; Intrathecal pain pump analysed ,it showed patient currently had reservoir volume[ 22.5 ] mL. The patient is receiving medication morphine 5 mg/ ml. and Bupivacaine 5 mg per mL Pain is well controlled , patient not using any medication for breakthrough pain The location of the pump left lower abdomen Prepped with chlorhexidine x3 , then using 22-gauge needle [employer] kit advanced through the pump port, Total of 20 ml removed from the pump, the pump refills with the new medication total volume 40 ml . The concentration morphine sulfate preservative-free [ 5] mg /ml. Bupivacaine 5 mg per mL The patient will continue to see the daily dose [ 1.25 ] mg/day and bupivacaine 1.25 mg per day and patient will follow up with the pain clinic in 3 months. He reports that he has seen a significant increase in his activity after having intrathecal pump placed and that it has substantially improved his quality of life Patient denies any side effect of the medication , he denies any excessive drowsiness or sleepiness and he reports the intrathecal treatment helping him to do activities of daily livings. - PQRS measures = - Patient's medications are documented in the chart. -Tobacco use is negative . -Patient's has received pneumococcal vaccine. -Advanced care planning discussed, patient not eligible. -Opiate contract signed. -Pain positive and follow-up visit/procedure is scheduled. -Patient's blood pressure measured [ 131/70 ] , and documented in the record ,and patient will follow up with the primary care. -Patient's weight was measured and body mass index above the normal limits and counseling was done. and patient instructed to follow-up with the primary care physician. -Patient was not identified as an unhealthy alcohol user
== END ==
LOC: PNWHC3 11:41
PROVIDERS: ATTEND Specialist
DX: Z45.1 Encounter for adjustment and management of infusion pump (principal); M96.1 Postlaminectomy syndrome, not elsewhere classified; Z79.891 Long term (current) use of opiate analgesic
CPT/HCPCS: 62370

== ENCOUNTER → 2020-03-09 | Day surgery (SDC) | payer MEDICARE ==
--- NOTE | 2020-03-09 08:18 | P.PCN ---
Date of Procedure: 03/09/20 Procedure(s) Performed: OPERATION: Intrathecal pain pump analysis, programming and reprogramming, and intrathecal pain pump refill. PREOPERATIVE DIAGNOSES: 1. near empty intrathecal pain pump time for refill. 2. 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 near empty intrathecal pain pump time for refill. 2. 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 CONDITION: Stable. Description of the procedure; Intrathecal pain pump analysed ,it showed patient currently had reservoir volume[ 20.6 ] mL. The patient is receiving medication morphine 5 mg/ ml. and Bupivacaine 5 mg per mL Pain is well controlled , patient not using any medication for breakthrough pain The location of the pump left lower abdomen Prepped with chlorhexidine x3 , then using 22-gauge needle [employer] kit advanced through the pump port, Total of 21 ml removed from the pump, the pump refills with the new medication total volume 40 ml . The concentration morphine sulfate preservative-free [ 5] mg /ml. Bupivacaine 5 mg per mL The patient will continue to see the daily dose [ 1.25 ] mg/day and bupivacaine 1.25 mg per day and patient will follow up with the pain clinic in 3 months. He reports that he has seen a significant increase in his activity after having intrathecal pump placed and that it has substantially improved his quality of life Patient denies any side effect of the medication , he denies any excessive drowsiness or sleepiness and he reports the intrathecal treatment helping him to do activities of daily livings. - PQRS measures = - Patient's medications are documented in the chart. -Tobacco use is negative . -Patient's has received pneumococcal vaccine. -Advanced care planning discussed, patient not eligible. -Opiate contract signed. -Pain positive and follow-up visit/procedure is scheduled. -Patient's blood pressure measured [ 160/82 ] , and documented in the record ,and patient will follow up with the primary care. -Patient's weight was measured and body mass index above the normal limits and counseling was done. and patient instructed to follow-up with the primary care physician. -Patient was not identified as an unhealthy alcohol user
[2020-03-09 08:49] VITALS: BP 160/82; PULSE 52; RESP 16; TEMP 98
== END ==
LOC: PNWHC3 07:18
PROVIDERS: ATTEND Anesthesiology
DX: Z45.1 Encounter for adjustment and management of infusion pump (principal); M96.1 Postlaminectomy syndrome, not elsewhere classified; Z79.891 Long term (current) use of opiate analgesic
CPT/HCPCS: 62370

== ENCOUNTER → 2020-05-24 | Day surgery (SDC) | payer MEDICARE ==
[2020-05-24 12:11] VITALS: BP 159/71; PULSE 48; RESP 18; TEMP 98.3
--- NOTE | 2020-05-24 12:40 | P.PCN ---
Date of Procedure: 05/24/20 Procedure(s) Performed: OPERATION: Intrathecal pain pump analysis, programming and reprogramming, and intrathecal pain pump refill. PREOPERATIVE DIAGNOSES: 1. near empty intrathecal pain pump time for refill. 2. 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 near empty intrathecal pain pump time for refill. 2. 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 CONDITION: Stable. Description of the procedure; Intrathecal pain pump analysed ,it showed patient currently had reservoir volume[ 21 ] mL. The patient is receiving medication morphine 5 mg/ ml. and Bupivacaine 5 mg per mL Pain is well controlled , patient not using any medication for breakthrough pain The location of the pump left lower abdomen Prepped with chlorhexidine x3 , then using 22-gauge needle [employer] kit advanced through the pump port, Total of 20 ml removed from the pump, the pump refills with the new medication total volume 40 ml . The concentration morphine sulfate preservative-free [ 5] mg /ml. Bupivacaine 5 mg per mL The patient will continue to see the daily dose [ 1.25 ] mg/day and bupivacaine 1.25 mg per day and patient will follow up with the pain clinic in 3 months. He reports that he has seen a significant increase in his activity after having intrathecal pump placed and that it has substantially improved his quality of life Patient denies any side effect of the medication , he denies any excessive drowsiness or sleepiness and he reports the intrathecal treatment helping him to do activities of daily livings. - PQRS measures = - Patient's medications are documented in the chart. -Tobacco use is negative . -Patient's has received pneumococcal vaccine. -Advanced care planning discussed, patient not eligible. -Opiate contract signed. -Pain positive and follow-up visit/procedure is scheduled. -Patient's blood pressure measured 159/71 , and documented in the record ,and patient will follow up with the primary care. -Patient's weight was measured and body mass index above the normal limits and counseling was done. and patient instructed to follow-up with the primary care physician. -Patient was not identified as an unhealthy alcohol user
== END ==
LOC: PNWHC3 11:52
PROVIDERS: ATTEND Specialist
DX: Z45.1 Encounter for adjustment and management of infusion pump (principal); M96.1 Postlaminectomy syndrome, not elsewhere classified; Z79.891 Long term (current) use of opiate analgesic
CPT/HCPCS: 62370

== ENCOUNTER → 2020-08-16 | Day surgery (SDC) | payer MEDICARE ==
[2020-08-16 12:18] VITALS: BP 129/75; PULSE 52; RESP 18; TEMP 98.3
--- NOTE | 2020-08-16 12:40 | P.PCN ---
Date of Procedure: 08/16/20 Surgeon: Elizabeth Lerner Pathology: none sent Condition: stable Description of Procedure: OPERATION: Intrathecal pain pump analysis, programming and reprogramming, and intrathecal pain pump refill. PREOPERATIVE DIAGNOSES: 1. near empty intrathecal pain pump time for refill. 2. 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 opioid tolerance 2. failed back surgery syndrome lumbar area ANESTHESIA: None. CONDITION: Stable. Description of the procedure; Intrathecal pain pump analyzed ,it showed patient currently had reservoir volume[ 40 ] mL. The patient is receiving medication morphine 5 mg/ ml. and Bupivacaine 5 mg per mL Pain is well controlled , patient not using any medication for breakthrough pain The location of the pump left lower abdomen Prepped with chlorhexidine x3 , then using 22-gauge needle [employer] needle advanced through the pump port, Total of 20 mls removed from the pump, the pump was refilled with the new medication total volume 40 ml . The morphine sulfate preservative-free concentration is [ 5] mg /ml. Bupivacaine 5 mg per mL The patient will continue to use the daily dose [ 1.25 ] mg/day and bupivacaine 1.25 mg per day .patient will follow up with the pain clinic in 3 months. He reports that he has seen a significant increase in his activity after murphy ving intrathecal pump placed and that it has substantially improved his quality of life Patient denies any side effect of the medication , he denies any excessive drowsiness or sleepiness and he reports that the intrathecal treatment is helping him do his daily activities.
== END ==
LOC: PNWHC3 11:58
PROVIDERS: ATTEND Anesthesiology
DX: Z45.1 Encounter for adjustment and management of infusion pump (principal); Z79.891 Long term (current) use of opiate analgesic; M96.1 Postlaminectomy syndrome, not elsewhere classified
CPT/HCPCS: 62370

== ENCOUNTER → 2020-11-08 | Day surgery (SDC) | payer MEDICARE ==
[~2020-11-08] MED LIST changes: -BUPIVACAINE (PF) 0.5% 30 ML VIAL SQ ONE; +BUPIVACAINE UP TO 8 MG/ML, 31-60 ML SYRINGE MC ONE; -DEXAMETHASONE SOD PHOSPHATE 10 MG/ML 1 ML VIAL IV ONE; -LACTATED RINGERS 1,000 ML IV SCH; -LIDOCAINE 1% 20 ML VIAL (10MG/ML) FOR IV START INTRADERMA ONE; -LIDOCAINE 2% INJ 20 MG/ML SQ ONE; -MIDAZOLAM 2 MG/2 ML VIAL IV PRN; -MIDAZOLAM 2 MG/2 ML VIAL ONE; +MORPHINE FOR ANAZAO - PER 10 MG MISCELLANE ONE; -ONDANSETRON 4 MG/2 ML VIAL IVP ONE; -PROPOFOL 10 MG/ML 20 ML VIAL IV ONE; -ceFAZolin IN SWFI 2 GM/20 ML SYRINGE IVP ONE; -fentaNYL (PF) 50 MCG/ML 2 ML AMP IV PRN; -fentaNYL (PF) 50 MCG/ML 2 ML AMP ONE
[2020-11-08 12:13] VITALS: BP 149/73; PULSE 54; RESP 18; TEMP 98.7
--- NOTE | 2020-11-08 12:39 | P.PCN ---
Date of Procedure: 11/08/20 Anesthesia: none Pathology: none sent Condition: stable Disposition: PACU Description of Procedure: OPERATION: Intrathecal pain pump analysis, programming and reprogramming, and intrathecal pain pump refill. PREOPERATIVE DIAGNOSES: 1. near empty intrathecal pain pump time for refill. 2. 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 opioid tolerance 2. failed back surgery syndrome lumbar area ANESTHESIA: None. CONDITION: Stable. Description of the procedure; Intrathecal pain pump analyzed ,it showed patient currently had reservoir volume[ 40 ] mL. The patient is receiving medication morphine 5 mg/ ml. and Bupivacaine 5 mg per mL Pain is well controlled , patient not using any medication for breakthrough pain The location of the pump left lower abdomen Prepped with chlorhexidine x3 , then using 22-gauge needle i[employer]rumz needle advanced through the pump port, Total of 20 mls removed from the pump, the pump was refilled with the new medication total volume 40 ml . The morphine sulfate preservative-free concentration is [ 5] mg /ml. Bupivacaine 5 mg per mL The patient will continue to use the daily dose [ 1.25 ] mg/day and bupivacaine 1.25 mg per day . Due to the patient's increasing pain lately I will give him a bolus of morphine 0.1 mg over 15 minutes and I will increase his daily dose to 1.35 mg a day .patient will follow up with the pain clinic in 3 months. He reports that he has seen a significant increase in his activity after having intrathecal pump placed and that it has substantially improved his quality of life Patient denies any side effect of the medication , he denies any excessive shaniqua wsiness or sleepiness and he reports that the intrathecal treatment is helping him do his daily activities. He does complain today of some itching in his back which might be due to the intrathecal morphine.
== END ==
LOC: PNWHC3 11:53
PROVIDERS: ATTEND Anesthesiology
DX: Z45.1 Encounter for adjustment and management of infusion pump (principal); M96.1 Postlaminectomy syndrome, not elsewhere classified; Z79.891 Long term (current) use of opiate analgesic
CPT/HCPCS: 80307; 62370; G0482

== ENCOUNTER → 2021-01-31 | Day surgery (SDC) | payer MEDICARE ==
--- NOTE | 2021-01-31 12:43 | P.PCN ---
Date of Procedure: 01/31/21 Procedure(s) Performed: OPERATION: Intrathecal pain pump analysis, programming and reprogramming, and intrathecal pain pump refill. PREOPERATIVE DIAGNOSES: 1. near empty intrathecal pain pump time for refill. 2. 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 near empty intrathecal pain pump time for refill. 2. 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 CONDITION: Stable. Description of the procedure; Intrathecal pain pump analysed ,it showed patient currently had reservoir volume[ 17.3 ] mL. The patient is receiving medication morphine 5 mg/ ml. and Bupivacaine 5 mg per mL Pain is well controlled , patient not using any medication for breakthrough pain The location of the pump left lower abdomen Prepped with chlorhexidine x3 , then using 22-gauge needle [employer] kit advanced through the pump port, Total of 19 ml removed from the pump, the pump refills with the new medication total volume 40 ml . The concentration morphine sulfate preservative-free [ 5] mg /ml. Bupivacaine 5 mg per mL The patient will continue to see the daily dose [ 1.35 ] mg/day and bupivacaine 1.35 mg per day and patient will follow up with the pain clinic in 3 months. He reports that he has seen a significant increase in his activity after having intrathecal pump placed and that it has substantially improved his quality of life Patient denies any side effect of the medication , he denies any excessive drowsiness or sleepiness and he reports the intrathecal treatment helping him to do activities of daily livings. - PQRS measures = - Patient's medications are documented in the chart. -Tobacco use is negative . -Patient's has received pneumococcal vaccine. -Advanced care planning discussed, patient not eligible. -Opiate contract signed. -Pain positive and follow-up visit/procedure is scheduled. -Patient's blood pressure measured 147/801 , and documented in the record ,and patient will follow up with the primary care. -Patient's weight was measured and body mass index above the normal limits and counseling was done. and patient instructed to follow-up with the primary care physician. -Patient was not identified as an unhealthy alcohol user
[2021-01-31 12:45] VITALS: BP 147/80; PULSE 55; RESP 16; TEMP 98.5
== END ==
LOC: PNWHC3 11:58
PROVIDERS: ATTEND Specialist
DX: Z45.1 Encounter for adjustment and management of infusion pump (principal); M51.36 Other intervertebral disc degeneration, lumbar region
CPT/HCPCS: 62370; J2274

== ENCOUNTER → 2021-04-25 | Day surgery (SDC) | payer MEDICARE ==
[2021-04-25 12:25] VITALS: BP 159/88; PULSE 51; RESP 20; TEMP 98
--- NOTE | 2021-04-25 12:54 | P.PCN ---
Date of Procedure: 04/25/21 Procedure(s) Performed: OPERATION: Intrathecal pain pump analysis, programming and reprogramming, and intrathecal pain pump refill. PREOPERATIVE DIAGNOSES: 1. near empty intrathecal pain pump time for refill. 2. 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 near empty intrathecal pain pump time for refill. 2. 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 CONDITION: Stable. Description of the procedure; Intrathecal pain pump analysed ,it showed patient currently had reservoir volume[ 17.3 ] mL. The patient is receiving medication morphine 5 mg/ ml. and Bupivacaine 5 mg per mL Pain is well controlled , patient not using any medication for breakthrough pain The location of the pump left lower abdomen Prepped with chlorhexidine x3 , then using 22-gauge needle [employer] kit advanced through the pump port, Total of 18 ml removed from the pump, the pump refills with the new medication total volume 40 ml . The concentration morphine sulfate preservative-free [ 5] mg /ml. Bupivacaine 5 mg per mL The patient will continue to see the daily dose [ 1.35 ] mg/day and bupivacaine 1.35 mg per day and patient will follow up with the pain clinic in 3 months. He reports that he has seen a significant increase in his activity after having intrathecal pump placed and that it has substantially improved his quality of life Patient denies any side effect of the medication , he denies any excessive drowsiness or sleepiness and he reports the intrathecal treatment helping him to do activities of daily livings. - PQRS measures = - Patient's medications are documented in the chart. -Tobacco use is negative . -Patient's has received pneumococcal vaccine. -Advanced care planning discussed, patient not eligible. -Opiate contract signed. -Pain positive and follow-up visit/procedure is scheduled. -Patient's blood pressure measured 159/881 , and documented in the record ,and patient will follow up with the primary care. -Patient's weight was measured and body mass index (31 )above the normal limits and counseling was done. and patient instructed to follow-up with the primary care physician. -Patient was not identified as an unhealthy alcohol user
== END ==
LOC: PNWHC3 11:58
PROVIDERS: ATTEND Specialist
DX: Z45.1 Encounter for adjustment and management of infusion pump (principal); M96.1 Postlaminectomy syndrome, not elsewhere classified; Y83.8 Other surgical procedures as the cause of abnormal reaction of the patient, or of later complication, without mention of misadventure at the time of the procedure
CPT/HCPCS: 80307; 62370; G0482; J2274

== ENCOUNTER → 2021-07-18 | Day surgery (SDC) | payer MEDICARE ==
--- NOTE | 2021-07-18 12:55 | P.PCN ---
Date of Procedure: 07/18/21 Procedure(s) Performed: OPERATION: Intrathecal pain pump analysis, programming and reprogramming, and intrathecal pain pump refill. PREOPERATIVE DIAGNOSES: 1. near empty intrathecal pain pump time for refill. 2. 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 near empty intrathecal pain pump time for refill. 2. 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 CONDITION: Stable. Description of the procedure; Intrathecal pain pump analysed ,it showed patient currently had reservoir volume[ 17.3 ] mL. The patient is receiving medication morphine 5 mg/ ml. and Bupivacaine 5 mg per mL Pain is well controlled , patient not using any medication for breakthrough pain The location of the pump left lower abdomen Prepped with chlorhexidine x3 , then using 22-gauge needle [employer] kit advanced through the pump port, Total of 19 ml removed from the pump, the pump refills with the new medication total volume 40 ml . The concentration morphine sulfate preservative-free [ 5] mg /ml. Bupivacaine 5 mg per mL The patient will continue to see the daily dose [ 1.35 ] mg/day and bupivacaine 1.35 mg per day and patient will follow up with the pain clinic in 3 months. He reports that he has seen a significant increase in his activity after having intrathecal pump placed and that it has substantially improved his quality of life Patient denies any side effect of the medication , he denies any excessive drowsiness or sleepiness and he reports the intrathecal treatment helping him to do activities of daily livings. - PQRS measures = - Patient's medications are documented in the chart. -Tobacco use is negative . -Patient's has received pneumococcal vaccine. -Advanced care planning discussed, patient not eligible. -Opiate contract signed. -Pain positive and follow-up visit/procedure is scheduled. -Patient's blood pressure measured 148/781 , and documented in the record ,and patient will follow up with the primary care. -Patient's weight was measured and body mass index (31 )above the normal limits and counseling was done. and patient instructed to follow-up with the primary care physician. -Patient was not identified as an unhealthy alcohol user
[2021-07-18 13:01] VITALS: BP 148/78; PULSE 57; RESP 18; TEMP 96.5
== END ==
LOC: PNWHC3 12:06
PROVIDERS: ATTEND Specialist
DX: Z45.1 Encounter for adjustment and management of infusion pump (principal); M96.1 Postlaminectomy syndrome, not elsewhere classified; Z79.891 Long term (current) use of opiate analgesic
CPT/HCPCS: 62370; J2274

== ENCOUNTER → 2021-09-24 | Day surgery (SDC) | payer MEDICARE ==
[2021-09-24 09:37] VITALS: BP 140/75; PULSE 54; RESP 18; TEMP 98.1
--- NOTE | 2021-09-24 13:09 | P.PCN ---
Date of Procedure: 09/24/21 Description of Procedure: Preoperative diagnosis: Lumbar post laminectomy, and chronic pain syndrome Status post intrathecal pump for chronic pain management Postoperative diagnosis: Lumbar post laminectomy, and chronic pain syndrome Status post intrathecal pump for chronic pain management PROCEDURES: 1. Intrathecal pump analysis. 2. Intrathecal pump reprogramming. 3. Intrathecal pump refill ANESTHESIA: None. EBL: None. COMPLICATIONS: None. IV FLUIDS: None. PROCEDURE INDICATION: Patient is well known to pain clinic for management of intrathecal pump for his chronic pain management. Patient denied any side effects with the medications. But patient complaining(low back pain and pain radiating to his lower extremities getting worse. He rated his pain is 8-9 out of 10 in severity. On examination lower extremity muscle strength normal, no clonus. Patient came here for pump refill for 3 months duration of the the intrathecal pump. PROCEDURE DESCRIPTION: The patient was seen and identified in the preoperative area. Risks, benefits, complications, and alternatives were discussed with the patient. The patient agreed to proceed with the procedure. Intrathecal pump was analyzed and displayed the following information: Type: SynchroMed Type II B Medication: Morphine 5 mg/ml , and bupivacaine 5 MG per mL infusion at 1.3518 mg/day Pump Volume: 40 ml [place] Volume: 21 ml PTM: Disabled At this time, the area of the intrathecal pump was exposed, prepped with ChloraPrep x1 , and draped in the usual sterile fashion. After which, the [employer] template was used to identify the area of the skin overlying the refill port at 2 o'clock position. After which, a 22-gauge Sultana needle attached to an extension tubing, which was clamped, attached to a syringe and inserted through the skin into the refill port. At that point, 23 mL of clear fluid was aspirated. The tubing was reclamped. This was discarded. A new medication was then identified from pharmacy, . This was then attached to a filter, which was primed and subsequently injected into the pump in increments with intermittent aspiration to ensure placement into the intrathecal pump. At this point, the pump was reprogrammed. The dose was increased by 5 %. Type: SynchroMed Type II B Medication: Morphine 5 mg/ml , and bupivacaine 5 MG per mL infusion at 1. 4184 mg/day Pump Volume: 40 ml [place] Volume: 40 ml PTM: Disabled The patient tolerated the procedure well and was sent home from the discharge area once meeting discharge criteria. Plan: The patient will follow up for further management and pump refills. Patient was discussed regarding adding Marcaine preservative-free to his intrathecal pump for better pain management patient was explained regarding the side effects and complications patient understood want to pursue local anesthetic along with his pain medication. In future plan to decrease his concentration 2 morphine 3 mg per mL, and bupivacaine preservative free 3 MG per mL so that we can decrease the concentration patient had more than 20 mL of [place] volume at the time of removing the medicine. Naloxone 4 mg intranasal for respiratory depression as needed, discussed with the patient and family how to use it if needed
== END ==
LOC: PNWHC3 08:49
DX: G89.4 Chronic pain syndrome (principal)
CPT/HCPCS: 62370; J2274

== ENCOUNTER → 2021-12-18 | Day surgery (SDC) | payer MEDICARE ==
[2021-12-17 10:44] VITALS: BMI 32.1
[2021-12-18 11:30] VITALS: BP 176/84; PULSE 69; RESP 16; TEMP 96.8
--- NOTE | 2021-12-18 12:14 | P.PCN ---
Date of Procedure: 12/18/21 Description of Procedure: Description of Procedure: Preoperative diagnosis: Lumbar post laminectomy, and chronic pain syndrome Status post intrathecal pump for chronic pain management Postoperative diagnosis: Lumbar post laminectomy, and chronic pain syndrome Status post intrathecal pump for chronic pain management PROCEDURES: 1. Intrathecal pump analysis. 2. Intrathecal pump reprogramming. 3. Intrathecal pump refill ANESTHESIA: None. EBL: None. COMPLICATIONS: None. IV FLUIDS: None. PROCEDURE INDICATION: Patient is well known to pain clinic for management of intrathecal pump for his chronic pain management. Patient denied any side effects with the medications. But patient complaining(low back pain and pain radiating to his lower extremities getting worse. He rated his pain is 8-9 out of 10 in severity. On examination lower extremity muscle strength normal, no clonus. Patient came here for pump refill for 3 months duration of the the intrathecal pump. PROCEDURE DESCRIPTION: The patient was seen and identified in the preoperative area. Risks, benefits, complications, and alternatives were discussed with the patient. The patient agreed to proceed with the procedure. Intrathecal pump was analyzed and displayed the following information: Type: SynchroMed Type II B Medication: Morphine 5 mg/ml , and bupivacaine 5 MG per mL infusion at 1.4184 mg/day Pump Volume: 40 ml [place] Volume: 17.5 ml PTM: Disabled At this time, the area of the intrathecal pump was exposed, prepped with ChloraPrep x2 , and draped in the usual sterile fashion. After which, the [employer] template was used to identify the area of the skin overlying the refill port at 2 o'clock position. After which, a 22-gauge Sultana needle attached to an extension tubing, which was clamped, attached to a syringe and inserted through the skin into the refill port. At that point, 17.5 mL of clear fluid was aspirated. The tubing was reclamped. This was discarded. A new medication was then identified from pharmacy, . This was then attached to a filter, which was primed and subsequently injected into the pump in increments with intermittent aspiration to ensure placement into the intrathecal pump. At this point, the pump was reprogrammed. The dose was not altered from previous dose Type: SynchroMed Type II B Medication: Morphine 5 mg/ml , and bupivacaine 5 MG per mL infusion at 1.4184 mg/day Pump Volume: 40 ml [place] Volume: 40 ml PTM: Disabled The patient tolerated the procedure well and was sent home from the discharge area once meeting discharge criteria. Plan: The patient will follow up for further management and pump refills. Patient was discussed regarding adding Marcaine preservative-free to his intrathecal pump for better pain management patient was explained regarding the side effects and complications patient understood want to pursue local anesthetic along with his pain medication. Naloxone 4 mg intranasal for respiratory depression as needed, discussed with the patient and family how to use it if needed
== END ==
LOC: ORPAIN 11:10
PROVIDERS: ATTEND Anesthesiology
DX: M96.1 Postlaminectomy syndrome, not elsewhere classified (principal); G89.4 Chronic pain syndrome; Z79.891 Long term (current) use of opiate analgesic
CPT/HCPCS: 80307; 62370; G0482; J2274

== ENCOUNTER → 2022-03-12 | Day surgery (SDC) | payer MEDICARE ==
[2022-03-12 11:37] VITALS: BP 163/91; PULSE 59; RESP 20; TEMP 97.5
--- NOTE | 2022-03-12 12:32 | P.PCN ---
Date of Procedure: 03/12/22 Procedure(s) Performed: Preoperative diagnosis: Lumbar post laminectomy, and chronic pain syndrome Status post intrathecal pump for chronic pain management Postoperative diagnosis: Lumbar post laminectomy, and chronic pain syndrome Status post intrathecal pump for chronic pain management PROCEDURES: 1. Intrathecal pump analysis. 2. Intrathecal pump reprogramming. 3. Intrathecal pump refill ANESTHESIA: None. EBL: None. COMPLICATIONS: None. IV FLUIDS: None. PROCEDURE INDICATION: Patient is well known to pain clinic for management of intrathecal pump for his chronic pain management. Patient denied any side effects with the medications. But patient complaining(low back pain and pain radiating to his lower extremities getting worse. He rated his pain is 8-9 out of 10 in severity. On examination lower extremity muscle strength normal, no clonus. Patient came here for pump refill for 3 months duration of the the intrathecal pump. PROCEDURE DESCRIPTION: The patient was seen and identified in the preoperative area. Risks, benefits, complications, and alternatives were discussed with the patient. The patient agreed to proceed with the procedure. Intrathecal pump was analyzed and displayed the following information: Type: SynchroMed Type II B Medication: Morphine 5 mg/ml , and bupivacaine 5 MG per mL infusion at 1.4184 mg/day Pump Volume: 40 ml [place] Volume: 16.3 ml PTM: Disabled At this time, the area of the intrathecal pump was exposed, prepped with ChloraPrep x3 , and draped in the usual sterile fashion. After which, the [employer] template was used to identify the area of the skin overlying the refill port at 2 o'clock position. After which, a 22-gauge Sultana needle attached to an extension tubing, which was clamped, attached to a syringe and inserted through the skin into the refill port. At that point, 16.5 mL of clear fluid was aspirated. The tubing was reclamped. This was discarded. A new medication was then identified from pharmacy, . This was then attached to a filter, which was primed and subsequently injected into the pump in increments with intermittent aspiration to ensure placement into the intrathecal pump. At this point, the pump was reprogrammed. The does increase by 3% because patient complaining of increased pain Type: SynchroMed Type II B Medication: Morphine 5 mg/ml , and bupivacaine 5 MG per mL infusion at 1.46 mg/day preservative-free morphine sulfate at 1.46 mg per day of preservative free bupivacaine Pump Volume: 40 ml [place] Volume: 40 ml PTM: Disabled The patient tolerated the procedure well and was sent home from the discharge area once meeting discharge criteria. Plan: The patient will follow up for further management and pump refills. Naloxone 4 mg intranasal for respiratory depression as needed, discussed with the patient and family how to use it if needed
== END ==
LOC: ORPAIN 11:16
PROVIDERS: ATTEND Specialist
DX: M96.1 Postlaminectomy syndrome, not elsewhere classified (principal); G89.4 Chronic pain syndrome; Z87.891 Personal history of nicotine dependence
CPT/HCPCS: 62370; J2274

== ENCOUNTER → 2022-06-04 | Day surgery (SDC) | payer MEDICARE ==
[2022-06-03 13:47] VITALS: BMI 33.9
[~2022-06-04] MED LIST changes: +LACTATED RINGERS 1,000 ML IV SCH
[2022-06-04 11:44] VITALS: BP 176/75; PULSE 53; RESP 16; TEMP 96.9
--- NOTE | 2022-06-04 12:54 | P.PCN ---
Date of Procedure: 06/04/22 Description of Procedure: Preoperative diagnosis: Lumbar post laminectomy, and chronic pain syndrome Status post intrathecal pump for chronic pain management Postoperative diagnosis: Lumbar post laminectomy, and chronic pain syndrome Status post intrathecal pump for chronic pain management PROCEDURES: 1. Intrathecal pump analysis. 2. Intrathecal pump reprogramming. 3. Intrathecal pump refill ANESTHESIA: None. EBL: None. COMPLICATIONS: None. IV FLUIDS: None. PROCEDURE INDICATION: Patient is well known to pain clinic for management of intrathecal pump for chronic pain management. Patient denied any side effects with the medications. Rated his pain is 5 out of 10 in severity. On examination lower extremity muscle strength normal, no clonus. Patient came here for pump refill. PROCEDURE DESCRIPTION: The patient was seen and identified in the preoperative area. Risks, benefits, complications, and alternatives were discussed with the patient. The patient agreed to proceed with the procedure. Intrathecal pump was analyzed and displayed the following information: Type: SynchroMed Type II B Medication: Morphine 5mg /ml infusion at 1.4607 mg/day Bupivacaine 5 MG per mL infusion at 1.4607 MG per day Pump Volume: 40 ml [place] Volume: 15 ml PTM: Disabled At this time, the area of the intrathecal pump was exposed, prepped with ChloraPrep x2 , and draped in the usual sterile fashion. After which, the [employer] template was used to identify the area of the skin overlying the refill port. After which, a 22-gauge Sultana needle attached to an extension tubing, which was clamped, attached to a syringe and inserted through the skin into the refill port. At that point, 18 mL of clear fluid was aspirated. The tubing was reclamped. This was discarded. A new medication was then identified from pharmacy, . This was then attached to a filter, which was primed and subsequently injected into the pump in increments with intermittent aspiration to ensure placement into the intrathecal pump. At this point, the pump was reprogrammed. The dose was adjusted : none Type: SynchroMed Type II B Medication: Morphine 10mg /ml infusion at 1.4607 mg/day Bupivacaine 5 MG per mL infusion at 1.4607 MG per day Pump Volume: 40 ml [place] Volume: 40 ml [place] Alarm Date: 12 weeks PTM: Disabled The patient tolerated the procedure well and was sent home from the discharge area once meeting discharge criteria. Plan: The patient will follow up for further management and pump refills. Medications given : Naloxone 4 mg intra-nasal for respiratory depression as needed dispense #2 .
== END ==
LOC: ORPAIN 11:11
DX: M96.1 Postlaminectomy syndrome, not elsewhere classified (principal); G89.4 Chronic pain syndrome; M54.50 Low back pain, unspecified; Z51.81 Encounter for therapeutic drug level monitoring
CPT/HCPCS: 80307; 62370; G0482; J2274

== ENCOUNTER → 2022-08-27 | Day surgery (SDC) | payer MEDICARE ==
[2022-08-22 12:00] VITALS: BMI 31.0
[~2022-08-27] MED LIST changes: -LACTATED RINGERS 1,000 ML IV SCH
[2022-08-27 11:21] VITALS: BP 159/85; PULSE 60; RESP 16; TEMP 98
--- NOTE | 2022-08-27 11:51 | P.PCN ---
Date of Procedure: 08/27/22 Description of Procedure: PROCEDURE: Intrathecal pain pump analysis, programming and reprogramming, and intrathecal pain pump refill. PREOPERATIVE DIAGNOSES: 1. near empty intrathecal pain pump 2. opioid tolerance POSTOPERATIVE DIAGNOSES: 1. near empty intrathecal pain pump 2. 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 CONDITION: Stable. DESCRIPTION OF PROCEDURE: Intrathecal pain pump analysed, it showed patient currently had reservoir .5 mL. The patient is receiving medication morphine 5 mg/ ml, and bupivacaine concentration bupivacaine 5 mg/ml. Patient receiving daily dose of 1.4607 mg mg/day and bupivacaine 1.4607 mg/day. Pain is well controlled , patient using medication for breakthrough pain 0 orally . The location of the pump left abdomen Prepped with chlorhexidine x3 , then using 22-gauge needle [employer] kit advanced through the pump port, Total of 17 ml removed from the pump, the pump refills with the new medication total volume 40 ml . The concentration was unchanged The patient will continue to see the daily dose above and patient will follow up with the pain clinic in 3 months.
== END ==
LOC: ORPAIN 10:59
PROVIDERS: ATTEND Hospitalist
DX: T85.840A Pain due to nervous system prosthetic devices, implants and grafts, initial encounter (principal); F11.288 Opioid dependence with other opioid-induced disorder
CPT/HCPCS: 62370; J2274

== ENCOUNTER 2022-09-17 12:56 | Observation (INO) | payer MEDICARE ==
--- NOTE | 2022-09-17 13:04 | ED ---
General Adult HPI - General Chief complaint: Chest Pain Stated complaint: Chest Pain Time Seen by Provider: 09/17/22 12:57 - History of Present Illness Initial comments: 72 year-old male coming in to the ED for chest pain. Patient notes he has had multiple episodes of chest tightness for the last week. These episodes l ast about 15 minutes and do not follow a pattern. He has been taking TUMS with mild relief. He reports that he had a cardiac catheterization procedure at this facility 10 years ago. Denies accompanying symptoms like nausea vomiting diaphoresis with arm pain shortness of breath. Denies alcohol/tobacco use, hx of angina. - Related Data Home Medications Medication Instructions Recorded Confirmed Morphine Pain Pump 0.01 pump SQ CONTINUOUS 11/13/17 09/17/22 Allergies Allergy/AdvReac Type Severity Reaction Status Date / Time No Known Allergies Allergy Verified 09/17/22 13:45 Review of Systems ROS Statement: Those systems with pertinent positive or pertinent negative responses have been documented in the HPI. ROS Other: All systems not noted in ROS Statement are negative. Past Medical History Past Medical History: Eye Disorder, Hearing Disorder / Deafness, Osteoarthritis (OA) Additional Past Medical History / Comment(s): Degenerative arthritis of the spine, chronic BACK PAIN, macular degeneration rmain. eyes -(wet right eye,dry left eye) Intrathecal pain pump, Bilateral hearing aids. History of Any Multi-Drug Resistant Organisms: None Reported Past Surgical History: Back Surgery, Heart Catheterization, Hernia Repair, Joint Replacement, Orthopedic Surgery Additional Past Surgical History / Comment(s): Back surgeries x4 w/ fusion of 5 discs, bilat knee replacements, hemorrhoidectomy, COLONOSCOPY, bilat hand tendon. arthroscopy ramin knees, right eye injection FOR MACULAR DEGENERATION. Intrathecal Pain Pump surgically implanted - 08-25-2017. RIGHT HAND SURGERY W/ PINS, later removed. Right hand bone graft. Past Anesthesia/Blood Transfusion Reactions: No Reported Reaction Smoking Status: Former smoker - Past Family History Mother Family Medical History: No Reported History Father Family Medical History: Cancer Additional Family Medical History / Comment(s): PROSTATE CANCER General Exam General appearance: alert, in no apparent distress Head exam: Present: atraumatic, normocephalic, normal inspection Eye exam: Present: normal appearance, PERRL, EOMI. Absent: scleral icterus, conjunctival injection, periorbital swelling ENT exam: Present: normal exam, mucous membranes moist Neck exam: Present: normal inspection. Absent: tenderness, meningismus, lymphadenopathy Respiratory exam: Present: normal lung sounds bilaterally. Absent: respiratory distress, wheezes, rales, rhonchi, stridor Cardiovascular Exam: Present: regular rate, normal rhythm, normal heart sounds. Absent: systolic murmur, diastolic murmur, rubs, gallop, clicks GI/Abdominal exam: Present: soft, normal bowel sounds. Absent: distended, tende rness, guarding, rebound, rigid Extremities exam: Present: normal inspection, full ROM, normal capillary refill. Absent: tenderness, pedal edema, joint swelling, calf tenderness Back exam: Present: normal inspection Neurological exam: Present: alert, oriented X3, CN II-XII intact Psychiatric exam: Present: normal affect, normal mood Skin exam: Present: warm, dry, intact, normal color. Absent: rash Course Vital Signs 09/17/22 13:10 Temperature 98.8 F Pulse Rate 60 Respiratory 18 Rate Blood Pressure 152/92 O2 Sat by Pulse 96 Oximetry - Reevaluation(s) Reevaluation #1: 09/17/22 14:11 updated patient on results and POC. EKG Findings - EKG Comments: EKG Findings:: EKF performed 13:14. rate 58bpm, sinus bradycardia with marked arrhythmia, GA 171, QRS 106 Medical Decision Making - Medical Decision Making 72 year old male coming in to the ED for chest pain. Patient had full cardiac workup, including lab work chest x-ray EKG ED. Lab work essentially unremarkable, EKG reviewed. I interpreted the following; chest x-ray negative for acute process. I discussed in detail the results the patient. My decision to admit, discussed case with Dr. Thomas who agrees and accepts the patient for admission. Case discussed with Dr. Fernando ELIAS. - Lab Data Result diagrams: 09/17/22 13:07 09/17/22 13:07 Lab Results 09/17/22 09/17/22 09/17/22 Range/Units 13:07 13:07 13:07 WBC 5.4 (3.8-10.6) k/uL RBC 4.47 (4.30-5.90) m/uL Hgb 13.1 (13.0-17.5) gm/dL Hct 39.6 (39.0-53.0) % MCV 88.7 (80.0-100.0) fL MCH 29.4 (25.0-35.0) pg MCHC 33.1 (31.0-37.0) g/dL RDW 12.0 (11.5-15.5) % Plt Count 281 (150-450) k/uL MPV 7.6 Neutrophils % 59 % Lymphocytes % 31 % Monocytes % 6 % Eosinophils % 1 % Basophils % 1 % Neutrophils # 3.2 (1.3-7.7) k/uL Lymphocytes # 1.7 (1.0-4.8) k/uL Monocytes # 0.4 (0-1.0) k/uL Eosinophils # 0.1 (0-0.7) k/uL Basophils # 0.0 (0-0.2) k/uL PT 10.1 (9.0-12.0) sec INR 0.9 (<1.2) APTT 24.0 (22.0-30.0) sec Sodium 138 (137-145) mmol/L Potassium 4.7 (3.5-5.1) mmol/L Chloride 102 (98-107) mmol/L Carbon Dioxide 33 H (22-30) mmol/L Anion Gap 3 mmol/L BUN 18 (9-20) mg/dL Creatinine 0.89 (0.66-1.25) mg/dL Est GFR (CKD-EPI)AfAm >90 (>60 ml/min/1.73 sqM) Est GFR (CKD-EPI)NonAf 85 (>60 ml/min/1.73 sqM) Glucose 118 H (74-99) mg/dL Calcium 9.5 (8.4-10.2) mg/dL Magnesium 1.8 (1.6-2.3) mg/dL Total Bilirubin 0.4 (0.2-1.3) mg/dL AST 31 (17-59) U/L ALT 24 (4-49) U/L Alkaline Phosphatase 108 (38-126) U/L Troponin I (0.000-0.034) ng/mL Total Protein 7.0 (6.3-8.2) g/dL Albumin 3.8 (3.5-5.0) g/dL 09/17/22 Range/Units 13:07 WBC (3.8-10.6) k/uL RBC (4.30-5.90) m/uL Hgb (13.0-17.5) gm/dL Hct (39.0-53.0) % MCV (80.0-100.0) fL MCH (25.0-35.0) pg MCHC (31.0-37.0) g/dL RDW (11.5-15.5) % Plt Count (150-450) k/uL MPV Neutrophils % % Lymphocytes % % Monocytes % % Eosinophils % % Basophils % % Neutrophils # (1.3-7.7) k/uL Lymphocytes # (1.0-4.8) k/uL Monocytes # (0-1.0) k/uL Eosinophils # (0-0.7) k/uL Basophils # (0-0.2) k/uL PT (9.0-12.0) sec INR (<1.2) APTT (22.0-30.0) sec Sodium (137-145) mmol/L Potassium (3.5-5.1) mmol/L Chloride (98-107) mmol/L Carbon Dioxide (22-30) mmol/L Anion Gap mmol/L BUN (9-20) mg/dL Creatinine (0.66-1.25) mg/dL Est GFR (CKD-EPI)AfAm (>60 ml/min/1.73 sqM) Est GFR (CKD-EPI)NonAf (>60 ml/min/1.73 sqM) Glucose (74-99) mg/dL Calcium (8.4-10.2) mg/dL Magnesium (1.6-2.3) mg/dL Total Bilirubin (0.2-1.3) mg/dL AST (17-59) U/L ALT (4-49) U/L Alkaline Phosphatase (38-126) U/L Troponin I <0.012 (0.000-0.034) ng/mL Total Protein (6.3-8.2) g/dL Albumin (3.5-5.0) g/dL Disposition Clinical Impression: Chest pain Disposition: ADMITTED IP TO THIS [facility] Condition: Fair Is patient prescribed a controlled substance at d/c from ED?: No Time of Disposition: 14:13
[2022-09-17 13:13] LABS: Basophils % (A) 1 %; Eosinophils # (A) 0.1 k/uL (0-0.7); Eosinophils % (A) 1 %; HCT 39.6 % (39.0-53.0); HGB 13.1 gm/dL (13.0-17.5); Lymphocytes # (A) 1.7 k/uL (1.0-4.8); Lymphocytes % (A) 31 %; MCH 29.4 pg (25.0-35.0); MCHC 33.1 g/dL (31.0-37.0); MCV 88.7 fL (80.0-100.0); Mean Platelet Volume 7.6; Monocytes # (A) 0.4 k/uL (0-1.0); Monocytes % (A) 6 %; Neutrophils # (A) 3.2 k/uL (1.3-7.7); Neutrophils % (A) 59 %; Platelet Count 281 k/uL (150-450); RBC 4.47 m/uL (4.30-5.90); WBC 5.4 k/uL (3.8-10.6)
[2022-09-17 13:22] LABS: ALT 24 U/L (4-49); AST 31 U/L (17-59); African American GFR (CKD) >90 (>60 ml/min/1.73 sqM); Albumin 3.8 g/dL (3.5-5.0); Alkaline Phosphatase 108 U/L (38-126); Anion Gap 3 mmol/L; Blood Urea Nitrogen 18 mg/dL (9-20); Calcium 9.5 mg/dL (8.4-10.2); Carbon Dioxide 33 mmol/L (22-30); Chloride 102 mmol/L (98-107); Glucose 118 mg/dL (74-99); INR 0.9 (<1.2); Magnesium 1.8 mg/dL (1.6-2.3); Non-African American GFR(CKD) 85 (>60 ml/min/1.73 sqM); Potassium 4.7 mmol/L (3.5-5.1); Prothrombin Time 10.1 sec (9.0-12.0); Sodium 138 mmol/L (137-145); Total Bilirubin 0.4 mg/dL (0.2-1.3)
[2022-09-17] MEDS ORDERED: NITROGLYCERIN SL TABS 0.4 MG TAB SUBLINGUAL PRN (14:14)
--- NOTE | 2022-09-17 14:16 | XR ---
EXAMINATION TYPE: XR chest 2V DATE OF EXAM: 09/17/2022 COMPARISON: 12/08/2017 HISTORY: 72-year-old male with chest pain TECHNIQUE: AP and lateral views FINDINGS: Heart upper limits of normal in size. Large body habitus catheter patency densities over the lungs. E ventration anterior right hemidiaphragm. Accentuated kyphosis at the thoracolumbar junction. No conso lidation or pleural effusion seen. IMPRESSION: Borderline heart size and chronic changes. No definite acute process.
[2022-09-17] MEDS ORDERED: MORPHINE SQ PRN (14:30)
[2022-09-18] MEDS ORDERED: VALSARTAN 160 MG TAB PO SCH (09:00)
[2022-09-18] MEDS ORDERED: ASPIRIN 325 MG TAB PO SCH (09:00)
[2022-09-18] MEDS: ATORVASTATIN 40 MG TAB PO SCH (09:15)
[2022-09-18] MEDS: ASPIRIN 81 MG PO SCH (09:15)
[2022-09-18 09:21] LABS: Chol/HDL Ratio 3.04 Ratio; LDL Cholesterol,Calculated 103.2 mg/dL (0.0-131.0); VLDL Calculation 19.68 mg/dL (5.00-40.00)
[2022-09-18 10:35] LABS: Chol/HDL Ratio 2.89 Ratio; LDL Cholesterol,Calculated 113.1 mg/dL (0.0-131.0); VLDL Calculation 16.44 mg/dL (5.00-40.00)
--- NOTE | 2022-09-18 11:14 | CA ---
Transthoracic Echo Report Name: Zachary Romero Age: 72 Gender: M : 1950 Exam Date: 09/18/2022 08:20 Exam Location: [place] [facility] Ht (in): 69 Wt (lb): 220 Ordering Physician: Elizabeth Haque Attending/Referring Phys: Polisher Sand Penny Hawley RDCS Procedure CPT: Indications: Chest Pain Cardiac Hx: Technical Quality: Fair Contrast 1: Total Dose (mL): Contrast 2: Total Dose (mL): MEASUREMENTS (Male / Female) Normal Values 2D ECHO LV Diastolic Diameter PLAX 5.0 cm 4.2 - 5.9 / 3.9 - 5.3 cm LV Systolic Diameter PLAX 2.3 cm IVS Diastolic Thickness 1.6 cm 0.6 - 1.0 / 0.6 - 0.9 cm LVPW Diastolic Thickness 1.7 cm 0.6 - 1.0 / 0.6 - 0.9 cm LV Relative Wall Thickness 0.7 RV Internal Dim ED PLAX 3.5 cm LA Volume 66.7 cm??? 18 - 58 / 22 - 52 cm??? M-MODE Aortic Root Diameter MM 3.6 cm LA Systolic Diameter MM 4.2 cm LA Ao Ratio MM 1.2 AV Cusp Separation MM 2.5 cm DOPPLER AV Peak Velocity 163.2 cm/s AV Peak Gradient 10.6 mmHg AV Mean Velocity 116.0 cm/s AV Mean Gradient 5.9 mmHg AV Velocity Time Integral 36.2 cm AI Peak Velocity 483.9 cm/s AI Peak Gradient 93.7 mmHg AI Pressure Half Time 619.1 ms LVOT Peak Velocity 110.3 cm/s LVOT Peak Gradient 4.9 mmHg LVOT Velocity Time Integral 28.2 cm MV Area PHT 3.3 cm??? Mitral E Point Velocity 65.5 cm/s Mitral A Point Velocity 88.8 cm/s Mitral E to A Ratio 0.7 MV Deceleration Time 231.7 ms MV E' Velocity 4.1 cm/s Mitral E to MV E' Ratio 15.8 TR Peak Velocity 284.2 cm/s TR Peak Gradient 32.3 mmHg Right Ventricular Systolic Press 34.4 mmHg FINDINGS Left Ventricle Moderately increased left ventricular wall thickness. Normal left ventricular systolic function with no obvious regional wall motion abnormalities. Left ventricular ejection fraction is estimated at 55 %. Right Ventricle Mild right ventricular dilatation. Right ventricular systolic pressure within normal limits. Right Atrium Normal right atrial size. Left Atrium Mildly increased left atrial volume. Mildly increased left atrial area. Mitral Valve Structurally normal mitral valve. No mitral stenosis. [id number] mitral regurgitation. Aortic Valve Mild aortic regurgitation. Aortic valve sclerosis. Tricuspid Valve Structurally normal tricuspid valve. Mild tricuspid regurgitation. Pulmonic Valve Trace pulmonic regurgitation. Pericardium No pericardial effusion. Aorta Normal size aortic root and proximal ascending aorta. CONCLUSIONS LVH with preserved systolic function Aortic root normal size Previewed by: Dr. Arnav Verma MD (Electronically Signed) Final Date: 18 September 2022 11:13
--- NOTE | 2022-09-18 11:16 | P.CRDCN ---
History of Present Illness History of present illness: This is Dr. Verma dictating a consult on this patient The patient was interviewed and examined IMPRESSION / ASSESSMENT: Uncontrolled hypertension Atypical chest discomfort with elevated blood pressure readings Mildly abnormal d-dimer Repeat EKG during active chest discomfort did not show any ST segment abnormalities consistent with ischemia. EKG unchanged from before Repeat troponin is also normal Repeat troponin and repeat EKG during active chest discomfort normal PLAN: Valsartan 160 mg twice daily A baby aspirin 81 mg daily Atorvastatin 40 mg by mouth daily Lipid panel, d-dimer, repeat troponin Hypertension management BMP tomorrow CT of the chest to evaluate the thoracic aorta Continue monitoring on 6 N., blood pressure monitoring HPI Patient presented with recurrent chest discomfort in the left pectoral area He is also been complaining of shortness of breath on exertion His blood pressure was very elevated upon admission and is consistently elevated 176/90, 165/83, 176/86 on 182/88 ROS: No fever chills or rigors, no cough, phlegm or expectoration, no nausea, vomiting or diarrhea, no hematuria, dysuria, no musculoskeletal complaints, no strokes or seizures, no skin lesions. EXAMINATION: Elevated blood pressure readings Afebrile Heart rates in the 50s Reduced breath sounds bilaterally on both lung dickey Heart sounds and normal S1 normal S2 no murmurs No lower extremity edema No JVD REVIEW OF LABS, ECG & MEDICAL DATA White count normal Hemoglobin 13.1 BUN 18 and creatinine 0.9 normal troponins LDL 130 HDL 68 Triglycerides 82 Hemoglobin A1c 5.7 Past Medical History Past Medical History: Eye Disorder, Hearing Disorder / Deafness, Osteoarthritis (OA) Additional Past Medical History / Comment(s): Degenerative arthritis of the spine, chronic BACK PAIN, macular degeneration ramin. eyes -(wet right eye,dry left eye) Intrathecal pain pump, Bilateral hearing aids. History of Any Multi-Drug Resistant Organisms: None Reported Past Surgical History: Back Surgery, Heart Catheterization, Hernia Repair, Joint Replacement, Orthopedic Surgery Additional Past Surgical History / Comment(s): Back surgeries x4 w/ fusion of 5 discs, bilat knee replacements, hemorrhoidectomy, COLONOSCOPY, bilat hand tendon. arthroscopy ramin knees, right eye injection FOR MACULAR DEGENERATION. Intrathecal Pain Pump surgically implanted - 08-25-2017. RIGHT HAND SURGERY W/ PINS, later removed. Right hand bone graft. Past Anesthesia/Blood Transfusion Reactions: No Reported Reaction Past Psychological History: No Psychological Hx Reported Smoking Status: Former smoker Past Alcohol Use History: None Reported Additional Past Alcohol Use History / Comment(s): STARTED SMOKING AT AGE 18, Q UIT 1979, SMOKED 1/2PPD. Past Drug Use History: None Reported - Past Family History Mother Family Medical History: No Reported History Father Family Medical History: Cancer Additional Family Medical History / Comment(s): PROSTATE CANCER Medications and Allergies Home Medications Medication Instructions Recorded Confirmed Type Morphine Pain Pump 0.01 pump SQ CONTINUOUS 11/13/17 09/17/22 History Allergies Allergy/AdvReac Type Severity Reaction Status Date / Time No Known Allergies Allergy Verified 09/17/22 13:45 Physical Exam Vitals: Vital Signs Temp Pulse Pulse Resp BP BP Pulse Ox 09/18/22 08:00 56 L 17 09/18/22 07:00 98.2 F 56 L 17 176/90 96 09/18/22 02:19 97.7 F 56 L 17 165/83 98 09/18/22 02:00 56 L 09/17/22 22:40 56 L 176/86 09/17/22 22:03 98.2 F 58 L 17 182/88 97 09/17/22 21:00 56 L 17 09/17/22 20:00 60 18 174/92 93 L 09/17/22 17:41 56 L 18 130/92 93 L 09/17/22 13:30 18 09/17/22 13:10 98.8 F 60 18 152/92 96 Intake and Output 09/17/22 09/18/22 09/18/22 22:59 06:59 14:59 Other: Voiding Method Toilet Toilet # Voids 1 2 Weight 99.79 kg Results 09/17/22 13:07 09/17/22 13:07 Cardiac Enzymes 09/17/22 09/17/22 09/17/22 Range/Units 13:07 13:07 15:14 AST 31 (17-59) U/L Troponin I <0.012 <0.012 (0.000-0.034) ng/mL 09/17/22 09/18/22 Range/Units 19:31 08:09 AST (17-59) U/L Troponin I <0.012 <0.012 (0.000-0.034) ng/mL Coagulation 09/17/22 Range/Units 13:07 PT 10.1 (9.0-12.0) sec APTT 24.0 (22.0-30.0) sec Lipids 09/17/22 09/18/22 Range/Units 13:07 08:09 Triglycerides 98.40 82.20 (0.00-149.00) mg/dL Cholesterol 183.00 198.00 (0.00-200.00) mg/dL HDL Cholesterol 60.10 H 68.50 H (40.00-60.00) mg/dL Cholesterol/HDL Ratio 3.04 2.89 Ratio CBC 09/17/22 Range/Units 13:07 WBC 5.4 (3.8-10.6) k/uL RBC 4.47 (4.30-5.90) m/uL Hgb 13.1 (13.0-17.5) gm/dL Hct 39.6 (39.0-53.0) % Plt Count 281 (150-450) k/uL Comprehensive Metabolic Panel 09/17/22 Range/Units 13:07 Sodium 138 (137-145) mmol/L Potassium 4.7 (3.5-5.1) mmol/L Chloride 102 (98-107) mmol/L Carbon Dioxide 33 H (22-30) mmol/L BUN 18 (9-20) mg/dL Creatinine 0.89 (0.66-1.25) mg/dL Glucose 118 H (74-99) mg/dL Calcium 9.5 (8.4-10.2) mg/dL AST 31 (17-59) U/L ALT 24 (4-49) U/L Alkaline Phosphatase 108 (38-126) U/L Total Protein 7.0 (6.3-8.2) g/dL Albumin 3.8 (3.5-5.0) g/dL Current Medications Generic Name Dose Route Start Last Admin Trade Name Freq PRN Reason Stop Dose Admin Aspirin 81 mg 09/18/22 09:00 09/18/22 09:15 Aspirin 81 Mg PO 81 mg DAILY BRISSA Administration Atorvastatin Calcium 40 mg 09/18/22 09:00 09/18/22 09:15 Atorvastatin 40 Mg Tab PO 40 mg DAILY BRISSA Administration Nitroglycerin 0.4 mg 09/17/22 14:14 Nitroglycerin Sl Tabs 0.4 Mg Tab SUBLINGUAL Q5M PRN Chest Pain Non-Formulary Medication 0.01 pump 09/17/22 14:30 Morphine Pain Pump SQ CONTINUOUS PRN HOME PAIN PUMP Valsartan 160 mg 09/18/22 21:00 Valsartan 160 Mg Tab PO BID BRISSA Intake and Output 09/17/22 09/18/22 09/18/22 22:59 06:59 14:59 Other: Voiding Method Toilet Toilet # Voids 1 2 Weight 99.79 kg 09/17/22 13:07 09/17/22 13:07
[2022-09-18] MEDS: VALSARTAN 160 MG TAB PO SCH (12:58)
--- NOTE | 2022-09-18 13:43 | CT ---
EXAMINATION TYPE: CT angio chest DATE OF EXAM: 09/18/2022 COMPARISON: NONE HISTORY: CP/elevated BP/ thoracic aorta CT DLP: 988 mGycm. Automated Exposure Control for Dose Reduction was Utilized. CONTRAST: CTA scan of the thorax is performed without and with IV Contrast, patient injected with 100cc mL of I sovue 370, aneurysm protocol. 3D reconstructed images are created on an independent workstation and r eviewed. FINDINGS: LUNGS: The lungs are grossly clear, there is no concerning parenchymal mass or nodule identified. T here is no pleural effusion or pneumothorax seen. The tracheobronchial tree is patent. MEDIASTINUM: Noncontrast images show no hyperdense material to suggest intramural hematoma. Satisfact ory enhancement of the central pulmonary arteries is seen. Ascending aorta measures 3.6 cm at the aor tic root. Aorta measures up to 3.7 cm at level of main pulmonary artery axial image 62. There is bovi ne type aortic arch which is normal variant. No linear hypodensity to suggest dissection. There is 1. 3 cm left thyroid nodule lower pole colon image 91. There are no greater than 1 cm hilar or mediasti nal lymph nodes. No cardiomegaly or pericardial effusion is seen. OTHER: Probable 1 to 2 mm nonobstructing calculus left kidney upper to midpole level coronal image 89 . Surgical change to the lumbar spine is partially imaged with posterior decompression changes. Bridg ing osteophytes in the lower thoracic and upper lumbar spine are present. Exaggerated kyphosis is see n. Left lateral anterior stimulator device is partially imaged. IMPRESSION: Slight ectasia to the descending aorta. No greater than 4.0 cm aneurysm. No thoracic aort ic dissection. Lungs are noted clear.
--- NOTE | 2022-09-18 18:48 | P.HPIM ---
History of Present Illness H&P Date: 09/18/22 Chief Complaint: Chest pain This is a pleasant 72-year-old patient who follows with Dr. Rolo Sesay. Chronic stable medical conditions include hard of hearing, osteoarthritis of the lower spine with previous 4 surgeries, macular degeneration of both the eyes, as intrathecal pain pump. Patient is accompanied by his . For about one week patient been having dull ache in the lower chest. Comes and goes. Not really related to activity. Sometimes short of breath. Patient does get episodes of perspiration but not related to the current presentation. No obvious aggravating or relieving factors. No radiation to neck or arm. Review of systems: GEN.: Tired EYES: None HEENT: None NECK: None RESPIRATORY: None CARDIOVASCULAR: As above GASTROINTESTINAL: None GENITOURINARY: None MUSCULOSKELETAL: Chronic low back pain LYMPHATICS: None HEMATOLOGICAL: None PSYCHIATRY: None NEUROLOGICAL: None Past medical history to include: Hard of hearing, osteoarthritis, DJD of the spine, macular degeneration above the eyes, dry left eye, intrathecal pain pump, Social history: No smoking. No alcohol. . Worked as a [email or web address] Physical examination: VITAL SIGNS: 98.2, 56, 17, 1 65/83, 98% room air GENERAL: BMI 32.5, resting in bed,]. EYES: Pupils equal. Conjunctiva normal. HEENT: External appearance of nose and ears normal, oral cavity grossly normal. NECK: JVD not raised; masses not palpable. HEART: First and second heart sounds are normal; no edema. LUNGS: Respiratory rate normal; clear to auscultation. ABDOMEN: Soft, nontender, liver spleen not palpable, no masses palpable left abdominal wall pain pump. PSYCH: Alert and oriented x3; mood and affect normal. MUSCULOSKELETAL:No Clubbing/cyanosis;muscles-grossly intact, OA NEUROLOGICAL: Cranial nerves grossly intact; no facial asymmetry, power and sensation grossly intact. LYMPHATICS: No lymph nodes palpable in the axilla and neck INVESTIGATIONS, reviewed in the clinical context: CT chest angiogram: The not reported. 1-2 mm nonobstructing calculus left kidney. Changes of DJD. White count 5.40 globin 13.1 platelets 281 potassium 4.7 creatinine 0.89 Troponin I 3 negative LDL 103 EKG tracing personally reviewed by me-normal sinus rhythm. 58/m. Chest x-ray film personally reviewed by me-cardiomegaly. Some elevated right diaphragm. Questionable venous prominence 2-D echocardiogram EF 55% Assessment and plan: -Anterior chest wall pain. Present for a week. Troponin is negative. Risk factors include his age. Doubt cardiac. Cardiology consulted -Hard of hearing, patient is hearing aids -Chronic low back pain from arthritis. Patient's had 4 previous surgeries. Has a pain pump -Obesity BMI 32.3 Weight loss measures -Left kidney nephrolithiasis 1-2 mm. Asymptomatic Telemetry. Resume home medications. Discussed with patient and . Seen by cardiology. 4 stress echocardiogram. Past Medical History Past Medical History: Eye Disorder, Hearing Disorder / Deafness, Osteoarthritis (OA) Additional Past Medical History / Comment(s): Degenerative arthritis of the spine, chronic BACK PAIN, macular degeneration ramin. eyes -(wet right eye,dry left eye) Intrathecal pain pump, Bilateral hearing aids. History of Any Multi-Drug Resistant Organisms: None Reported Past Surgical History: Back Surgery, Heart Catheterization, Hernia Repair, Joint Replacement, Orthopedic Surgery Additional Past Surgical History / Comment(s): Back surgeries x4 w/ fusion of 5 discs, bilat knee replacements, hemorrhoidectomy, COLONOSCOPY, bilat hand tendon. arthroscopy ramin knees, right eye injection FOR MACULAR DEGENERATION. Intrathecal Pain Pump surgically implanted - 08-25-2017. RIGHT HAND SURGERY W/ PINS, later removed. Right hand bone graft. Past Anesthesia/Blood Transfusion Reactions: No Reported Reaction Past Psychological History: No Psychological Hx Reported Smoking Status: Former smoker Past Alcohol Use History: None Reported Additional Past Alcohol Use History / Comment(s): STARTED SMOKING AT AGE 18, QUIT 1979, SMOKED 1/2PPD. Past Drug Use History: None Reported - Past Family History Mother Family Medical History: No Reported History Father Family Medical History: Cancer Additional Family Medical History / Comment(s): PROSTATE CANCER Medications and Allergies Home Medications Medication Instructions Recorded Confirmed Type Morphine Pain Pump 0.01 pump SQ CONTINUOUS 11/13/17 09/17/22 History Allergies Allergy/AdvReac Type Severity Reaction Status Date / Time No Known Allergies Allergy Verified 09/17/22 13:45 Physical Exam Vitals: Vital Signs Temp Pulse Pulse Resp BP BP Pulse Ox 09/18/22 07:00 98.2 F 56 L 17 176/90 96 09/18/22 02:19 97.7 F 56 L 17 165/83 98 09/18/22 02:00 56 L 09/17/22 22:40 56 L 176/86 09/17/22 22:03 98.2 F 58 L 17 182/88 97 09/17/22 21:00 56 L 17 09/17/22 20:00 60 18 174/92 93 L 09/17/22 17:41 56 L 18 130/92 93 L 09/17/22 13:30 18 09/17/22 13:10 98.8 F 60 18 152/92 96 Intake and Output 09/17/22 09/18/22 09/18/22 22:59 06:59 14:59 Other: Voiding Method Toilet # Voids 1 2 Weight 99.79 kg Results CBC & Chem 7: 09/17/22 13:07 09/17/22 13:07 Labs: Abnormal Lab Results - Last 24 Hours (Table) 09/17/22 09/17/22 09/18/22 Range/Units 13:07 13:07 08:09 D-Dimer 0.64 H (<0.60) mg/L FEU Carbon Dioxide 33 H (22-30) mmol/L Glucose 118 H (74-99) mg/dL HDL Cholesterol 60.10 H (40.00-60.00) mg/dL Thrombosis Risk Factor Assmnt - Choose All That Apply Each Factor Represents 1 point: Obesity (BMI >25) Each Risk Factor Represents 2 Points: Age 61-74 years Thrombosis Risk Factor Assessment Total Risk Factor Score: 3 Thrombosis Risk Factor Assessment Level: Moderate Risk
[2022-09-19 03:40] VITALS: RESP 16
[2022-09-19 07:56] VITALS: PULSE 80; TEMP 97.6
[2022-09-19] MEDS: VALSARTAN 160 MG TAB PO SCH (09:10)
[2022-09-19] MEDS: ATORVASTATIN 40 MG TAB PO SCH (09:10)
[2022-09-19] MEDS: ASPIRIN 81 MG PO SCH (09:10)
--- NOTE | 2022-09-19 09:29 | P.PN ---
Subjective Progress Note Date: 09/19/22 The patient was interviewed and examined IMPRESSION / ASSESSMENT: Uncontrolled hypertension, improved Atypical chest discomfort with elevated blood pressure readings Mildly abnormal d-dimer, CT ruled out thoracic aortic dissection Repeat EKG during active chest discomfort did not show any ST segment ab normalities consistent with ischemia. EKG unchanged from before Repeat troponin is also normal Repeat troponin and repeat EKG during active chest discomfort normal PLAN: Continue patient on Valsartan 160 mg twice daily A baby aspirin 81 mg daily Atorvastatin 40 mg by mouth daily Hypertension management Repeat BMP ordered for today, if this shows no abnormality, patient is cleared from cardiology for discharge with plan to follow-up in the office with Dr. Verma and 1-2 weeks. Further adjustments will be made to antihypertensive medications at that time. HPI Patient presented with recurrent chest discomfort in the left pectoral area He is also been complaining of shortness of breath on exertion His blood pressure was very elevated upon admission and is consistently elevated 176/90, 165/83, 176/86 on 182/88 09/19 Noted the blood pressure is significantly improved from yesterday with the addition of valsartan. Patient states that he had was having chest pain until blood pressure medication was given. Plan is to ambulate the patient well today, recheck BMP and follow from the office in one to 2 weeks EXAMINATION: Elevated blood pressure readings Afebrile Heart rates in the 50s Reduced breath sounds bilaterally on both lung dickey Heart sounds and normal S1 normal S2 no murmurs No lower extremity edema No JVD REVIEW OF LABS, ECG & MEDICAL DATA White count normal Hemoglobin 13.1 BUN 18 and creatinine 0.9 normal troponins LDL 130 HDL 68 Triglycerides 82 Hemoglobin A1c 5.7 Nurse practitioner note has been reviewed, I agree with the documented findings and plan of care. Patient was seen and examined. Objective - Vital Signs Vital signs: Vital Signs Temp 97.7 F 09/19/22 03:05 Pulse 50 L 09/19/22 03:05 Resp 16 09/19/22 03:05 BP 147/77 09/19/22 03:05 Pulse Ox 95 09/19/22 03:05 FiO2 Intake & Output 09/18/22 09/19/22 09/19/22 18:59 06:59 18:59 Other: Voiding Method Toilet Toilet # Voids 2 2 - Labs CBC & Chem 7: 09/17/22 13:07 09/17/22 13:07 Labs: Abnormal Lab Results - Last 24 Hours (Table) 09/17/22 09/18/22 09/18/22 Range/Units 13:07 08:09 08:09 D-Dimer 0.64 H (<0.60) mg/L FEU HDL Cholesterol 60.10 H 68.50 H (40.00-60.00) mg/dL
[2022-09-19 09:30] LABS: African American GFR (CKD) 94.6 (60.0-200.0); Anion Gap 7.9 mmol/L (10.00-18.00); BUN/Creat Ratio 14.9 Ratio (12.00-20.00); Blood Urea Nitrogen 13.8 mg/dL (9.0-27.0); Calcium 9.5 mg/dL (8.7-10.3); Carbon Dioxide 28.9 mmol/L (20.0-27.5); Non-African American GFR(CKD) 81.6 (60.0-200.0); Potassium 4.9 mmol/L (3.5-5.5)
[2022-09-19] MEDS ORDERED: PANTOPRAZOLE 40 MG/10 ML VIAL IVP ONE (11:09)
--- NOTE | 2022-09-19 14:14 | P.DS ---
Providers Date of admission: 09/17/22 14:21 Expected date of discharge: 09/19/22 Attending physician: Alfonzo Thomas Consults: 09/17/22 14:14 Consult Physician Urgent Consulting Provider: Colin Elias Consult Reason/Comments: Chest pain Do you want consulting provider notified?: Yes Primary care physician: Rolo Sesay MD Hospital Course: Chief Complaint: Chest pain This is a pleasant 72-year-old patient who follows with Dr. Rolo Sesay. Chronic stable medical conditions include hard of hearing, osteoarthritis of the lower spine with previous 4 surgeries, macular degeneration of both the eyes, as intrathecal pain pump. Patient is accompanied by his . For about one week patient been having dull ache in the lower chest. Comes and goes. Not really related to activity. Sometimes short of breath. Patient does get episodes of perspiration but not related to the current presentation. No obvious aggravating or relieving factors. No radiation to neck or arm. 09/19/2022: Patient seen by cardiology. Symptoms improved with better blood pressure control. Diovan was added. Patient seemed Dr. Arnav Verma from cardiology. Gait for discharge. Patient did ambulate. Feeling well. Care was discussed with the patient at the bedside. Past medical history to include: Hard of hearing, osteoarthritis, DJD of the spine, macular degeneration above the eyes, dry left eye, intrathecal pain pump, Social history: No smoking. No alcohol. . 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 Conjunctiva normal. HEENT: External appearance of nose and ears normal, oral cavity grossly normal. NECK: JVD not raised; masses not palpable. HEART: First and second heart sounds are normal; no edema. LUNGS: Respiratory rate normal; clear to auscultation. ABDOMEN: Soft, nontender, liver spleen not palpable, no masses palpable left abdominal wall pain pump. PSYCH: Alert and oriented x3; mood and affect normal. MUSCULOSKELETAL:No Clubbing/cyanosis;muscles-grossly intact, OA INVESTIGATIONS, reviewed in the clinical context: 09/19/2022: Potassium 4.9 creatinine 0.[address] chest angiogram: The not reported. 1-2 mm nonobstructing calculus left kidney. Changes of DJD. White count 5.40 globin 13.1 platelets 281 potassium 4.7 creatinine 0.89 Troponin I 3 negative LDL 103 EKG tracing personally reviewed by me-normal sinus rhythm. 58/m. Chest x-ray film personally reviewed by me-cardiomegaly. Some elevated right diaphragm. Questionable venous prominence 2-D echocardiogram EF 55% Assessment and plan: -Anterior chest wall pain. Present for a week. Troponin is negative. Risk factors include his age.: Secondary to uncontrolled hypertension [address] Arnav Verma -Essential hypertension uncontrolled Diovan 160 mg twice a day -Hard of hearing, patient is hearing aids -Chronic low back pain from arthritis. Patient's had 4 previous surgeries. Has a pain pump -Obesity BMI 32.3 Weight loss measures -Left kidney nephrolithiasis 1-2 mm. Asymptomatic Disposition home Patient Condition at Discharge: Fair Plan - Discharge Summary New Discharge Prescriptions: New Valsartan [Diovan] 160 mg PO BID #60 tab Aspirin 81 mg PO DAILY tab Atorvastatin [Lipitor] 20 mg PO HS #30 tablet Continue Morphine Pain Pump 0.01 pump SQ CONTINUOUS Discharge Medication List Morphine Pain Pump 0.01 pump SQ CONTINUOUS 11/13/17 [History] Aspirin 81 mg PO DAILY tab 09/19/22 [Rx] Atorvastatin [Lipitor] 20 mg PO HS #30 tablet 09/19/22 [Rx] Valsartan [Diovan] 160 mg PO BID #60 tab 09/19/22 [Rx] Follow up Appointment(s)/Referral(s): Arnav Verma MD [STAFF PHYSICIAN] - 10 Days (Follow-up Dr. Verma/Ivette Sesay in 7-14 days) Rolo Sesay MD [Primary Care Provider] - 1-2 days Discharge Disposition: HOME SELF-CARE
[2022-09-19 15:10] VITALS: BP 122/74
== END 2022-09-19 15:15 | disposition home or self-care (01) ==
LOC: EC 12:56 → 6NMEDSUR 14:21
PROVIDERS: ADMIT Hospitalist; ATTEND Hospitalist
DX: R07.89 Other chest pain (principal); I10 Essential (primary) hypertension; R77.8 Other specified abnormalities of plasma proteins; M47.816 Spondylosis without myelopathy or radiculopathy, lumbar region; N20.0 Calculus of kidney; H91.93 Unspecified hearing loss, bilateral; E66.9 Obesity, unspecified; Z68.32 Body mass index [BMI] 32.0-32.9, adult; Z87.891 Personal history of nicotine dependence; Z96.653 Presence of artificial knee joint, bilateral
CPT/HCPCS: 96374; 99285; 36415; 93005; 93306; 85379; 80061 ×2; 80053; 80048; 83735; 84484 ×3; 85025; 85610; 85730; 83036; 71046; 71275; G0378 ×3; C9113; Q9967

== ENCOUNTER → 2023-02-18 | Day surgery (SDC) | payer MEDICARE ==
[2023-02-18 11:48] VITALS: BP 160/74; PULSE 53; TEMP 97.3
--- NOTE | 2023-02-18 12:11 | P.PCN ---
Date of Procedure: 02/18/23 Surgeon: Elizabeth Lerner Description of Procedure: Procedure: Intrathecal pain pump analysis, programming and reprogramming, intrathecal pain pump refill. PREOPERATIVE DIAGNOSES: 1. near empty intrathecal pain pump . 2. 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 failed back surgery syndrome lumbar area ANESTHESIA: None. CONDITION: Stable. Description of the procedure; The intrathecal opioid pump was analyzed and showed a current reservoir residual volume of 14.8 mls. Concentrate of daily morphine is 1.386 mg per day. Skin was prepped with ChloraPrep and draped in a sterile manner. I used 22- gauge needle found in the [employer] intrathecal access to go through the central pump port. 16.5 mls were withdrawn. Then the new medication was injected incrementally with frequent aspiration to ensure delivery of the new medication inside the pump reservoir. The new medication was infused inside the pump reservoir through a filter provided the [employer] kit. The new medication concentration is: Morphine 5 mg per mL plus bupivacaine 4 mg per mL. The patient asked to bring the morphine dose down slightly today. The pump then was reprogrammed for a new reservoir volume of 40 mls and the rate 1.25 of morphine mg/d, bupivacaine 1.25 mg/d. The patient tolerated the procedure well. The patient denies any new neurologic symptoms in the lower extremities.
== END ==
LOC: ORPAIN 11:23
PROVIDERS: ATTEND Anesthesiology
DX: Z45.1 Encounter for adjustment and management of infusion pump (principal)
CPT/HCPCS: 62370; J2274

== ENCOUNTER → 2023-05-13 | Day surgery (SDC) | payer MEDICARE ==
[2023-05-13 12:10] VITALS: BP 169/80; PULSE 54; RESP 18; TEMP 98.1
--- NOTE | 2023-05-13 12:40 | P.PCN ---
Date of Procedure: 05/13/23 Procedure(s) Performed: Preoperative diagnosis: Lumbar post laminectomy, and chronic pain syndrome Status post intrathecal pump for chronic pain management Postoperative diagnosis: Lumbar post laminectomy, and chronic pain syndrome Status post intrathecal pump for chronic pain management PROCEDURES: 1. Intrathecal pump analysis. 2. Intrathecal pump reprogramming. 3. Intrathecal pump refill ANESTHESIA: None. EBL: None. COMPLICATIONS: None. IV FLUIDS: None. PROCEDURE INDICATION: Patient is well known to pain clinic for management of intrathecal pump for his chronic pain management. Patient denied any side effects with the medications. But patient complaining(low back pain and pain radiating to his lower extremities getting worse. . On examination lower extremity muscle strength normal, no clonus. Patient came here for pump refill for 3 months duration of the the intrathecal pump. PROCEDURE DESCRIPTION: The patient was seen and identified in the preoperative area. Risks, benefits, complications, and alternatives were discussed with the patient. The patient agreed to proceed with the procedure. Intrathecal pump was analyzed and displayed the following information: Type: SynchroMed Type II B Medication: Morphine 5 mg/ml , and bupivacaine 5 MG per mL infusion at 1.25 mg/day Pump Volume: 40 ml [place] Volume: 19 ml PTM: Disabled At this time, the area of the intrathecal pump was exposed, prepped with ChloraPrep x3 , and draped in the usual sterile fashion. After which, the Box template was used to identify the area of the skin overlying the refill port . After which, a 22-gauge Sultana needle attached to an extension tubing, which was clamped, attached to a syringe and inserted through the skin into the refill port. At that point, 19 mL of clear fluid was aspirated. The tubing was reclamped. This was discarded. A new medication was then identified from pharmacy, . This was then attached to a filter, which was primed and subsequently injected into the pump in increments with intermittent aspiration to ensure placement into the intrathecal pump. At this point, the pump was reprogrammed. Type: SynchroMed Type II B Medication: continue Morphine 5 mg/ml , and bupivacaine 5 MG per mL infusion at 1.25 mg/day preservative-free morphine sulfate at 1.25 mg per day of preservative free bupivacaine Pump Volume: 40 ml [place] Volume: 40 ml PTM: Disabled The patient tolerated the procedure well and was sent home from the discharge area once meeting discharge criteria. Plan: The patient will follow up for further management and pump refills. Naloxone 4 mg intranasal for respiratory depression as needed, discussed with the patient and family how to use it if needed
== END ==
LOC: ORPAIN 11:02
PROVIDERS: ATTEND Specialist
DX: M54.51 Vertebrogenic low back pain (principal); G89.4 Chronic pain syndrome; Z76.0 Encounter for issue of repeat prescription
CPT/HCPCS: 62370; J2274; 99212

== ENCOUNTER → 2023-07-17 | Outpatient (CLI) | payer MEDICARE ==
[2023-07-17 14:13] LABS: Appearance,BF Cloudy; Color,BF Yellow; Nucleated Cells, Body Fluid 6750 /uL; RBC, Body Fluid 2000 /uL
[2023-07-17 14:18] LABS: Mononuclear WBC,Body Fluid 100 %; Total Cells Counted,Body Fluid 100
[2023-07-17 16:52] LABS: ALT 21 U/L (10-49); AST 23 U/L (14-35); Albumin 3.9 d/dL (3.8-4.9); Albumin/Globulin Ratio 1.22 Ratio (1.60-3.17); Alkaline Phosphatase 124 U/L (41-126); Blood Urea Nitrogen 12.6 mg/dL (9.0-27.0); Calcium 9.5 mg/dL (8.7-10.3); Carbon Dioxide 26.5 mmol/L (21.6-31.8); Chloride 101 mmol/L (96-109); Globulin 3.2 d/dL (1.6-3.3); Glucose 109 mg/dL (70-110); Potassium 4.7 mmol/L (3.5-5.5); Sodium 137 mmol/L (135-145); Total Bilirubin 0.5 mg/dL (0.3-1.2); Total Protein 7.1 d/dL (6.2-8.2)
== END | disposition home or self-care (01) ==
LOC: LABWHC1 11:05
PROVIDERS: ATTEND Orthopaedic Surgery
DX: M25.561 Pain in right knee (principal); M25.461 Effusion, right knee; T84.84XA Pain due to internal orthopedic prosthetic devices, implants and grafts, initial encounter; Z96.651 Presence of right artificial knee joint; Y82.9 Unspecified medical devices associated with adverse incidents
CPT/HCPCS: 36415; 80053; 85379; 85652; 86140; 87070; 87075; 87205; 89050

== ENCOUNTER → 2023-08-05 | Day surgery (SDC) | payer MEDICARE ==
[2023-08-05 11:37] VITALS: BP 144/72; PULSE 66; RESP 18; TEMP 97.2
--- NOTE | 2023-08-05 13:02 | P.PCN ---
Date of Procedure: 08/05/23 Description of Procedure: PROCEDURE: Intrathecal pain pump analysis, programming and reprogramming, and intrathecal pain pump refill. PREOPERATIVE DIAGNOSES: 1. near empty intrathecal pain pump 2. opioid tolerance POSTOPERATIVE DIAGNOSES: 1. near empty intrathecal pain pump 2. 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 CONDITION: Stable. DESCRIPTION OF PROCEDURE: Intrathecal pain pump analysed, it showed patient currently had reservoir volume[19 ] mL. The patient is receiving medication [ 5] mg/ ml MORPHINE, and bupivacaine concentration [5 ] mg/ml. Patient receiving daily dose of [1.25 ] mg/day and bupivacaine [1.25 ] mg/day. Pain WAS a bit higher recently with reduction on last visit. The location of the pump left abdome ) Prepped with chlorhexidine x3 , then using 22-gauge needle [employer] kit advanced through the pump port, Total of [ 19] ml removed from the pump, the pump refills with the new medication total volume [40 ] ml . The concentration [5 ] mg /ml, and the bupivacaine concentration [5 ] mg/ml. Increase dose by 8% to 1.35 mg/day (as it was before) and patient will follow up with the pain clinic in 3 months.
== END ==
LOC: ORPAIN 11:01
PROVIDERS: ATTEND Hospitalist
DX: Z51.81 Encounter for therapeutic drug level monitoring (principal); M51.36 Other intervertebral disc degeneration, lumbar region; G89.29 Other chronic pain
CPT/HCPCS: 62369; J2274

== ENCOUNTER 2023-10-28 10:52 | Day surgery (SDC) | payer MEDICARE ==
[2023-10-24 09:03] VITALS: BMI 33.2
[~2023-10-28 10:52] MED LIST changes: -BUPIVACAINE UP TO 8 MG/ML, 31-60 ML SYRINGE MC ONE; +LACTATED RINGERS 1,000 ML IV SCH; -MORPHINE FOR ANAZAO - PER 10 MG MISCELLANE ONE
[2023-10-28] MEDS ORDERED: MORPHINE FOR ANAZAO - PER 10 MG MISCELLANE ONE (10:53)
[2023-10-28] MEDS ORDERED: BUPIVACAINE UP TO 8 MG/ML, 31-60 ML SYRINGE MC ONE (10:53)
[2023-10-28 11:27] VITALS: BP 136/66; PULSE 68; RESP 18; TEMP 97
--- NOTE | 2023-10-28 12:46 | P.PCN ---
Date of Procedure: 10/28/23 Procedure(s) Performed: Preoperative diagnosis: Lumbar post laminectomy, and chronic pain syndrome Status post intrathecal pump for chronic pain management Postoperative diagnosis: Lumbar post laminectomy, and chronic pain syndrome Status post intrathecal pump for chronic pain management PROCEDURES: 1. Intrathecal pump analysis. 2. Intrathecal pump reprogramming. 3. Intrathecal pump refill ANESTHESIA: None. EBL: None. COMPLICATIONS: None. IV FLUIDS: None. PROCEDURE INDICATION: Patient is well known to pain clinic for management of intrathecal pump for his chronic pain management. Patient denied any side effects with the medications. But patient complaining(low back pain and pain radiating to his lower extremities getting worse. . On examination lower extremity muscle strength normal, no clonus. Patient came here for pump refill for 3 months duration of the the intrathecal pump. PROCEDURE DESCRIPTION: The patient was seen and identified in the preoperative area. Risks, benefits, complications, and alternatives were discussed with the patient. The patient agreed to proceed with the procedure. Intrathecal pump was analyzed and displayed the following information: Type: SynchroMed Type II B Medication: Morphine 5 mg/ml , and bupivacaine 5 MG per mL infusion at 1.35 mg/day Pump Volume: 40 ml [place] Volume: 17.3 ml PTM: Disabled At this time, the area of the intrathecal pump was exposed, prepped with ChloraPrep x3 , and draped in the usual sterile fashion. After which, the [employer] template was used to identify the area of the skin overlying the refill port . After which, a 22-gauge Sultana needle attached to an extension tubing, which was clamped, attached to a syringe and inserted through the skin into the refill port. At that point, 18.5 mL of clear fluid was aspirated. The tubing was reclamped. This was discarded. A new medication was then identified from pharmacy, . This was then attached to a filter, which was primed and subsequently injected into the pump in increments with intermittent aspiration to ensure placement into the intrathecal pump. At this point, the pump was reprogrammed. Type: SynchroMed Type II B Medication: continue Morphine 5 mg/ml , and bupivacaine 5 MG per mL infusion at 1.35 mg/day preservative-free morphine sulfate at 1.35 mg per day of preservative free bupivacaine Pump Volume: 40 ml [place] Volume: 40 ml PTM: Disabled The patient tolerated the procedure well and was sent home from the discharge area once meeting discharge criteria. Plan: The patient will follow up for further management and pump refills. Naloxone 4 mg intranasal for respiratory depression as needed, discussed with the patient and family how to use it if needed note= pump needs to be replaced by April 2024, we'll arrange for pump replacement next visit
== END 2023-10-28 12:00 | disposition home or self-care (01) ==
LOC: ORPAIN 10:52
PROVIDERS: ATTEND Specialist
DX: M96.1 Postlaminectomy syndrome, not elsewhere classified (principal); G89.4 Chronic pain syndrome
CPT/HCPCS: 62370; J2274

== ENCOUNTER 2024-01-20 10:45 | Day surgery (SDC) | payer MEDICARE ==
[2024-01-20] MEDS ORDERED: MORPHINE FOR ANAZAO - PER 10 MG MISCELLANE ONE (10:46)
[2024-01-20] MEDS ORDERED: BUPIVACAINE UP TO 8 MG/ML, 31-60 ML SYRINGE MC ONE (10:46)
[2024-01-20 11:49] VITALS: BP 134/63; PULSE 55; RESP 16; TEMP 97.6
--- NOTE | 2024-01-20 11:55 | P.PCN ---
Date of Procedure: 01/20/24 Procedure(s) Performed: Preoperative diagnosis: Lumbar post laminectomy, and chronic pain syndrome Status post intrathecal pump for chronic pain management Postoperative diagnosis: Lumbar post laminectomy, and chronic pain syndrome Status post intrathecal pump for chronic pain management PROCEDURES: 1. Intrathecal pump analysis. 2. Intrathecal pump reprogramming. 3. Intrathecal pump refill ANESTHESIA: None. EBL: None. COMPLICATIONS: None. IV FLUIDS: None. PROCEDURE INDICATION: Patient is well known to pain clinic for management of intrathecal pump for his chronic pain management. Patient denied any side effects with the medications. But patient complaining(low back pain and pain radiating to his lower extremities getting worse. . On examination lower extremity muscle strength normal, no clonus. Patient came here for pump refill for 3 months duration of the the intrathecal pump. Patient reported that he is having increased pain over the last few months, and still the pain is 6-8/10 increased with any activity PROCEDURE DESCRIPTION: The patient was seen and identified in the preoperative area. Risks, benefits, complications, and alternatives were discussed with the patient. The patient agreed to proceed with the procedure. Intrathecal pump was analyzed and displayed the following information: Type: SynchroMed Type II B Medication: Morphine 5 mg/ml , and bupivacaine 5 MG per mL infusion at 1.35 mg/day Pump Volume: 40 ml [place] Volume: 17.3 ml PTM: Disabled At this time, the area of the intrathecal pump was exposed, prepped with ChloraPrep x3 , and draped in the usual sterile fashion. After which, the [employer] template was used to identify the area of the skin overlying the refill port . After which, a 22-gauge Sultana needle attached to an extension tubing, which was clamped, attached to a syringe and inserted through the skin into the refill port. At that point, 18 mL of clear fluid was aspirated. The tubing was reclamped. This was discarded. A new medication was then identified from pharmacy, . This was then attached to a filter, which was primed and subsequently injected into the pump in increments with intermittent aspiration to ensure placement into the intrathecal pump. At this point, the pump was reprogrammed. Type: SynchroMed Type II B Medication: Morphine 5 mg/ml , and bupivacaine 5 MG per mL infusion at 1.44 mg/day preservative-free morphine sulfate at 1.44 mg per day of preservative free bupivacaine which is equal to 7% increase in daily does Pump Volume: 40 ml [place] Volume: 40 ml PTM: Disabled The patient tolerated the procedure well and was sent home from the discharge area once meeting discharge criteria. Plan: The patient will follow up for further management and pump refills. Naloxone 4 mg intranasal for respiratory depression as needed, discussed with the patient and family how to use it if needed note= pump needs to be replaced by April 2024, we'll arrange for pump replacement next visit the referral to Dr. Ga Flores neurosurgeon was given few weeks ago
== END 2024-01-20 11:52 | disposition home or self-care (01) ==
LOC: ORPAIN 10:45
PROVIDERS: ATTEND Specialist
DX: G89.4 Chronic pain syndrome (principal)
CPT/HCPCS: 62369; J2274

== ENCOUNTER → 2024-03-22 | Outpatient (CLI) | payer MEDICARE ==
--- NOTE | 2024-03-22 12:19 | XR ---
EXAMINATION TYPE: XR chest 2V DATE OF EXAM: 03/22/2024 12:14 PM COMPARISON: Chest radiographs from 10/01/2023 TECHNIQUE: XR chest 2V Frontal and lateral views of the chest. CLINICAL INDICATION:Male, 73 years old with history of RADICULOPATHY, LUMBAR REGION; FINDINGS: Lungs/Pleura: There is no evidence of pleural effusion, focal consolidation, or pneumothorax. Elevat ion the right hemidiaphragm redemonstrated. Pulmonary vascularity: Unremarkable. Heart/mediastinum: Cardiomediastinal silhouette is unremarkable. Musculoskeletal: No acute osseous pathology. Increased kyphosis at the thoracal lumbar junction redem onstrated. IMPRESSION: No acute cardiopulmonary disease/process.
== END | disposition home or self-care (01) ==
LOC: RADXRMAIN 12:03
PROVIDERS: ATTEND Neurological Surgery
DX: J98.6 Disorders of diaphragm (principal); M54.16 Radiculopathy, lumbar region
CPT/HCPCS: 71046

== ENCOUNTER 2024-03-24 09:10 | Observation (INO) | payer MEDICARE ==
--- NOTE | 2024-03-24 10:37 | ED ---
General Adult HPI - General Chief complaint: Weakness Stated complaint: allergic reaction Time Seen by Provider: 03/24/24 09:54 Source: patient, family, EMS, RN notes reviewed Mode of arrival: EMS Limitations: no limitations - History of Present Illness Initial comments: Patient is a 73-year-old male presenting to the emergency department not feeling well. Onset of symptoms was last night. Patient did have his pain pump changed yesterday without complication. Patient feels chilled and flushed. Patient has paresthesias. Patient is fatigued and weak all over. No cough. Patient has been urinating frequently. No abdominal pain - Related Data Home Medications Medication Instructions Recorded Confirmed Elderberry Fruit [Elderberry] 350 mg PO DAILY 11/15/22 03/24/24 Valsartan [Diovan] 160 mg PO DAILY 11/15/22 03/24/24 Vit C/E/Zn/Coppr/Lutein/Zeaxan 2 cap PO DAILY 11/15/22 03/24/24 [Preservision Areds 2 Softgel] Vitamin B Complex 1 cap PO DAILY 11/15/22 03/24/24 Zinc Gluconate [Zinc] 50 mg PO DAILY 11/15/22 03/24/24 Aspirin 81 mg PO DAILY 08/01/23 03/24/24 Atorvastatin [Lipitor] 20 mg PO ONCE 03/24/24 03/24/24 Patient Own Pump 03/24/24 Turmeric Root Extract [Turmeric] 500 mg PO DAILY 03/24/24 03/24/24 Allergies Allergy/AdvReac Type Severity Reaction Status Date / Time bee venom protein (honey bee) Allergy Anaphylaxis Verified 03/24/24 11:11 Review of Systems ROS Statement: Those systems with pertinent positive or pertinent negative responses have been documented in the HPI. ROS Other: All systems not noted in ROS Statement are negative. Constitutional: Reports: chills Eyes: Denies: eye pain ENT: Denies: ear pain Respiratory: Denies: cough, dyspnea Cardiovascular: Denies: chest pain Endocrine: Reports: fatigue Gastrointestinal: Denies: abdominal pain Genitourinary: Reports: frequency Musculoskeletal: Denies: back pain Skin: Denies: rash Past Medical History Past Medical History: Eye Disorder, Hearing Disorder / Deafness, Osteoarthritis (OA) Additional Past Medical History / Comment(s): Degenerative arthritis of the spine, chronic BACK PAIN, macular degeneration ramin. eyes -(wet right eye,dry left eye) Intrathecal pain pump, Bilateral hearing aids. Morphine pain pump History of Any Multi-Drug Resistant Organisms: None Reported Past Surgical History: Back Surgery, Heart Catheterization, Hernia Repair, Joint Replacement, Orthopedic Surgery Additional Past Surgical History / Comment(s): Back surgeries x4 w/ fusion of 5 discs, bilat knee replacements, hemorrhoidectomy, COLONOSCOPY, bilat hand tendon. arthroscopy ramin knees, right eye injection FOR MACULAR DEGENERATION. Intrathecal Pain Pump surgically implanted - 08-25-2017. RIGHT HAND SURGERY W/ PINS, later removed. Right hand bone graft. Past Anesthesia/Blood Transfusion Reactions: No Reported Reaction Past Psychological History: No Psychological Hx Reported Smoking Status: Former smoker Past Alcohol Use History: Occasional Past Drug Use History: None Reported - Past Family History Mother Family Medical History: No Reported History Father Family Medical History: Cancer Additional Family Medical History / Comment(s): PROSTATE CANCER General Exam Limitations: no limitations General appearance: alert Head exam: Present: normocephalic Eye exam: Present: normal appearance ENT exam: Present: mucous membranes dry, other (Facial flushing, mild) Neck exam: Present: normal inspection. Absent: meningismus Respiratory exam: Present: normal lung sounds bilaterally Cardiovascular Exam: Present: regular rate, normal rhythm GI/Abdominal exam: Present: soft, other (Pain pump left abdomen with incision clean dry and intact. No tenderness. No warmth. No erythema.). Absent: tenderness Extremities exam: Present: normal inspection. Absent: pedal edema, calf tenderness Neurological exam: Present: alert Psychiatric exam: Present: normal affect, normal mood Skin exam: Present: normal color Course Vital Signs 03/24/24 09:20 Temperature 99.2 F Pulse Rate 62 Respiratory 20 Rate Blood Pressure 178/87 O2 Sat by Pulse 98 Oximetry EKG Findings - EKG Results: EKG: interpreted by ERMD (Left axis. LVH criteria.), sinus rhythm, normal ST/T EKG shows: bradycardia Medical Decision Making - Medical Decision Making Was pt. sent in by a medical professional or institution (, PA, RADIOLOGY THERAPIST, urgent care, hospital, or half-way...) When possible be specific @ -No Did you speak to anyone other than the patient for history (EMS, parent, family, police, friend...)? What history was obtained from this source @ - is present and helps provide history including recent procedure Did you review nursing and triage notes (agree or disagree)? Why? @ -I reviewed and agree with nursing and triage notes Were old charts reviewed (outside hosp., previous admission, EMS record, old EKG, old radiological studies, urgent care reports/EKG's, half-way records)? Report findings @ -No old charts were reviewed Differential Diagnosis (chest pain, altered mental status, abdominal pain women, abdominal pain men, vaginal bleeding, weakness, fever, dyspnea, syncope, headache, dizziness, GI bleed, back pain, seizure, CVA, palpatations, mental health, musculoskeletal)? @ -Differential Fever: Pneumonia, viral URI, endocarditis, myocarditis, pericarditis, otitis, sinusitis, peritonsillar Abscess, retropharyngeal Abscess, epiglottitis, peritonitis, appendicitis, Imani cystitis, diverticulitis, hepatitis, colitis, UTI, PID, TOA, pyelonephritis, prostatitis, epididymitis, meningitis, encephalitis, pulmonary embolism, CVA, thyroid storm, pancreatitis, adrenal crisis, cavernous sinus thrombosis, this is not meant to be an all-inclusive list. EKG interpreted by me (3pts min.). @ -As above X-rays interpreted by me (1pt min.). @ -Chest x-ray shows no acute CT interpreted by me (1pt min.). @ -None done U/S interpreted by me (1pt. min.). @ -None done What testing was considered but not performed or refused? (CT, X-rays, U/S, labs)? Why? @ -None What meds were considered but not given or refused? Why? @ -None Did you discuss the management of the patient with other professionals (professionals i.e. , PA, RADIOLOGY THERAPIST, lab, RT, psych nurse, nursing home social worker, data deliverables manager, teacher, armored vehicle officer, wrapper caser)? Give summary @ -Case discussed with Dr. Thomas who will admit covering Dr. Madison Was smoking cessation discussed for >3mins.? @ -No Was critical care preformed (if so, how long)? @ -No Were there social determinants of health that impacted care today? How? (Homelessness, low income, unemployed, alcoholism, drug addiction, transportation, low edu. Level, literacy, decrease access to med. care, halfway, rehab)? @ -No Was there de-escalation of care discussed even if they declined (Discuss DNR or withdrawal of care, Hospice)? DNR status @ -No What co-morbidities impacted this encounter? (DM, HTN, Smoking, COPD, CAD, Cancer, CVA, ARF, Chemo, Hep., AIDS, mental health diagnosis, sleep apnea, morbid obesity)? @ -None Was patient admitted / discharged? Hospital course, mention meds given and route, prescriptions, significant lab abnormalities, going to OR and other pertinent info. @ -Patient reevaluated and unchanged. No improvement with Tylenol. Patient presents with mild increase in temperature and concern for febrile symptoms. No source of infection is identified. Case discussed with Dr. Thomas will admit covering Dr. Madison. Patient does see Dr. Jerry for pain management Undiagnosed new problem with uncertain prognosis? @ -No Drug Therapy requiring intensive monitoring for toxicity (Heparin, Nitro, Insulin, Cardizem)? @ -No Were any procedures done? @ -No Diagnosis/symptom? @ -Myalgias, pain Acute, or Chronic, or Acute on Chronic? @ -Acute Uncomplicated (without systemic symptoms) or Complicated (systemic symptoms)? @ -Default Side effects of treatment? @ -No Exacerbation, Progression, or Severe Exacerbation? @ -No Poses a threat to life or bodily function? How? (Chest pain, [place], [place], pneumonia, PE, COPD, DKA, ARF, appy, cholecystitis, CVA, Diverticulitis, Homicidal, Suicidal, threat to staff... and all critical care pts) @ -No - Lab Data Result diagrams: 03/24/24 10:17 03/24/24 10:17 Lab Results 03/24/24 03/24/24 03/24/24 Range/Units 10:17 10:17 10:17 WBC 7.6 (3.8-10.6) k/uL RBC 4.66 (4.30-5.90) m/uL Hgb 13.3 (13.0-17.5) gm/dL Hct 42.0 (39.0-53.0) % MCV 90.0 (80.0-100.0) fL MCH 28.4 (25.0-35.0) pg MCHC 31.6 (31.0-37.0) g/dL RDW 11.9 (11.5-15.5) % Plt Count 289 (150-450) k/uL MPV 8.0 Neutrophils % 81 % Lymphocytes % 12 % Monocytes % 5 % Eosinophils % 1 % Basophils % 0 % Neutrophils # 6.2 (1.3-7.7) k/uL Lymphocytes # 0.9 L (1.0-4.8) k/uL Monocytes # 0.4 (0-1.0) k/uL Eosinophils # 0.1 (0-0.7) k/uL Basophils # 0.0 (0-0.2) k/uL PT 11.1 (10.0-12.5) sec INR 1.0 (<1.2) Sodium 144 (137-145) mmol/L Potassium 4.1 (3.5-5.1) mmol/L Chloride 113 H (98-107) mmol/L Carbon Dioxide 28 (22-30) mmol/L Anion Gap 3 mmol/L BUN 11 (9-20) mg/dL Creatinine 0.78 (0.66-1.25) mg/dL Est GFR (CKD-EPI)AfAm >90 (>60 ml/min/1.73 sqM) Est GFR (CKD-EPI)NonAf 89 (>60 ml/min/1.73 sqM) Glucose 118 H (74-99) mg/dL Plasma Lactic Acid Jono (0.7-2.0) mmol/L Calcium 9.2 (8.4-10.2) mg/dL Total Bilirubin 0.6 (0.2-1.3) mg/dL AST 24 (17-59) U/L ALT 15 (4-49) U/L Alkaline Phosphatase 123 (38-126) U/L Troponin I (0.000-0.034) ng/mL Total Protein 7.0 (6.3-8.2) g/dL Albumin 3.7 (3.5-5.0) g/dL Urine Color Urine Appearance (Clear) Urine pH (5.0-8.0) Ur Specific Omer (1.001-1.035) Urine Protein (Negative) Urine Glucose (UA) (Negative) Urine Ketones (Negative) Urine Blood (Negative) Urine Nitrite (Negative) Urine Bilirubin (Negative) Urine Urobilinogen (<2.0) mg/dL Ur Leukocyte Esterase (Negative) Influenza Type A (PCR) (Not Detectd) Influenza Type B (PCR) (Not Detectd) RSV (PCR) (Not Detectd) SARS-CoV-2 (PCR) (Not Detectd) 03/24/24 03/24/24 03/24/24 Range/Units 10:17 10:17 10:22 WBC (3.8-10.6) k/uL RBC (4.30-5.90) m/uL Hgb (13.0-17.5) gm/dL Hct (39.0-53.0) % MCV (80.0-100.0) fL MCH (25.0-35.0) pg MCHC (31.0-37.0) g/dL RDW (11.5-15.5) % Plt Count (150-450) k/uL MPV Neutrophils % % Lymphocytes % % Monocytes % % Eosinophils % % Basophils % % Neutrophils # (1.3-7.7) k/uL Lymphocytes # (1.0-4.8) k/uL Monocytes # (0-1.0) k/uL Eosinophils # (0-0.7) k/uL Basophils # (0-0.2) k/uL PT (10.0-12.5) sec INR (<1.2) Sodium (137-145) mmol/L Potassium (3.5-5.1) mmol/L Chloride (98-107) mmol/L Carbon Dioxide (22-30) mmol/L Anion Gap mmol/L BUN (9-20) mg/dL Creatinine (0.66-1.25) mg/dL Est GFR (CKD-EPI)AfAm (>60 ml/min/1.73 sqM) Est GFR (CKD-EPI)NonAf (>60 ml/min/1.73 sqM) Glucose (74-99) mg/dL Plasma Lactic Acid Jono 1.3 (0.7-2.0) mmol/L Calcium (8.4-10.2) mg/dL Total Bilirubin (0.2-1.3) mg/dL AST (17-59) U/L ALT (4-49) U/L Alkaline Phosphatase (38-126) U/L Troponin I <0.012 (0.000-0.034) ng/mL Total Protein (6.3-8.2) g/dL Albumin (3.5-5.0) g/dL Urine Color Colorless Urine Appearance Clear (Clear) Urine pH 8.0 (5.0-8.0) Ur Specific Omer 1.007 (1.001-1.035) Urine Protein Negative (Negative) Urine Glucose (UA) Negative (Negative) Urine Ketones Negative (Negative) Urine Blood Negative (Negative) Urine Nitrite Negative (Negative) Urine Bilirubin Negative (Negative) Urine Urobilinogen <2.0 (<2.0) mg/dL Ur Leukocyte Esterase Negative (Negative) Influenza Type A (PCR) (Not Detectd) Influenza Type B (PCR) (Not Detectd) RSV (PCR) (Not Detectd) SARS-CoV-2 (PCR) (Not Detectd) 03/24/24 Range/Units 11:49 WBC (3.8-10.6) k/uL RBC (4.30-5.90) m/uL Hgb (13.0-17.5) gm/dL Hct (39.0-53.0) % MCV (80.0-100.0) fL MCH (25.0-35.0) pg MCHC (31.0-37.0) g/dL RDW (11.5-15.5) % Plt Count (150-450) k/uL MPV Neutrophils % % Lymphocytes % % Monocytes % % Eosinophils % % Basophils % % Neutrophils # (1.3-7.7) k/uL Lymphocytes # (1.0-4.8) k/uL Monocytes # (0-1.0) k/uL Eosinophils # (0-0.7) k/uL Basophils # (0-0.2) k/uL PT (10.0-12.5) sec INR (<1.2) Sodium (137-145) mmol/L Potassium (3.5-5.1) mmol/L Chloride (98-107) mmol/L Carbon Dioxide (22-30) mmol/L Anion Gap mmol/L BUN (9-20) mg/dL Creatinine (0.66-1.25) mg/dL Est GFR (CKD-EPI)AfAm (>60 ml/min/1.73 sqM) Est GFR (CKD-EPI)NonAf (>60 ml/min/1.73 sqM) Glucose (74-99) mg/dL Plasma Lactic Acid Jono (0.7-2.0) mmol/L Calcium (8.4-10.2) mg/dL Total Bilirubin (0.2-1.3) mg/dL AST (17-59) U/L ALT (4-49) U/L Alkaline Phosphatase (38-126) U/L Troponin I (0.000-0.034) ng/mL Total Protein (6.3-8.2) g/dL Albumin (3.5-5.0) g/dL Urine Color Urine Appearance (Clear) Urine pH (5.0-8.0) Ur Specific Omer (1.001-1.035) Urine Protein (Negative) Urine Glucose (UA) (Negative) Urine Ketones (Negative) Urine Blood (Negative) Urine Nitrite (Negative) Urine Bilirubin (Negative) Urine Urobilinogen (<2.0) mg/dL Ur Leukocyte Esterase (Negative) Influenza Type A (PCR) Not Detected (Not Detectd) Influenza Type B (PCR) Not Detected (Not Detectd) RSV (PCR) Not Detected (Not Detectd) SARS-CoV-2 (PCR) Not Detected (Not Detectd) Disposition Clinical Impression: Myalgia Disposition: ADMITTED IP TO THIS HOSP Is patient prescribed a controlled substance at d/c from ED?: No Referrals: Ghanshyam Correa MD [Primary Care Provider] - 1-2 days Time of Disposition: 13:28
[2024-03-24 10:41] LABS: Appearance,Urine Clear (Clear); Bilirubin,Urine Negative (Negative); Blood,Urine Negative (Negative); Color,Urine Colorless; Glucose,Urine (UA) Negative (Negative); Ketones,Urine Negative (Negative); Leukocyte Esterase,Urine Negative (Negative); Nitrite,Urine Negative (Negative); Protein,Urine Negative (Negative); Specific Gravity,Urine 1.007 (1.001-1.035); Urobilinogen,Urine <2.0 mg/dL (<2.0)
[2024-03-24 10:41] LABS: Basophils % (A) 0 %; Eosinophils # (A) 0.1 k/uL (0-0.7); Eosinophils % (A) 1 %; HGB 13.3 gm/dL (13.0-17.5); Lymphocytes # (A) 0.9 k/uL (1.0-4.8); Lymphocytes % (A) 12 %; MCH 28.4 pg (25.0-35.0); MCHC 31.6 g/dL (31.0-37.0); Monocytes # (A) 0.4 k/uL (0-1.0); Monocytes % (A) 5 %; Neutrophils # (A) 6.2 k/uL (1.3-7.7); Neutrophils % (A) 81 %; Platelet Count 289 k/uL (150-450); RBC 4.66 m/uL (4.30-5.90); RDW 11.9 % (11.5-15.5); WBC 7.6 k/uL (3.8-10.6)
[2024-03-24 11:02] LABS: ALT 15 U/L (4-49); AST 24 U/L (17-59); African American GFR (CKD) >90 (>60 ml/min/1.73 sqM); Albumin 3.7 g/dL (3.5-5.0); Alkaline Phosphatase 123 U/L (38-126); Anion Gap 3 mmol/L; Blood Urea Nitrogen 11 mg/dL (9-20); Calcium 9.2 mg/dL (8.4-10.2); Carbon Dioxide 28 mmol/L (22-30); Chloride 113 mmol/L (98-107); Glucose 118 mg/dL (74-99); Non-African American GFR(CKD) 89 (>60 ml/min/1.73 sqM); Potassium 4.1 mmol/L (3.5-5.1); Sodium 144 mmol/L (137-145); Total Bilirubin 0.6 mg/dL (0.2-1.3)
[2024-03-24 11:05] LABS: Prothrombin Time 11.1 sec (10.0-12.5)
[2024-03-24] MEDS: ACETAMINOPHEN TAB 500 MG TAB PO STA (11:23)
[2024-03-24] MEDS: SODIUM CHLORIDE 0.9% 1,000 ML IV STA (11:28)
--- NOTE | 2024-03-24 12:18 | XR ---
EXAMINATION TYPE: XR chest 2V DATE OF EXAM: 03/24/2024 COMPARISON: Chest x-ray 2 days earlier HISTORY: Fever. TECHNIQUE: Frontal and lateral views of the chest are obtained. FINDINGS: There is elevated and eventrated anterior aspect of the right hemidiaphragm. There is no rausch spicious new focal air space opacity, pleural effusion, or pneumothorax seen. The cardiac silhouette size is mildly enlarged. The osseous structures are intact. IMPRESSION: Mild cardiomegaly without suspicious new acute pulmonary infiltrate.
[2024-03-24] MEDS ORDERED: NALOXONE 0.4 MG/ML 1 ML VIAL IV PRN (13:28)
[2024-03-24] MEDS: MORPHINE SULFATE 4 MG/ML SYRINGE IVP STA (13:41)
[2024-03-24] MEDS: ONDANSETRON 4 MG/2 ML VIAL IVP STA (14:10)
[2024-03-24] MEDS: SODIUM CHLORIDE 0.9% 1,000 ML IV SCH (14:25)
[2024-03-24] MEDS: ACETAMINOPHEN TAB 325 MG TAB PO PRN (18:23)
--- NOTE | 2024-03-24 20:58 | P.HPIM ---
History of Present Illness H&P Date: 03/24/24 Chief Complaint: Weak and tired This is a pleasant 73-year-old patient who follows with Dr. Ghanshyam Correa. Chronic stable medical conditions include hard of hearing, osteoarthritis of the lower spine with previous 4 surgeries, macular degeneration of both the eyes, intrathecal pain pump. Patient is accompanied by his . Patient yesterday had a pain pump replaced which is morphine by , out of town. Since then patient been feeling hot and cold flashes. Body aches all over. Decreased appetite a bit restless. Also patient yesterday had at least 4-5 bowel movements/diarrhea. Rather loose and explosive foul-smelling. Last bout of diarrhea about 7:30 AM this morning. Patient continues to feel uncomfortable. Denies any respiratory urinary symptoms. Patient also due to follow-up with Dr. Jerry pain specialist here locally for follow-up. Because patient is very hard of hearing has helped with the history. Waiting for new hearing aids Review of systems: GEN.: Tired, body aches EYES: None HEENT: Very hard of hearing NECK: None RESPIRATORY: None CARDIOVASCULAR: As above GASTROINTESTINAL: None GENITOURINARY: None MUSCULOSKELETAL: Chronic low back pain. Acute body ache muscle aches LYMPHATICS: None HEMATOLOGICAL: None PSYCHIATRY: None NEUROLOGICAL: None Past medical history to include: Hard of hearing, osteoarthritis, DJD of the spine, macular degeneration above the eyes, dry left eye, intrathecal pain pump, Social history: No smoking. No alcohol. . 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 Conjunctiva normal. HEENT: External appearance of nose and ears normal, oral cavity grossly normal. NECK: JVD not raised; masses not palpable. HEART: First and second heart sounds are normal; no edema. LUNGS: Respiratory rate normal; clear to auscultation. ABDOMEN: Soft, nontender, liver spleen not palpable, no masses. Palpable left abdominal wall pain pump. PSYCH: Alert and oriented x3; mood and affect tired MUSCULOSKELETAL:No Clubbing/cyanosis;muscles-grossly intact, OA INVESTIGATIONS, reviewed in the clinical context: March 24, 2024: White count 7.6 hemoglobin 13.3 platelets 289 sodium 144 potassium 4.1 BUN 11 creatinine 0.78 Troponin I less than 0.012 UA: Negative Influenza type A, type B, RSV, COVID-19: PCR Assessment and plan: -Patient presents with unwell body aches started yesterday after pain pump was replaced. Patient had about 4-5 large bowel movements yesterday evening also had 1 episode 730 this morning. This could well be a viral acute gastroenteri tis with systemic symptoms. Also given that pain pump was placed need to rule out systemic infection from same. Currently no obvious indication of the same. Blood cultures IV fluids At this point hold off any antibiotics. Further depending on clinical course -Essential hypertension Diovan 160 mg a day -Hard of hearing, awaiting new sets of hearing aids -Chronic low back pain from arthritis. Patient's had 4 previous surgeries. Has a pain pump -Obesity BMI 31.6 Weight loss measures -Left kidney nephrolithiasis 1-2 mm. Asymptomatic This point blood cultures be done. To follow empirically. IV fluids. Light diet. Dr. Jerry has been consulted. Past Medical History Past Medical History: Eye Disorder, Hearing Disorder / Deafness, Osteoarthritis (OA) Additional Past Medical History / Comment(s): Degenerative arthritis of the spine, chronic BACK PAIN, macular degeneration ramin. eyes -(wet right eye,dry left eye) Intrathecal pain pump, Bilateral hearing aids. Morphine pain pump History of Any Multi-Drug Resistant Organisms: None Reported Past Surgical History: Back Surgery, Heart Catheterization, Hernia Repair, Joint Replacement, Orthopedic Surgery Additional Past Surgical History / Comment(s): Back surgeries x4 w/ fusion of 5 discs, bilat knee replacements, hemorrhoidectomy, COLONOSCOPY, bilat hand tendon. arthroscopy ramin knees, right eye injection FOR MACULAR DEGENERATION. Intrathecal Pain Pump surgically implanted - 08-25-2017. RIGHT HAND SURGERY W/ PINS, later removed. Right hand bone graft. Past Anesthesia/Blood Transfusion Reactions: No Reported Reaction Past Psychological History: No Psychological Hx Reported Smoking Status: Former smoker Past Alcohol Use History: Occasional Past Drug Use History: None Reported - Past Family History Mother Family Medical History: No Reported History Father Family Medical History: Cancer Additional Family Medical History / Comment(s): PROSTATE CANCER Medications and Allergies Home Medications Medication Instructions Recorded Confirmed Type Elderberry Fruit [Elderberry] 350 mg PO DAILY 11/15/22 03/24/24 History Valsartan [Diovan] 160 mg PO DAILY 11/15/22 03/24/24 History Vit C/E/Zn/Coppr/Lutein/Zeaxan 2 cap PO DAILY 11/15/22 03/24/24 History [Preservision Areds 2 Softgel] Vitamin B Complex 1 cap PO DAILY 11/15/22 03/24/24 History Zinc Gluconate [Zinc] 50 mg PO DAILY 11/15/22 03/24/24 History Aspirin 81 mg PO DAILY 08/01/23 03/24/24 History Atorvastatin [Lipitor] 20 mg PO ONCE 03/24/24 03/24/24 History Patient Own Pump 03/24/24 History Turmeric Root Extract [Turmeric] 500 mg PO DAILY 03/24/24 03/24/24 History Allergies Allergy/AdvReac Type Severity Reaction Status Date / Time bee venom protein (honey bee) Allergy Anaphylaxis Verified 03/24/24 11:11 Physical Exam Vitals: Vital Signs Temp Pulse Resp BP Pulse Ox 03/24/24 18:11 100.4 F H 63 16 150/77 96 03/24/24 16:24 98.8 F 56 L 16 164/98 94 L 03/24/24 14:18 98.8 F 67 15 154/77 95 03/24/24 13:53 99.9 F H 63 17 165/96 97 03/24/24 09:20 99.2 F 62 20 178/87 98 Intake and Output 03/24/24 03/24/24 03/24/24 06:59 14:59 22:59 Other: Weight 99.79 kg Results CBC & Chem 7: 03/24/24 10:17 03/24/24 10:17 Labs: Abnormal Lab Results - Last 24 Hours (Table) 03/24/24 03/24/24 Range/Units 10:17 10:17 Lymphocytes # 0.9 L (1.0-4.8) k/uL Chloride 113 H (98-107) mmol/L Glucose 118 H (74-99) mg/dL
[2024-03-24] MEDS: NAPROXEN 250 MG TAB PO SCH (22:14)
[2024-03-24] MEDS: ZOLPIDEM 5 MG TAB PO PRN (22:14)
[2024-03-24] MEDS: ENOXAPARIN 40 MG/0.4 ML SYRINGE SQ SCH (22:16)
[2024-03-24] MEDS: ONDANSETRON 4 MG/2 ML VIAL IVP PRN (22:19)
[2024-03-24 22:24] VITALS: RESP 18
[2024-03-24] MEDS: LACTATED RINGERS 1,000 ML IV SCH (23:17)
[2024-03-25] MEDS: MORPHINE SULFATE 2 MG/ML SYRINGE IVP STA ×2 (00:17→05:57)
[2024-03-25] MEDS: SODIUM CHLORIDE 0.65% NASAL SPRAY 44 ML BTL NASAL PRN (00:40)
[2024-03-25 06:05] LABS: Basophils % (A) 0 %; Eosinophils % (A) 0 %; HCT 42.6 % (39.0-53.0); HGB 13.6 gm/dL (13.0-17.5); Lymphocytes # (A) 1.4 k/uL (1.0-4.8); Lymphocytes % (A) 14 %; MCH 28.9 pg (25.0-35.0); MCHC 31.9 g/dL (31.0-37.0); MCV 90.6 fL (80.0-100.0); Mean Platelet Volume 8.5; Monocytes # (A) 0.7 k/uL (0-1.0); Monocytes % (A) 8 %; Neutrophils # (A) 7.4 k/uL (1.3-7.7); Neutrophils % (A) 77 %; Platelet Count 346 k/uL (150-450); RDW 12.1 % (11.5-15.5); WBC 9.6 k/uL (3.8-10.6)
[2024-03-25 06:36] LABS: ALT 16 U/L (4-49); AST 26 U/L (17-59); African American GFR (CKD) >90 (>60 ml/min/1.73 sqM); Albumin 3.8 g/dL (3.5-5.0); Albumin/Globulin Ratio 1.1; Alkaline Phosphatase 125 U/L (38-126); Anion Gap 4 mmol/L; Blood Urea Nitrogen 9 mg/dL (9-20); Calcium 9.1 mg/dL (8.4-10.2); Carbon Dioxide 27 mmol/L (22-30); Chloride 112 mmol/L (98-107); Globulin 3.4 g/dL; Glucose 119 mg/dL (74-99); Non-African American GFR(CKD) 86 (>60 ml/min/1.73 sqM); Potassium 4.4 mmol/L (3.5-5.1); Sodium 143 mmol/L (137-145); Total Bilirubin 0.6 mg/dL (0.2-1.3); Total Protein 7.2 g/dL (6.3-8.2)
[2024-03-25] MEDS: ZINC SULFATE 220 MG CAP PO SCH (08:29)
[2024-03-25] MEDS: ASPIRIN 81 MG PO SCH (08:29)
[2024-03-25] MEDS ORDERED: NON FORMULARY DRUG (Elderberry Fruit [Elderberry] 350 MG Capsule) PO SCH (09:00)
[2024-03-25] MEDS ORDERED: NON FORMULARY DRUG (Turmeric Root Extract [Turmeric] 500 MG Tablet) PO SCH (09:00)
[2024-03-25] MEDS ORDERED: NON FORMULARY DRUG (Vitamin B Complex [Vitamin B Complex] 1 EACH Capsule) PO SCH (09:00)
[2024-03-25] MEDS: VALSARTAN 160 MG TAB PO SCH (09:04)
[2024-03-25] MEDS: VIT A,C & E-LUTEIN-MINERALS 1 EACH TAB PO SCH (09:05)
--- NOTE | 2024-03-25 12:45 | P.PAINCN ---
History of Present Illness - Reason for Consult Consult date: 03/25/24 - History of Present Illness This is 73 years old male with chronic low back pain and he had a chronic pain syndrome, and patient was on intrathecal pain pump infusion, and 2 days ago patient had revision of intrathecal pain pump which was done by the neurosurgeon Dr. Ga Dickinson, patient reported that 1 day after the replacement he started having severe generalized pain, diarrhea, before the intrathecal pain pump repl acement patient was getting continuous infusion of intrathecal morphine at a dose of 1.35 mg/day, which was increased after the intrathecal pain pump replacement to 1.44 mg/day Past Medical History Past Medical History: Eye Disorder, Hearing Disorder / Deafness, Osteoarthritis (OA) Additional Past Medical History / Comment(s): Degenerative arthritis of the spine, chronic BACK PAIN, macular degeneration ramin. eyes -(wet right eye,dry left eye) Intrathecal pain pump, Bilateral hearing aids. Morphine pain pump History of Any Multi-Drug Resistant Organisms: None Reported Past Surgical History: Back Surgery, Heart Catheterization, Hernia Repair, Joint Replacement, Orthopedic Surgery Additional Past Surgical History / Comment(s): Back surgeries x4 w/ fusion of 5 discs, bilat knee replacements, hemorrhoidectomy, COLONOSCOPY, bilat hand tendon. arthroscopy ramin knees, right eye injection FOR MACULAR DEGENERATION. Intrathecal Pain Pump surgically implanted - 08-25-2017. RIGHT HAND SURGERY W/ PINS, later removed. Right hand bone graft. Past Anesthesia/Blood Transfusion Reactions: No Reported Reaction Past Psychological History: No Psychological Hx Reported Smoking Status: Former smoker Past Alcohol Use History: Occasional Past Drug Use History: None Reported - Past Family History Mother Family Medical History: No Reported History Father Family Medical History: Cancer Additional Family Medical History / Comment(s): PROSTATE CANCER Medications and Allergies Home Medications Medication Instructions Recorded Confirmed Type Elderberry Fruit [Elderberry] 350 mg PO DAILY 11/15/22 03/24/24 History Valsartan [Diovan] 160 mg PO DAILY 11/15/22 03/24/24 History Vit C/E/Zn/Coppr/Lutein/Zeaxan 2 cap PO DAILY 11/15/22 03/24/24 History [Preservision Areds 2 Softgel] Vitamin B Complex 1 cap PO DAILY 11/15/22 03/24/24 History Zinc Gluconate [Zinc] 50 mg PO DAILY 11/15/22 03/24/24 History Aspirin 81 mg PO DAILY 08/01/23 03/24/24 History Atorvastatin [Lipitor] 20 mg PO ONCE 03/24/24 03/24/24 History Patient Own Pump 03/24/24 History Turmeric Root Extract [Turmeric] 500 mg PO DAILY 03/24/24 03/24/24 History Allergies Allergy/AdvReac Type Severity Reaction Status Date / Time bee venom protein (honey bee) Allergy Anaphylaxis Verified 03/24/24 11:11 Physical Exam Vitals: Vital Signs Temp Pulse Pulse Resp BP BP Pulse Ox 03/25/24 07:10 98.1 F 63 18 183/90 97 03/25/24 01:55 99.4 F 60 18 163/70 96 03/24/24 19:54 98 F 61 18 158/83 96 03/24/24 18:11 100.4 F H 63 16 150/77 96 03/24/24 16:24 98.8 F 56 L 16 164/98 94 L 03/24/24 14:18 98.8 F 67 15 154/77 95 03/24/24 13:53 99.9 F H 63 17 165/96 97 Intake and Output 03/24/24 03/25/24 03/25/24 22:59 06:59 14:59 Other: # Voids 1 1 Weight 99.79 kg Physical examination: GENERAL: BMI 31.6, laying in bed slightly uncomfortable alert oriented x 3, complaining of generalized pain EYES: Pupils equal. Conjunctiva normal. HEENT: External appearance of nose and ears normal, oral cavity grossly normal. NECK: JVD not raised; masses not palpable. HEART: First and second heart sounds are normal; no edema. LUNGS: Respiratory rate normal; clear to auscultation. ABDOMEN: Soft, nontender, liver spleen not palpable, no masses. Palpable left abdominal wall pain pump. The intrathecal pain pump location look normal no erythema, no discharge, no swelling PSYCH: Alert and oriented x3; mood and affect tired MUSCULOSKELETAL:No Clubbing/cyanosis;muscles-grossly intact, Results CBC & Chem 7: 03/25/24 04:39 03/25/24 04:39 Labs: Abnormal Lab Results - Last 24 Hours (Table) 03/24/24 03/24/24 03/25/24 Range/Units 10:17 10:17 04:39 Lymphocytes # 0.9 L (1.0-4.8) k/uL Chloride 113 H 112 H (98-107) mmol/L Glucose 118 H 119 H (74-99) mg/dL Assessment and Plan Plan: Assessment and plan: -Patient presents with unwell body aches started yesterday after pain pump was replaced. Patient had about 4-5 large bowel movements This could well be a v iral acute gastroenteritis with systemic symptoms. Also given that pain pump was placed need to rule out systemic infection from same. Currently no obvious indication of the same.(The incision at the pump sites left upper abdominal area look clear no sign of infection, no erythema, no discharge at the surgical site. -Opioid withdrawal. Complaining of generalized pain, for this reason I will give a bolus of intrathecal morphine, and I will increase the intrathecal opioid dose Intrathecal pain pump analyzed showed patient currently receiving intrathecal morphine sulfate concentration 5 mg/mL and bupivacaine concentration 5 mg/mL and patient receiving a daily dose of 1.44 mg/day of morphine sulfate, and bupivacaine 1.44 mg/day, patient given a bolus of morphine sulfate 0.5 mg over 10 minutes, and I increased the intrathecal morphine dose to 1.51 mg/day which is equal to 5% increase of the daily dose. Will monitor patient response to this changes Time with Patient: Less than 30 PQRS Measure Charge Sheet - Pain Location Generalized Non-Pharmacological Interventions: Darkened Room, Distraction, Emotional/Spiritual Support, Environmental Control Pharmacological Interventions: PRN Medication PQRS Narrative: Smoking Status Former smoker Narcotic Agreement Date Signed 03/09/20 Blood Pressure [Left Arm] 183/90 Blood Pressure 150/77 Pain Intensity [Generalized] 8 Pain Intensity 8 Pain Scale Used Numeric (1 - 10) Scale Used Numeric (1 - 10) Hx Alcohol Use (MH) Yes: RARE Home Medications: Ambulatory Orders Elderberry Fruit [Elderberry] 350 mg PO DAILY 11/15/22 Valsartan [Diovan] 160 mg PO DAILY 11/15/22 Vit C/E/Zn/Coppr/Lutein/Zeaxan [Preservision Areds 2 Softgel] 2 cap PO DAILY 11/15/22 Vitamin B Complex 1 cap PO DAILY 11/15/22 Zinc Gluconate [Zinc] 50 mg PO DAILY 11/15/22 Aspirin 81 mg PO DAILY 08/01/23 Atorvastatin [Lipitor] 20 mg PO ONCE 03/24/24 Patient Own Pump 03/24/24 Turmeric Root Extract [Turmeric] 500 mg PO DAILY 03/24/24
[2024-03-25 14:49] VITALS: BP 106/53; PULSE 75; TEMP 98
--- NOTE | 2024-03-25 19:47 | P.DS ---
Providers Date of admission: 03/24/24 13:29 Expected date of discharge: 03/25/24 Attending physician: Alfonzo Thomas Consults: 03/24/24 13:28 Consult Physician Routine Consulting Provider: Ella Jerry Consult Reason/Comments: eval pain pump Do you want consulting provider notified?: Yes Primary care physician: Ghanshyam [facility] Course: Chief Complaint: Weak and tired This is a pleasant 73-year-old patient who follows with Dr. Ghanshyam Correa. Chronic stable medical conditions include hard of hearing, osteoarthritis of the lower spine with previous 4 surgeries, macular degeneration of both the eyes, intrathecal pain pump. Patient is accompanied by his . Patient yesterday had a pain pump replaced which is morphine by , out of town. Since then patient been feeling hot and cold flashes. Body aches all over. Decreased appetite a bit restless. Also patient yesterday had at least 4-5 bowel movements/diarrhea. Rather loose and explosive foul-smelling. Last bout of diarrhea about 7:30 AM this morning. Patient continues to feel uncomfortable. Denies any respiratory urinary symptoms. Patient also due to follow-up with Dr. Jerry pain specialist here locally for follow-up. Because patient is very hard of hearing has helped with the history. Waiting for new hearing aids March 25: Patient was seen by Dr. Jerry from pain services. He made adjustments to the intrathecal pain pump morphine. After further evaluation it is now felt that patient was having withdrawal symptoms from morphine. That includes a mixture of symptoms to include diarrhea, myalgia, restlessness,. After receiving extra morphine patient did better this afternoon. Spoke to the patient and the . Has they being discharged later today. If continues to do well. Discussion and discharge planning more than 35 minutes Past medical history to include: Hard of hearing, osteoarthritis, DJD of the spine, macular degeneration above the eyes, dry left eye, intrathecal pain pump, Social history: No smoking. No alcohol. . 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 Conjunctiva normal. HEENT: External appearance of nose and ears normal, oral cavity grossly normal. NECK: JVD not raised; masses not palpable. HEART: First and second heart sounds are normal; no edema. LUNGS: Respiratory rate normal; clear to auscultation. ABDOMEN: Soft, nontender, liver spleen not palpable, no masses. Palpable left abdominal wall pain pump. PSYCH: Alert and oriented x3; mood and affect tired MUSCULOSKELETAL:No Clubbing/cyanosis;muscles-grossly intact, OA INVESTIGATIONS, reviewed in the clinical context: March 25: White count 9.6 hemoglobin 13.6 platelets 346 potassium 4.4 creatinine 0.85 March 24, 2024: White count 7.6 hemoglobin 13.3 platelets 289 sodium 144 potassium 4.1 BUN 11 creatinine 0.78 Troponin I less than 0.012 UA: Negative Influenza type A, type B, RSV, COVID-19: PCR Assessment and plan: -Morphine withdrawal symptoms. Patient seen by Dr. Jerry from pain services. Morphine dose increased. Also given IV morphine. Patient will follow-up with pain services Given normal white count no fever patient feeling much better, infection ruled out -Essential hypertension Diovan 160 mg a day -Hard of hearing, awaiting new sets of hearing aids -Chronic low back pain from arthritis. Patient's had 4 previous surgeries. Has a pain pump -Obesity BMI 31.6 Weight loss measures -Left kidney nephrolithiasis 1-2 mm. Asymptomatic Disposition: Home Past Medical History Past Medical History: Eye Disorder, Hearing Disorder / Deafness, Osteoarthritis (OA) Additional Past Medical History / Comment(s): Degenerative arthritis of the spine, chronic BACK PAIN, macular degeneration ramin. eyes -(wet right eye,dry left eye) Intrathecal pain pump, Bilateral hearing aids. Morphine pain pump History of Any Multi-Drug Resistant Organisms: None Reported Past Surgical History: Back Surgery, Heart Catheterization, Hernia Repair, Joint Replacement, Orthopedic Surgery Additional Past Surgical History / Comment(s): Back surgeries x4 w/ fusion of 5 discs, bilat knee replacements, hemorrhoidectomy, COLONOSCOPY, bilat hand tendon. arthroscopy ramin knees, right eye injection FOR MACULAR DEGENERATION. Intrathecal Pain Pump surgically implanted - 08-25-2017. RIGHT HAND SURGERY W/ PINS, later removed. Right hand bone graft. Past Anesthesia/Blood Transfusion Reactions: No Reported Reaction Past Psychological History: No Psychological Hx Reported Smoking Status: Former smoker Past Alcohol Use History: Occasional Past Drug Use History: None Reported Plan - Discharge Summary New Discharge Prescriptions: Continue Valsartan [Diovan] 160 mg PO DAILY Elderberry Fruit [Elderberry] 350 mg PO DAILY Turmeric Root Extract [Turmeric] 500 mg PO DAILY Zinc Gluconate [Zinc] 50 mg PO DAILY Vitamin B Complex 1 cap PO DAILY Vit C/E/Zn/Coppr/Lutein/Zeaxan [Preservision Areds 2 Softgel] 2 cap PO DAILY Aspirin 81 mg PO DAILY Atorvastatin [Lipitor] 20 mg PO ONCE Patient Own Pump Discharge Medication List Elderberry Fruit [Elderberry] 350 mg PO DAILY 11/15/22 [History] Valsartan [Diovan] 160 mg PO DAILY 11/15/22 [History] Vit C/E/Zn/Coppr/Lutein/Zeaxan [Preservision Areds 2 Softgel] 2 cap PO DAILY 11/15/22 [History] Vitamin B Complex 1 cap PO DAILY 11/15/22 [History] Zinc Gluconate [Zinc] 50 mg PO DAILY 11/15/22 [History] Aspirin 81 mg PO DAILY 08/01/23 [History] Atorvastatin [Lipitor] 20 mg PO ONCE 03/24/24 [History] Patient Own Pump 03/24/24 [History] Turmeric Root Extract [Turmeric] 500 mg PO DAILY 03/24/24 [History] Follow up Appointment(s)/Referral(s): Ghanshyam Correa MD [Primary Care Provider] - 1-2 days (Office is not answering at time of discharge. Please call for follow-up appointment.) Pain Clinic,[facility] [NON-STAFF] - 1-2 days (Office is not answering at time of discharge. Please call for follow-up appointment.) Patient Instructions/Handouts: Musculoskeletal Pain (GEN) Discharge Disposition: HOME SELF-CARE
== END 2024-03-25 14:25 | disposition home or self-care (01) ==
LOC: EC 09:10 → 6NMEDSUR 13:29 → 4SSUR 17:30
PROVIDERS: ADMIT Hospitalist; ATTEND Hospitalist
DX: F11.23 Opioid dependence with withdrawal (principal); I10 Essential (primary) hypertension; H91.90 Unspecified hearing loss, unspecified ear; G89.29 Other chronic pain; M54.50 Low back pain, unspecified; N20.0 Calculus of kidney; E66.9 Obesity, unspecified; Z68.31 Body mass index [BMI] 31.0-31.9, adult; Z11.52 Encounter for screening for COVID-19; Z87.891 Personal history of nicotine dependence; Z79.82 Long term (current) use of aspirin; Z79.899 Other long term (current) drug therapy
CPT/HCPCS: 96376 ×2; 96361 ×3; 96372 ×2; 96374; 96375; 99285; 36415; 80053 ×2; 82550; 83605; 84484; 85025 ×2; 85610; 81003; 87040; 87636; 71046; G0378 ×3; J2270 ×2; J2405 ×2; J1650 ×2

== ENCOUNTER → 2024-04-08 | Day surgery (SDC) | payer MEDICARE ==
[2024-04-07 09:38] VITALS: BMI 32.5
[2024-04-08 11:27] VITALS: BP 136/67; PULSE 53; RESP 16; TEMP 97.6
[2024-04-08 11:37] LABS: Glucose,Whole Blood 90 mg/dL (70-110)
--- NOTE | 2024-04-08 12:52 | P.PCN ---
Description of Procedure: OPERATION: Intrathecal pain pump analysis, programming and reprogramming, and intrathecal pain pump refill. PREOPERATIVE DIAGNOSES: 1. near empty intrathecal pain pump time for refill. 2. 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 ANESTHESIA: None. CONDITION: Stable. Description of the procedure; Intrathecal pain pump analysed ,it showed patient currently had reservoir volume[13.7 ] mL. The patient is receiving medication morphine sulfate5.0 mg/ ml, and bupivacaine concentration 5.0 mg/ml. Patient receiving daily dose of morphine sulfate 1.5121 mg/day and bupivacaine 1.5121 mg/day. Pain is well controlled , patient using medication for breakthrough pain orally . The location of the pump ( Left flank ) Prepped with chlorhexidine x3 , then using 22-gauge needle [employer] kit advanced through the pump port, Total of 14 ml removed from the pump, expected volume 13.7 ml , the pump refilled with the new medication total volume 40 ml . The concentration of morphine sulfate [5.0 ] mg /ml , and the bupivacaine concentration [5.0 ] mg/ml. The patient will continue to see the daily dose morphine sulfate [1.5121] mg/day and bupivacaine [1.5121 ] mg/day and patient will follow up with the pain clinic in 3 months. Prescription refill was given to the patient
== END ==
LOC: ORPAIN 11:05
PROVIDERS: ATTEND Pain Medicine Interventional Pain Medicine
DX: Z51.81 Encounter for therapeutic drug level monitoring (principal); M96.1 Postlaminectomy syndrome, not elsewhere classified

== ENCOUNTER → 2024-07-01 | Day surgery (SDC) | payer MEDICARE ==
[~2024-07-01] MED LIST changes: +BUPIVACAINE 8.1-40 MG/ML, 31-60 ML SYRINGE MC ONE; +MORPHINE FOR ANAZAO - PER 10 MG MISCELLANE ONE
[2024-07-01 11:26] VITALS: BP 151/74; PULSE 55; RESP 20; TEMP 98
--- NOTE | 2024-07-01 12:45 | P.PCN ---
Description of Procedure: OPERATION: Intrathecal pain pump analysis, programming and reprogramming, and intrathecal pain pump refill. PREOPERATIVE DIAGNOSES: 1. near empty intrathecal pain pump time for refill. 2. 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 ANESTHESIA: None. CONDITION: Stable. Description of the procedure; Intrathecal pain pump analysed ,it showed patient currently had reservoir volume[ ] mL. The patient is receiving medication morphine sulfate/Dilaudid mg/ ml, and bupivacaine concentration mg/ml. Patient receiving daily dose of morphine sulfate mg/day and bupivacaine mg/day. Pain is well controlled , patient using medication for breakthrough pain orally . The location of the pump ( Left upper abdomen ) Prepped with chlorhexidine x3 , then using 22-gauge needle [employer] kit advanced through the pump port, Total of 14 ml removed from the pump, expected volume 14.7 ml , the pump refilled with the new medication total volume 40 ml . The concentration of morphine sulfate [5.0 ] mg /ml , and the bupivacaine concentration [5.0 ] mg/ml. The patient will continue to see the daily dose morphine sulfate [1.5121 ] mg/day and bupivacaine [1.5121 ] mg/day and patient will follow up with the pain clinic in 3 months. Prescription refill for was given to the patient
== END ==
LOC: ORPAIN 10:22
PROVIDERS: ATTEND Pain Medicine Interventional Pain Medicine
DX: M96.1 Postlaminectomy syndrome, not elsewhere classified (principal); F11.20 Opioid dependence, uncomplicated; Z45.49 Encounter for adjustment and management of other implanted nervous system device
CPT/HCPCS: 62370

== ENCOUNTER → 2024-09-23 | Day surgery (SDC) | payer MEDICARE ==
[2024-09-22 10:29] VITALS: BMI 32.6
[2024-09-23 11:06] VITALS: BP 148/77; PULSE 69; RESP 18; TEMP 98
--- NOTE | 2024-09-23 12:36 | P.PCN ---
Date of Procedure: 09/23/24 Procedure(s) Performed: OPERATION: Intrathecal pain pump analysis, programming and reprogramming, and intrathecal pain pump refill. PREOPERATIVE DIAGNOSES: 1. near empty intrathecal pain pump time for refill. 2. 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 ANESTHESIA: None. CONDITION: Stable. Description of the procedure; Intrathecal pain pump analysed ,it showed patient currently had reservoir volume[ 14.7 ] mL. The patient is receiving medication morphine sulfate 5 mg/ ml, and bupivacaine concentration 5 mg/ml. Patient receiving daily dose of morphine sulfate 1.5 mg/day and bupivacaine 1.5 mg/day. Pain is well controlled , patient using medication for breakthrough pain orally . The location of the pump ( Left upper abdomen ) Prepped with chlorhexidine x3 , then using 22-gauge needle [employer] kit advanced through the pump port, Total of 14 ml removed from the pump, expected volume 15 ml , the pump refilled with the new medication total volume 40 ml . The concentration of morphine sulfate [5.0 ] mg /ml , and the bupivacaine concentration [5.0 ] mg/ml. The patient will continue to see the daily dose morphine sulfate [1.5121 ] mg/day and bupivacaine [1.5121 ] mg/day and patient will follow up with the pain clinic in 3 months.
== END ==
LOC: ORPAIN 10:45
PROVIDERS: ATTEND Specialist
DX: Z45.1 Encounter for adjustment and management of infusion pump (principal); G89.29 Other chronic pain

== ENCOUNTER 2024-12-16 10:16 | Day surgery (SDC) | payer MEDICARE ==
[2024-12-16 10:50] VITALS: BP 143/70; PULSE 65; RESP 16
--- NOTE | 2024-12-16 11:05 | P.PCN ---
Date of Procedure: 12/16/24 Procedure(s) Performed: OPERATION: Intrathecal pain pump analysis, programming and reprogramming, and intrathecal pain pump refill. PREOPERATIVE DIAGNOSES: 1. near empty intrathecal pain pump time for refill. 2. 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 ANESTHESIA: None. CONDITION: Stable. Description of the procedure; Intrathecal pain pump analysed ,it showed patient currently had reservoir volume[ 14.7 ] mL. The patient is receiving medication morphine sulfate 5 mg/ ml, and bupivacaine concentration 5 mg/ml. Patient receiving daily dose of morphine sulfate 1.5 mg/day and bupivacaine 1.5 mg/day. Pain is well controlled , patient using medication for breakthrough pain orally . The location of the pump ( Left upper abdomen ) Prepped with chlorhexidine x3 , then using 22-gauge needle [employer] kit advanced through the pump port, Total of 15 ml removed from the pump, expected volume 15 ml , the pump refilled with the new medication total volume 40 ml . The concentration of morphine sulfate [5.0 ] mg /ml , and the bupivacaine concentration [5.0 ] mg/ml. The patient will continue to see the daily dose morphine sulfate [1.5121 ] mg/day and bupivacaine [1.5121 ] mg/day and patient will follow up with the pain clinic in 3 months.
== END 2024-12-16 11:02 | disposition home or self-care (01) ==
LOC: ORPAIN 10:16
PROVIDERS: ATTEND Specialist
DX: Z45.1 Encounter for adjustment and management of infusion pump (principal)
CPT/HCPCS: 62370